=== PATIENT | female | born 1945 | race Caucasian/White ===

== ENCOUNTER 2019-01-02 12:06 | Inpatient (IN) | payer MEDICARE | END 2019-01-07 15:30 | disposition home or self-care (01) | LOC: ED 12:06 → MED SURG 14:55 ==

== ENCOUNTER 2020-07-06 17:03 | Emergency (ER) | payer MEDICARE ==
[2020-07-06] MEDS ORDERED: Sodium Chloride 0.9% 500 ML 500 ML IV ONE ×2 (17:56→17:59)
[2020-07-06 18:05] VITALS: O2SAT 99
[2020-07-06 18:20] LABS: INR 1.39 (0.8-3.0); PROTIME 15.8 SECONDS (9.95-12.35)
--- NOTE | 2020-07-06 18:23 | ERPHSYRPT ---
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 She sees a evaluation analyst, Dr. Navarro. His office called the patient and contacted us to let us know that the patient would be coming to the emergency department. Patient states that she has had shortness of breath for over a year. She is on Eliquis chronically. In the last 2 months her shortness of breath has increased. Patient denies chest pain. Patient was sent here because of her shortness of breath and a finding of an elevated D-dimer, 597, to obtain a CTA of chest. Timing/Duration: gradual onset Activities at Onset: none Severity of Dyspnea-Max: mild Severity of Dyspnea-Current: mild Possible Cause: chronic episodes Modifying Factors: Improves With: activity, exertion Associated Symptoms: No cough, No chest pain/discomfort, No fever Allergies/Adverse Reactions: pumpkin Adverse Reaction (Verified 07/06/20 17:09) Home Medications: Furosemide 40 mg [Lasix 40 MG] 40 mg PO DAILY 05/28/16 [History] Metformin HCl 500 mg PO HS 05/28/16 [History] Methocarbamol 750 mg PO Q6-8HPRN PRN 05/28/16 [History] Potassium Chloride 10 Meq Tab* [Klor Con 10 MEQ] 10 meq PO DAILY 05/28/16 [History] Pravastatin Sodium [Pravachol] 20 mg PO HS 05/28/16 [History] Turmeric Root Extract [Turmeric] 500 mg PO DAILY 05/28/16 [History] Hydrocodone Bit/Acetaminophen [[place] 5-325 Tablet] 1 tab PO Q6HPRN PRN 08/27/16 [History] Fluticasone Propionate 2 spray IN BID 02/17/17 [History] Magnesium Oxide [Magnesium] 2 tab PO DAILY 02/17/17 [History] Melatonin/Pyridoxine HCl (B6) [Melatonin Tr 10 mg Tablet] 10 mg PO HS 02/17/17 [History] Olmesartan/Hydrochlorothiazide [Benicar Hct 20-12.5 mg Tablet] 0.5 tab PO QAM 02/17/17 [History] Albuterol Sulfate [Proair Respiclick] 90 mcg IH Q4-6HPRN PRN 01/02/19 [History] Diclofenac Sodium [Diclo Gel] 1 each TOP DAILY 01/02/19 [History] Duloxetine HCl 30 mg [Cymbalta 30 MG Capsule] 60 mg PO HS 01/02/19 [History] Ergocalciferol (Vitamin D2) [Vitamin D2] 1 each PO WEEKLY 01/02/19 [History] Furosemide 40 mg [Lasix 40 MG] 40 mg PO DAILY 01/02/19 [History] Gabapentin 100 mg PO TID 01/02/19 [History] Levothyroxine Sodium 25 Mcg [Synthroid 25 Mcg] 25 mcg PO DAILY 01/02/19 [History] Hx Tetanus, Diphtheria Vaccination/Date Given: Yes Hx Influenza Vaccination/Date Given: No Hx Pneumococcal Vaccination/Date Given: No Immunizations Up to Date: Yes Travel Risk - International Travel Have you traveled outside of the country in past 3 weeks: No - Coronavirus Screening Are you exhibiting any of the following symptoms?: No Close contact with a COVID-19 positive Pt in past 14-21 Days: No - Review of Systems Constitutional: No Symptoms Eyes: No Symptoms Ears, Nose, & Throat: No Symptoms Respiratory: Dyspnea Cardiac: No Symptoms, No Chest Pain Abdominal/Gastrointestinal: No Symptoms Genitourinary Symptoms: No Symptoms Musculoskeletal: No Symptoms Skin: No Symptoms Neurological: No Symptoms Psychological: No Symptoms Endocrine: No Symptoms Hematologic/Lymphatic: No Symptoms Immunological/Allergic: No Symptoms All Other Systems: Reviewed and Negative - Past Medical History Pertinent Past Medical History: No Neurological History: No Pertinent History ENT History: Cataracts Cardiac History: High Cholesterol, Hypertension, Other Respiratory History: Bronchitis Endocrine Medical History: Diabetes Type II, Hypothyroidism Musculoskeletal History: Arthritis, Fibromyalgia GI Medical History: No Pertinent History, Diverticulitis, Diverticulosis History: No Pertinent History Psycho-Social History: Depression Female Reproductive Disorders: No Pertinent History Other Medical History: FIBROMYALGIA, pt has "flappy valves" - Past Surgical History Past Surgical History: Yes Neuro Surgical History: No Pertinent History Cardiac: No Pertinent History Respiratory: No Pertinent History Gastrointestinal: No Pertinent History Genitourinary: No Pertinent History Musculoskeletal: Other Female Surgical History: Tubal Ligation Other Surgical History: repair of broken finger, right shoulder surgery,removed bone spurs, aurora . IOL, repair torn retna right eye - Social History Smoking Status: Former smoker How long have you smoked: Years Exposure to second hand smoke: No Drug Use: none Patient Lives Alone: Yes - Female History Hx Last Menstrual Period: post Hx Now: No - Nursing Vital Signs Nursing Vital Signs: Initial Vital Signs Temperature 98.0 F 07/06/20 17:18 Pulse Rate 81 07/06/20 17:18 Respiratory Rate 18 07/06/20 17:18 Blood Pressure 152/53 07/06/20 17:18 O2 Sat by Pulse Oximetry 93 L 07/06/20 17:18 Pain Scale Pain Intensity 0 - Physical Exam General Appearance: no apparent distress, alert, obese Eye Exam: PERRL/EOMI, eyes nml inspection Ears, Nose, Throat Exam: hearing grossly normal, normal ENT inspection, normal pharynx Neck Exam: normal inspection, non-tender, supple, full range of motion Respiratory Exam: normal breath sounds, lungs clear, prolonged expirations, No chest tenderness, No respiratory distress Cardiovascular/Chest Exam: normal heart sounds, regular rate/rhythm, murmur, normal peripheral pulses Abdominal/Gastrointestinal Exam: soft, normal bowel sounds, No tenderness Rectal Exam: not done Extremity Exam: non-tender, normal range of motion, normal inspection, normal capillary refill, no calf tenderness, no pedal edema, pelvis stable Neurologic Exam: alert, oriented x 3, cooperative, steward/stewardess club car II-XII nml as tested, normal mood/affect, nml cerebellar function, nml station & gait, sensation nml Skin Exam: normal color, warm, dry Lymphatic Exam: No adenopathy SpO2 Interpretation: normal SpO2: 99 O2 Delivery: Room Air - Course Nursing assessment & vital signs reviewed: Yes EKG Interpreted by Me: RATE (77), Sinus Rhythm, NORMAL AXIS, LAFB, NORMAL INTERVALS, Right Bundle Branch Block, NORMAL ST-T, Other (Comparison EKG is 01/09/2020. There is persistent LA FB. There is resolution of ST depression ST elevation. There are no acute ischemic changes on today's EKG.) Ordered Tests: Active Orders 24 hr Category Date Time Status Matcher STAT Care 07/06/20 17:22 Active EKG-ER Only STAT Care 07/06/20 17:22 Active IV Insertion STAT Care 07/06/20 17:22 Active Oxygen-ED Only Nasal Cannula 2 lpm Care 07/06/20 17:22 Active Pulse Oximetry (ED) STAT Care 07/06/20 17:22 Active CHEST WITH CONTRAST [CT] Stat Exams 07/06/20 18:23 Taken PROTIME WITH INR Stat Lab 07/06/20 17:52 Completed TROPONIN Q3H Lab 07/06/20 17:18 Completed TROPONIN Q3H Lab 07/06/20 21:00 Ordered TROPONIN Q3H Lab 07/07/20 00:00 Ordered TROPONIN Q3H Lab 07/07/20 03:00 Ordered TROPONIN Q3H Lab 07/07/20 06:00 Ordered Medication Summary Discontinued Medications Generic Name Dose Route Start Last Admin Trade Name Freq PRN Reason Stop Dose Admin Sodium Chloride 500 mls @ 500 mls/hr 07/06/20 17:56 07/06/20 18:00 Sodium Chloride 0.9% 500 Ml IV 07/06/20 18:55 500 mls/hr .Q1H ONE Administration Sodium Chloride Confirm 07/06/20 17:59 Sodium Chloride 0.9% 500 Ml Administered 07/06/20 18:00 Dose 500 mls @ ud IV .STK-MED ONE Lab/Rad Data: Laboratory Results 07/06/20 07/06/20 Range/Units 17:52 17:18 PT 15.8 H (9.95-12.35) SECONDS INR 1.39 (0.8-3.0) Troponin I < 0.012 (0.000-0.034) ng/mL - Progress Progress: improved, re-examined Air Movement: good Progress Note: 07/06/20 19:08 CTA of chest reveals no acute cardiopulmonary process. There is no evidence of any pulmonary emboli. Medical decision making: This patient does not have pulmonary emboli. She has no chest pain and has chronic shortness of breath. Her BNP is normal as is her electrolytes. CAT scan does not show any acute cardiopulmonary process on the CTA of the chest. We will discharge the patient to home. 07/06/20 19:09 Blood Culture(s) Obtained: No Antibiotics given: No Counseled pt/family regarding: lab results, diagnosis, need for follow-up, rad results - Departure Departure Disposition: Home Clinical Impression: Chronic shortness of breath Condition: Stable Critical Care Time: No Referrals: DOREEN RAVI DO [Primary Care Provider] - Additional Instructions: Take your medications as prescribed. Follow-up with your primary care physician and evaluation analyst for further management.
[2020-07-06 19:02] VITALS: PULSE 76
[2020-07-06 19:09] VITALS: BP 149/82
--- NOTE | 2020-07-07 07:34 | XRAY ---
Indication: Short of breath. History DVT. Elevated d-dimer. Multiple contiguous axial images obtained through the chest using 80 cc Isovue 370 contrast and PE protocol. Comparison: CT chest without contrast May 14, 2020. There is good opacification of the pulmonary arteries to include the lobar and segmental branches. No pulmonary embolus. Heart is not enlarged. Aorta remains normal in course and caliber with mild scattered calcifications. No pathologic mediastinal/hilar lymphadenopathy. Lungs demonstrate minimal bilateral dependent atelectasis with stable large right upper lobe calcified granuloma. No new pulmonary mass, infiltrate, consolidation, or effusion. Bony thorax intact again with mild degenerative changes throughout the spine and right shoulder arthroplasty. Limited upper abdomen again demonstrates fatty liver. Impression: 1. Negative pulmonary embolus. No acute cardiopulmonary abnormalities. 2. Stable right upper lobe calcified granuloma, fatty liver, and chronic bony findings.
== END 2020-07-06 19:36 | disposition home or self-care (01) ==
LOC: ED 17:03
DX: R06.02 Shortness of breath (principal); R79.89 Other specified abnormal findings of blood chemistry; R06.00 Dyspnea, unspecified; E78.5 Hyperlipidemia, unspecified; I10 Essential (primary) hypertension; E11.9 Type 2 diabetes mellitus without complications; E03.9 Hypothyroidism, unspecified; Z79.01 Long term (current) use of anticoagulants
CPT/HCPCS: 36000; 36415; 71260; 80053; 83735; 83880; 84484; 85379; 85610; 93005; 93041; 94760; 96360; 99284

== ENCOUNTER 2022-03-17 09:56 | Day surgery (SDC) | payer MEDICARE ==
--- NOTE | 2022-03-17 08:43 | HP ---
DATE OF SURGERY: 03/17/2022 HISTORY OF PRESENT ILLNESS: The patient is a 76-year-old had some diarrhea, some right upper quadrant aches and pain at times. CT scan showed cholelithiasis, Off and on nausea worse with chicken. Denies any liver problems. PAST MEDICAL HISTORY: Arthritis, asthma, cataracts, chronic obstructive pulmonary disease, hypertension, heart disease, diabetes, detached retina in the past. PAST SURGICAL HISTORY: Cataracts. Knee arthroplasty in the past. MEDICATIONS: Fluticasone, gabapentin, furosemide, potassium chloride, fish oil, allopurinol, Eliquis, carvedilol, lisinopril, levothyroxine, escitalopram, vitamin D3, melatonin, magnesium. ALLERGIES: YEAST TABLETS. MULTI-VITAMINS. PUMPKIN. FAMILY HISTORY: Diabetes, hypertension, heart disease, migraines, Parkinson's, cancer. SOCIAL HISTORY: Former smoking. No alcohol abuse. REVIEW OF SYSTEMS: Fourteen systems reviewed. No chest pain or palpitations. Other systems negative or noncontributory as above and per preadmission questionnaire. PHYSICAL EXAMINATION: GENERAL: No acute distress. HEENT: Sclerae nonicteric. NECK: No JVD. CHEST: Equal excursion, nonlabored breathing. CVS: Regular rate and rhythm. ABDOMEN: Soft. No peritoneal signs. Mild right upper quadrant tenderness. EXTREMITIES: No significant edema. NEURO: Alert, oriented, moving extremities symmetrically. PSYCH: Appropriate mood and affect. IMPRESSION: Acute exacerbation of chronic cholecystitis, cholelithiasis. I feel the patient will benefit from cholecystectomy. Risks and benefits explained in detail including but not limited to bleeding or infection, risk of trocar injury or hernia, risk of bowel, bladder or blood vessel injury, risk of bile leak, bile duct injury, retained stone or sludge possibly requiring further procedure either open or ERCP, general risk of anesthesia, deep venous thrombosis, pulmonary embolism, pneumonia, perioperative risk of aches, pains, bloating, constipation and/or loose stools possibly even chronic in nature, possibility of no improvement of diarrhea. She understands and agrees to the planned procedure, will proceed with laparoscopic cholecystectomy with possible open.
[2022-03-17] MEDS ORDERED: Lactated Ringers 1,000 ML IV SCH (10:30)
[2022-03-17] MEDS ORDERED: Lactated Ringers 1,000 ML IV ONE (10:42)
[2022-03-17] MEDS ORDERED: MEFOXIN 2 GM PREMIX** 2 GM/50 ML ML IV ONE (10:43)
[2022-03-17] MEDS ORDERED: MEFOXIN 2 GM PREMIX** 2 GM/50 ML ML IV SCH (11:00)
[2022-03-17] MEDS ORDERED: Lasix 20 MG/2 ML ONE (11:00)
[2022-03-17 12:45] LABS: ANION GAP 7.8 MEQ/L (5-15); BLOOD UREA NITROGEN 14 mg/dL (7-17); CHLORIDE 104 mmol/L (98-107); Calcium 9.5 mg/dL (8.4-10.2); Carbon Dioxide 34 mmol/L (22-30); Creatinine 1 0.85 mg/dL (0.52-1.04); EST GLOMERULAR FILTRATION RATE > 60.0 ML/MIN; Glucose 125 mg/dL (74-106); Potassium 5.2 mmol/L (3.5-5.1); SODIUM 141 mmol/L (137-145)
[2022-03-17] MEDS ORDERED: Decadron 4 MG INJ ONE (12:47)
[2022-03-17] MEDS ORDERED: DIPRIVAN 200 MG/20 ML IV ONE (12:47)
[2022-03-17] MEDS ORDERED: Quelicin Fliptop 200 MG/10 ML ONE (12:47)
[2022-03-17] MEDS ORDERED: Zofran 4 MG/2 ML VIAL ONE (12:47)
[2022-03-17] MEDS ORDERED: Zemuron 100 MG/10 ML ONE (12:47)
[2022-03-17] MEDS ORDERED: Xylocaine-Mpf 2% 5 Ml Vial ONE (12:47)
[2022-03-17] MEDS ORDERED: Versed 2 MG/2 ML Injection ONE (12:47)
[2022-03-17] MEDS ORDERED: SUBLIMAZE 100 MCG/2 ML ONE ×2 (12:47→14:34)
[2022-03-17] MEDS ORDERED: Pre-Attached Lta Kit TP ONE (12:55)
[2022-03-17] MEDS ORDERED: OFIRMEV 100 ML IV ONE (12:55)
[2022-03-17] MEDS ORDERED: Sensorcaine 0.25% 10 ML ONE (12:58)
[2022-03-17] MEDS ORDERED: Ephedrine Sulfate 50 MG/ML ONE (13:23)
[2022-03-17] MEDS ORDERED: ATROPINE SULFATE 1MG ONE (13:25)
[2022-03-17] MEDS ORDERED: BRIDION 200MG/2ML IV ONE (13:52)
[2022-03-17] MEDS ORDERED: Proair Hfa MDI IH ONE (14:04)
--- NOTE | 2022-03-17 15:25 | OP ---
SURGERY DATE/TIME: 03/17/2022 PREOPERATIVE DIAGNOSIS: Acute exacerbation of chronic cholecystitis, symptomatic cholelithiasis. POSTOPERATIVE DIAGNOSIS: Acute exacerbation of chronic cholecystitis, symptomatic cholelithiasis. PROCEDURE: Laparoscopic cholecystectomy. SURGEON: Dr. Cosmo Valencia. ANESTHESIA: General. ESTIMATED BLOOD LOSS: Minimal. INDICATIONS: As noted above. Risks and benefits explained in detail but not limited to and consent obtained. DESCRIPTION OF PROCEDURE AND FINDINGS: The patient is taken to the operating room. General anesthesia induced. Abdomen prepped and draped in usual sterile fashion. After official time out and no disagreement with planned procedure, a transverse incision made in the supraumbilical area. Fascia grasped and pulled up. Veress needle inserted and tested with saline. Pneumoperitoneum accomplished insufflating opening pressure of 0-15. An 11 mm bladeless port and camera were inserted without difficulty followed by two - 5 mm right upper quadrant ports and 5 mm epigastric port. The liver was smooth. No nodules. It was fatty infiltrated. Gallbladder had some mild chronic inflammatory reaction. It was lifted up over the edge of the liver and laterally away from Calot's triangle. Dissection carried posterior, lateral to anterior fashion. Cystic duct and infundibular area slowly and carefully well skeletonized as well as cystic artery until the critical view was obtained both anteriorly and posteriorly. Once this is accomplished, the cystic duct and cystic artery were clipped x3 and divided in the usual fashion. The gallbladder is slowly and carefully dissected free from its dense attachment to liver bed staying directly on the gallbladder wall clipping additional oozing side branches off the cystic artery vein directly on the gallbladder wall as necessary. Just prior to releasing from final attachments to the anterior edge of the liver, the liver bed re-inspected. Clips noted in place in the cystic duct and cystic artery stumps. No signs of any active bleeding or bile leakage. It was felt there was no benefit from drain placement. The gallbladder was released from final attachments, placed in a bag, pulled up into the 10/11 site in the epigastrium area this was pulled upward. The fascia just spread slightly allowing the gallbladder and bag to be pulled free and passed off. Fascia defect closed with puncture closer device with #1 Vicryl. Copious amount of irrigation accomplished lateral to the liver and subhepatic space until clear. Liver bed re-inspected. Clips noted in place cystic duct and cystic artery stumps. No signs of any active bleeding or bile leakage. It was felt there was no benefit in drain placement. At this point pneumoperitoneum decompressed. Again, transfascial #1 Vicryl were used to close the 10/11 site fascia defect. Pneumoperitoneum decompressed. Skin incision closed with 4-0 Vicryl. It should be noted that we made the usual incisions, her tissue was quite thin and stretched requiring additional extra suturing at the site. Steri-Strips and sterile dressing applied. 0.25% Marcaine local injected along the skin incision fascial defect at the beginning of the procedure. There were no immediate complications. There was no family to discuss the findings with at this time. If someone returns and has questions, I can be paged.
[2022-03-17 16:08] VITALS: BP 147/78; PULSE 70; O2SAT 94
[2022-03-18] MEDS ORDERED: Lasix 20 MG/2 ML IV ONE (10:59)
== END 2022-03-17 16:15 | disposition home or self-care (01) ==
LOC: SDC 09:56
PROVIDERS: ATTEND Surgery
DX: K81.1 Chronic cholecystitis (principal); E11.9 Type 2 diabetes mellitus without complications
CPT/HCPCS: 36415; 80048; 82947; 82962; 99100; J0330; J0461; J0694; J1100; J1940; J2250; J2405; J2704; J3010; A9270-GY

== ENCOUNTER 2023-03-21 12:44 | Emergency (ER) | payer MEDICARE ==
[2023-03-21 13:05] VITALS: TEMP 98.9; O2SAT 94
--- NOTE | 2023-03-21 13:41 | ERPHSYRPT ---
- History of Present Illness Time Seen by Provider: 03/21/23 13:36 Source: patient Patient Subjective Stated Complaint: PT HERE FOR BLOOD IN URINE OFF AND ON FOR OVER A MONTH WORSE LAST COUPLE DAYS , PT WENT TO CLINIC AND WAS PRIYA.D HER WAIT WOULD BE 3-4 HOURS SO SHE CAME HERE Triage Nursing Assessment: PT ALERT, WALKED IN , RESP EASY, SKIN W/D/P.ABD SOFT, TENDER TO LOWER , Physician History: Patient is a 77-year-old white female who presents with a complaint of blood in the urine since yesterday. She also complains of frequency urgency and some chills. She has no CVA tenderness or pain. She is on Eliquis for DVT. Timing/Duration: yesterday Activites at Onset: none Quality: burning, pressure, sharpness Onset Location: suprapubic Pain Radiation: suprapubic Severity of Pain-Max: moderate Severity of Pain-Current: moderate Prior abdominal problems: none Sexual intercourse history: non-contributory Modifying Factors: Improves With: nothing Associated Symptoms: fever, dysuria, polyuria, urinary frequency, loss of bladder control, vaginal fluid leakage Allergies/Adverse Reactions: pumpkin Adverse Reaction (Verified 03/21/23 13:05) Home Medications: Albuterol Common Canister [Ventolin Common Canister] 2 puff IH Q6H PRN PRN 08/21/21 [History] Allopurinol 300 mg [Zyloprim 300 mg] 300 mg PO DAILY 08/21/21 [History] Apixaban [Eliquis 5 mg Tablet] 5 mg PO BID 08/21/21 [History] Carvedilol 3.125 mg [Coreg 3.125 MG] 3.125 mg PO BID 08/21/21 [History] Cholecalciferol (Vitamin D3) [Vitamin D3] 125 mcg PO DAILY 08/21/21 [History] Escitalopram Oxalate [Lexapro] 20 mg PO DAILY 08/21/21 [History] Ezetimibe 10 mg [Zetia 10 MG] 10 mg PO DAILY 08/21/21 [History] Fexofenadine HCl [Jenni Allergy] 60 mg PO DAILY PRN PRN 08/21/21 [History] Furosemide 40 mg [Lasix 40 MG] 40 mg PO DAILY 08/21/21 [History] Gabapentin [Neurontin ] 100 mg PO DAILY PRN PRN 08/21/21 [History] Lisinopril 5 mg [Zestril 5 MG] 2.5 mg PO DAILY 08/21/21 [History] Magnesium Oxide 400 mg [Mag-Ox 400] 400 mg PO DAILY 08/21/21 [History] Melatonin 10 mg PO HS 08/21/21 [History] Non-Formulary Drug [Non-Formulary Bulk Item] 1 drop DROPS QID PRN 08/21/21 [History] [place]-3/Dha/Epa/Fish Oil [[place]-3 Fish Oil 1,000 mg Sfgl] 1,000 mg PO BID 08/21/21 [History] Potassium Chloride 10 meq PO DAILY 08/21/21 [History] Fluticasone Propionate [24 Hour Allergy] 9.9 ml NS DAILY 02/18/22 [History] Multivitamin 1 each PO DAILY 02/18/22 [History] Hx Tetanus, Diphtheria Vaccination/Date Given: No Hx Influenza Vaccination/Date Given: Yes Hx Pneumococcal Vaccination/Date Given: No Travel Risk - International Travel Have you traveled outside of the country in past 3 weeks: No - Coronavirus Screening Are you exhibiting any of the following symptoms?: No Close contact with a COVID-19 positive Pt in past 14-21 Days: No - Vaccine Status Have you recieved a Covid-19 vaccination: Yes Supervisor Line Department: Unknown - Vaccination Dates Date of 2cond Vaccination (if applicable): 07/2020 Dates if Unknown: unknown - Review of Systems Constitutional: No Fever, No Chills Eyes: No Symptoms Ears, Nose, & Throat: No Symptoms Respiratory: No Cough, No Dyspnea Cardiac: No Chest Pain, No Edema, No Syncope Abdominal/Gastrointestinal: No Abdominal Pain, No Nausea, No Vomiting, No Diarrhea Genitourinary Symptoms: Dysuria, Frequency, Hematuria, Urgency Musculoskeletal: No Back Pain, No Neck Pain Skin: No Rash Neurological: No Dizziness, No Focal Weakness, No Sensory Changes Psychological: No Symptoms Endocrine: No Symptoms All Other Systems: Reviewed and Negative - Past Medical History Pertinent Past Medical History: Yes Neurological History: Migraines ENT History: Cataracts Cardiac History: Arrhythmia, High Cholesterol, Hypertension Respiratory History: COPD Endocrine Medical History: Other Musculoskeletal History: Degenerative Disk Disease, Osteoarthritis GI Medical History: Diverticulitis, Diverticulosis History: No Pertinent History Psycho-Social History: Depression Female Reproductive Disorders: No Pertinent History Other Medical History: RIGHT KNEE REPLACEMENT 07/2021. CHOLECYSTECTOMY 02/2022 - Past Surgical History Past Surgical History: Yes Neuro Surgical History: No Pertinent History Cardiac: No Pertinent History Respiratory: No Pertinent History Gastrointestinal: Cholecystectomy Genitourinary: No Pertinent History Musculoskeletal: Other Female Surgical History: Tubal Ligation Other Surgical History: repair of broken finger, right shoulder surgery,removed bone spurs, aurora . IOL, repair torn retna right eye, right total knee replacement - Social History Smoking Status: Former smoker How long have you smoked: Years Exposure to second hand smoke: No Drug Use: none Patient Lives Alone: Yes - Nursing Vital Signs Nursing Vital Signs: Initial Vital Signs Temperature 98.9 F 03/21/23 13:04 Pulse Rate 73 03/21/23 13:04 Respiratory Rate 18 03/21/23 13:04 Blood Pressure 174/81 03/21/23 13:04 O2 Sat by Pulse Oximetry 94 L 03/21/23 13:04 Pain Scale Pain Intensity 4 - Physical Exam General Appearance: mild distress, alert Eye Exam: PERRL/EOMI, eyes nml inspection Ears, Nose, Throat Exam: normal ENT inspection, TMs normal, pharynx normal, moist mucous membranes Neck Exam: normal inspection, non-tender, supple, full range of motion Respiratory Exam: normal breath sounds, lungs clear, No respiratory distress Cardiovascular Exam: regular rate/rhythm, normal heart sounds, normal peripheral pulses Gastrointestinal/Abdomen Exam: soft, No tenderness, No mass Pelvic Exam: normal external exam Back Exam: normal inspection, normal range of motion, No CVA tenderness, No vertebral tenderness Extremity Exam: normal inspection, normal range of motion, pelvis stable Neurologic Exam: alert, oriented x 3, cooperative, compensation vice president II-XII nml as tested, normal mood/affect, sensation nml, No motor deficits Skin Exam: normal color, warm, dry Lymphatic Exam: No adenopathy SpO2: 94 - Course Nursing assessment & vital signs reviewed: Yes Ordered Tests: Active Orders 24 hr Category Date Time Status CULTURE,URINE Stat Lab 03/21/23 13:10 Received UA W/RFX UR CULTURE Stat Lab 03/21/23 13:10 Completed Lab/Rad Data: Laboratory Results 03/21/23 Range/Units 13:10 Urine Color Yellow (Yellow) Urine Appearance Cloudy A (Clear) Urine pH 7.0 (4.6-8.0) Ur Specific [place] 1.010 (1.005-1.030) Urine Protein Negative (Negative) Urine Glucose (UA) Negative (Negative) mg/dL Urine Ketones Negative (Negative) Urine Blood Large A (Negative) Urine Nitrite Negative (Negative) Urine Bilirubin Negative (Negative) Urine Urobilinogen 0.2 (0.2) mg/dL Ur Leukocyte Esterase Large A (Negative) U Hyaline Cast (Auto) NONE SEEN (0-2) /LPF Urine Microscopic RBC >100 A (0-5) /HPF Urine Microscopic WBC 51-100 A (0-5) /HPF Ur Epithelial Cells Rare (None Seen) /HPF Urine Bacteria None Seen (None Seen) /HPF Urine Culture Reflexed YES (NO) - Progress Progress: unchanged Air Movement: good Blood Culture(s) Obtained: No Antibiotics given: Yes Medical Desision Making - Diagnostic Testing Diagnostic test were ordered, analyzed, and reviewed by me: Yes Radiological Interpretation: Reviewed by me - Risk of complications Minimal Risk: Minimal risk of morbidity - Departure Departure Disposition: Home Clinical Impression: Hemorrhagic cystitis Condition: Stable Critical Care Time: No Referrals: LUCAS BALLARD NP, RN [Primary Care Provider] - Follow up/PCP as directed Instructions: Urinary Tract Infection, Adult (DC) Prescriptions: Cephalexin Mh 500 mg [Keflex 500 mg] 500 mg PO QID #40 cap
[2023-03-21 13:53] LABS: Appearance Cloudy (Clear); Bacteria None Seen /HPF (None Seen); Bilirubin Negative (Negative); Blood Large (Negative); Epithelial Cells Rare /HPF (None Seen); Glucose, Urine Negative (Negative); Hyaline Casts NONE SEEN /LPF (0-2); Ketones Negative (Negative); Leukocyte Esterase Large (Negative); Nitrite Negative (Negative); Protein,Urine Dip Negative (Negative); RBC >100 /HPF (0-5); Urobilinogen 0.2 mg/dL (0.2); WBC 51-100 /HPF (0-5)
[2023-03-21 14:06] LABS: ADD URINE CULTURE? YES (NO)
[2023-03-21 14:28] VITALS: BP 131/55; PULSE 59; RESP 17
== END 2023-03-21 14:35 | disposition home or self-care (01) ==
LOC: ED 12:44
DX: N30.91 Cystitis, unspecified with hematuria (principal); R35.0 Frequency of micturition; E78.5 Hyperlipidemia, unspecified; I10 Essential (primary) hypertension; Z79.01 Long term (current) use of anticoagulants; Z79.899 Other long term (current) drug therapy
CPT/HCPCS: 81001; 87086; 99282

== ENCOUNTER 2024-06-18 11:21 | Observation (INO) | payer MEDICARE, OTHER ==
--- NOTE | 2024-06-18 11:33 | ERPHSYRPT ---
- History of Present Illness Time Seen by Provider: 06/18/24 11:32 Historian: patient, family, EMS, old records Exam Limitations: no limitations Patient Subjective Stated Complaint: pt c/o of cough, nausea, body aches, headache, weakness Triage Nursing Assessment: Pt brought to the ER by EMS, vitals wnl, rates generalized pain as 7/10, pulses normal, skin n/w/d, last intake yesterday, drank katharina ilene today, no difficulty breathing, nauseous but no vomiting, doesn't appear to be in any distress Physician History: This is an obese 79-year-old white female patient of Dr. Richards who presents to the emergency department transported by paramedics from home secondary to cough, nausea without vomiting, diarrhea, headache and bodyaches. She also has had decreased oral intake. She feels weak generally. The symptoms began yesterday. She denies chest pain. She denies shortness of breath. She has no abdominal pain. Patient has a history of migraine headaches, arrhythmia on Eliquis, hyperlipidemia, hypertension, COPD, and degenerative disc disease. She has no known exposures to individuals with similar symptoms or who have been diagnosed with flu's. Timing/Duration: yesterday Activities at Onset: none Severity of Pain-Max: mild Severity of Pain-Current: mild Modifying Factors: Improves With: other (Decreased oral intake, nausea and diarrhea) Associated Symptoms: diarrhea, loss of appetite, nausea, weakness, No chest pain, No fever/chills, No shortness of breath Previous symptoms: no prior history Allergies/Adverse Reactions: pumpkin Adverse Reaction (Verified 06/18/24 11:31) Home Medications: Albuterol Common Canister [Ventolin Common Canister] 3 puff IH Q4H PRN PRN 08/21/21 [History] Allopurinol 300 mg [Zyloprim 300 mg] 300 mg PO DAILY 08/21/21 [History] Apixaban [Eliquis 5 mg Tablet] 5 mg PO BID 08/21/21 [History] Carvedilol 3.125 mg [Coreg 3.125 MG] 6.25 mg PO BID 08/21/21 [History] Cholecalciferol (Vitamin D3) [Vitamin D3] 250 mcg PO DAILY 08/21/21 [History] Escitalopram Oxalate [Lexapro] 20 mg PO DAILY 08/21/21 [History] Ezetimibe 10 mg [Zetia 10 MG] 10 mg PO DAILY 08/21/21 [History] Fexofenadine HCl [Jenni Allergy] 60 mg PO DAILY PRN PRN 08/21/21 [History] Furosemide 40 mg [Lasix 40 MG] 40 mg PO DAILY 08/21/21 [History] Gabapentin [Neurontin ] 100 mg PO DAILY PRN PRN 08/21/21 [History] Lisinopril 5 mg [Zestril 5 MG] 2.5 mg PO DAILY 08/21/21 [History] Magnesium Oxide 400 mg [Mag-Ox 400] 250 mg PO UD 08/21/21 [History] Melatonin 10 mg PO HS 08/21/21 [History] [place]-3/Dha/Epa/Fish Oil [[place]-3 Fish Oil 1,000 mg Sfgl] 1,000 mg PO BID 08/21/21 [History] Potassium Chloride 10 meq PO DAILY 08/21/21 [History] Fluticasone Propionate [24 Hour Allergy] 9.9 ml NS DAILY 02/18/22 [History] Cyclobenzaprine HCl 5 mg PO UD PRN 06/18/24 [History] Hydrocodone/Acetaminophen [Hydrocodone-Acetamin 5-325 mg] 1 tab PO BID 06/18/24 [History] Polymyxin B Sulf/Trimethoprim [Polymyxin B-Tmp Eye Drops] 1 drop OP UD 06/18/24 [History] Tirzepatide [Mounjaro] 7.5 mg SQ WEEKLY 06/18/24 [History] Hx Tetanus, Diphtheria Vaccination/Date Given: No Hx Influenza Vaccination/Date Given: Yes Hx Pneumococcal Vaccination/Date Given: No Travel Risk - International Travel Have you traveled outside of the country in past 3 weeks: No - Emerging Infectious Disease Are you exhibiting symptoms associated with any current EIDs: Yes Symptoms: Cough: New Onset, Diarrhea, Headaches/Body Aches/ - Review of Systems Constitutional: Weakness Eyes: No Symptoms Ears, Nose, & Throat: No Symptoms Respiratory: No Symptoms Cardiac: No Symptoms Abdominal/Gastrointestinal: Abdominal Pain (Generalized but mild), Nausea, Diarrhea, Appetite Changes, No Vomiting Genitourinary Symptoms: No Symptoms Musculoskeletal: No Symptoms Skin: No Symptoms Neurological: No Symptoms Psychological: No Symptoms Endocrine: No Symptoms Hematologic/Lymphatic: No Symptoms Immunological/Allergic: No Symptoms All Other Systems: Reviewed and Negative - Past Medical History Pertinent Past Medical History: Yes Neurological History: Migraines ENT History: Cataracts Cardiac History: Arrhythmia, High Cholesterol, Hypertension Respiratory History: COPD Endocrine Medical History: Other Musculoskeletal History: Degenerative Disk Disease, Osteoarthritis GI Medical History: Diverticulitis, Diverticulosis History: No Pertinent History Psycho-Social History: Depression Female Reproductive Disorders: No Pertinent History Other Medical History: RIGHT KNEE REPLACEMENT 07/2021. CHOLECYSTECTOMY 02/2022 - Past Surgical History Past Surgical History: Yes Neuro Surgical History: No Pertinent History Cardiac: No Pertinent History Respiratory: No Pertinent History Gastrointestinal: Cholecystectomy Genitourinary: No Pertinent History Musculoskeletal: Other Female Surgical History: Tubal Ligation Other Surgical History: repair of broken finger, right shoulder surgery,removed bone spurs, aurora . IOL, repair torn retna right eye, right total knee replacement - Social History Smoking Status: Former smoker How long have you smoked: Years Exposure to second hand smoke: No Drug Use: none Patient Lives Alone: Yes - Social Determinants of Health Will the patient participate in the screening: Yes Do you worry about a steady place to live?: No Do you have any problems with any of the following?: No known problems In the past 12 months,have you had to go without utilities?: No Transportation Issues: No Has anyone in your support network made you feel unsafe?: No Have you or anyone in your house had to go without enough: No - Nursing Vital Signs Nursing Vital Signs: Initial Vital Signs Temperature 97.4 F 06/18/24 11:23 Pulse Rate 62 06/18/24 11:23 Blood Pressure 146/46 06/18/24 11:23 O2 Sat by Pulse Oximetry 95 06/18/24 11:23 Pain Scale Pain Intensity 7 - Physical Exam General Appearance: mild distress, alert, anxiety, obese Eye Exam: PERRL/EOMI, eyes nml inspection Ears, Nose, Throat Exam: normal ENT inspection, moist mucous membranes Neck Exam: normal inspection, non-tender, supple, full range of motion Respiratory Exam: normal breath sounds, lungs clear, airway intact, No chest ten derness, No respiratory distress Cardiovascular Exam: regular rate/rhythm, normal heart sounds, normal peripheral pulses Gastrointestinal/Abdomen Exam: soft, normal bowel sounds, No tenderness, No guarding Pelvic Exam: not done Rectal Exam: not done Back Exam: normal inspection, normal range of motion, No CVA tenderness, No vertebral tenderness Extremity Exam: normal inspection, normal range of motion, pelvis stable Neurologic Exam: alert, oriented x 3, cooperative, director of patient care II-XII nml as tested, sensation nml Skin Exam: normal color, warm, dry Lymphatic Exam: No adenopathy SpO2 Interpretation: normal SpO2: 95 O2 Delivery: Room Air - Course Nursing assessment & vital signs reviewed: Yes Ordered Tests: Active Orders 24 hr Category Date Time Status EKG-ER Only STAT Care 06/18/24 11:34 Active IV Insertion STAT Care 06/18/24 11:34 Active CHEST 1 VIEW (PORTABLE) Stat Exams 06/18/24 13:05 Taken AMYLASE Stat Lab 06/18/24 11:45 Completed CBC W DIFF Stat Lab 06/18/24 11:34 Completed CMP Stat Lab 06/18/24 11:45 Completed LIPASE Stat Lab 06/18/24 11:45 Completed MAGNESIUM Stat Lab 06/18/24 11:45 Completed MONO SCREEN Stat Lab 06/18/24 11:45 Completed NT PRO BNPII Stat Lab 06/18/24 11:45 Completed PROTIME WITH INR Stat Lab 06/18/24 11:45 Completed TROPONIN Q4H Lab 06/18/24 11:45 Completed TROPONIN Q4H Lab 06/18/24 15:45 Ordered TROPONIN Q4H Lab 06/18/24 19:45 Ordered UA W/RFX UR CULTURE Stat Lab 06/18/24 11:57 Completed Medication Summary Generic Name Dose Route Start Last Admin Trade Name Freq PRN Reason Stop Dose Admin Sodium Chloride 1,000 mls @ 100 mls/hr 06/18/24 11:45 06/18/24 11:50 Sodium Chloride 0.9% 1000 Ml IV 07/18/24 11:44 100 mls/hr .Q10H TOBY Administration Discontinued Medications Generic Name Dose Route Start Last Admin Trade Name Freq PRN Reason Stop Dose Admin Ondansetron HCl 4 mg 06/18/24 11:34 06/18/24 11:50 Ondansetron Hcl 4 Mg/2 Ml Vial IV 06/18/24 11:35 4 mg STAT ONE Administration Ondansetron HCl Confirm 06/18/24 11:50 Ondansetron Hcl 4 Mg/2 Ml Vial Administered 06/18/24 11:51 Dose 4 mg .ROUTE .STK-MED ONE Lab/Rad Data: Laboratory Result Diagrams 06/18/24 11:34 06/18/24 11:45 Laboratory Results 06/18/24 06/18/24 06/18/24 Range/Units 12:00 11:57 11:45 WBC (3.98-10.04) x10^3/uL RBC (3.93-5.22) x10^6/uL Hgb (11.2-15.7) g/dL Hct (34.1-44.9) % MCV (79.4-94.8) fL MCH (25.6-32.2) pg MCHC (32.2-35.5) g/dL RDW (11.7-14.4) % Plt Count (182-369) x10^3/uL MPV (9.4-12.3) fL Gran % (34.0-71.1) % Immature Gran % (Auto) (0.001-0.429) % Nucleat RBC Rel Count (0.00-0.2) % Eos # (Auto) (0.04-0.36) x10^3/uL Immature Gran # (Auto) (0.001-0.031) x10^3u/L Absolute Lymphs (auto) (1.18-3.74) x10^3/uL Absolute Monos (auto) (0.24-0.86) x10^3/uL Absolute Nucleated RBC (0.00-0.012) x10^3u/L Lymphocytes % (19.3-51.7) % Monocytes % (4.7-12.5) % Eosinophils % (0.7-5.8) % Basophils % (0.1-1.2) % Absolute Granulocytes (1.56-6.13) x10^3/uL Basophils # (0.01-0.08) x10^3/uL PT (9.4-12.5) SECONDS INR (0.8-3.0) Sodium (135-145) mmol/L Potassium (3.5-5.1) mmol/L Chloride (98-107) mmol/L Carbon Dioxide (22-30) mmol/L Anion Gap (5-15) MEQ/L BUN (7-17) mg/dL Creatinine (0.52-1.04) mg/dL Estimated GFR ML/MIN Glucose (74-106) mg/dL Calcium (8.4-10.2) mg/dL Magnesium (1.6-2.3) mg/dL Total Bilirubin (0.2-1.3) mg/dL AST (14-36) U/L ALT (0-35) U/L Alkaline Phosphatase (38-126) U/L Troponin I (0.000-0.033) ng/mL NT-Pro-B Natriuret Pep (<300) pg/mL Serum Total Protein (6.3-8.2) g/dL Albumin (3.5-5.0) g/dL Amylase (30-110) U/L Lipase (23-300) U/L Urine Color Yellow (Yellow) Urine Appearance Clear (Clear) Urine pH 7.0 (4.6-8.0) Ur Specific [place] 1.010 (1.005-1.030) Urine Protein Negative (Negative) Urine Glucose (UA) Negative (Negative) mg/dL Urine Ketones Negative (Negative) Urine Blood Negative (Negative) Urine Nitrite Negative (Negative) Urine Bilirubin Negative (Negative) Urine Urobilinogen 0.2 (0.2) mg/dL Ur Leukocyte Esterase Negative (Negative) U Hyaline Cast (Auto) NONE SEEN (0-2) /LPF Urine Microscopic RBC 0-2 (0-5) /HPF Urine Microscopic WBC 0-2 (0-5) /HPF Ur Epithelial Cells None Seen (None Seen) /HPF Urine Bacteria None Seen (None Seen) /HPF Urine Culture Reflexed NO (NO) Monoscreen NEGATIVE (NEGATIVE) Influenza Type A Ag NEGATIVE (NEGATIVE) Influenza Type B Ag NEGATIVE (NEGATIVE) RSV (PCR) NEGATIVE (NEGATIVE) SARS-CoV-2 (PCR) NEGATIVE (NEGATIVE) 06/18/24 06/18/24 06/18/24 Range/Units 11:45 11:45 11:45 WBC (3.98-10.04) x10^3/uL RBC (3.93-5.22) x10^6/uL Hgb (11.2-15.7) g/dL Hct (34.1-44.9) % MCV (79.4-94.8) fL MCH (25.6-32.2) pg MCHC (32.2-35.5) g/dL RDW (11.7-14.4) % Plt Count (182-369) x10^3/uL MPV (9.4-12.3) fL Gran % (34.0-71.1) % Immature Gran % (Auto) (0.001-0.429) % Nucleat RBC Rel Count (0.00-0.2) % Eos # (Auto) (0.04-0.36) x10^3/uL Immature Gran # (Auto) (0.001-0.031) x10^3u/L Absolute Lymphs (auto) (1.18-3.74) x10^3/uL Absolute Monos (auto) (0.24-0.86) x10^3/uL Absolute Nucleated RBC (0.00-0.012) x10^3u/L Lymphocytes % (19.3-51.7) % Monocytes % (4.7-12.5) % Eosinophils % (0.7-5.8) % Basophils % (0.1-1.2) % Absolute Granulocytes (1.56-6.13) x10^3/uL Basophils # (0.01-0.08) x10^3/uL PT 11.2 (9.4-12.5) SECONDS INR 1.03 (0.8-3.0) Sodium 137 (135-145) mmol/L Potassium 4.3 (3.5-5.1) mmol/L Chloride 104 (98-107) mmol/L Carbon Dioxide 23 (22-30) mmol/L Anion Gap 13.5 (5-15) MEQ/L BUN 13 (7-17) mg/dL Creatinine 0.81 (0.52-1.04) mg/dL Estimated GFR 74.3 ML/MIN Glucose 122 H (74-106) mg/dL Calcium 9.4 (8.4-10.2) mg/dL Magnesium 2.1 (1.6-2.3) mg/dL Total Bilirubin 0.70 (0.2-1.3) mg/dL AST 45 H (14-36) U/L ALT 39 H (0-35) U/L Alkaline Phosphatase 68 (38-126) U/L Troponin I < 0.012 (0.000-0.033) ng/mL NT-Pro-B Natriuret Pep 468 (<300) pg/mL Serum Total Protein 6.5 (6.3-8.2) g/dL Albumin 4.4 (3.5-5.0) g/dL Amylase 49 (30-110) U/L Lipase 141 (23-300) U/L Urine Color (Yellow) Urine Appearance (Clear) Urine pH (4.6-8.0) Ur Specific [place] (1.005-1.030) Urine Protein (Negative) Urine Glucose (UA) (Negative) mg/dL Urine Ketones (Negative) Urine Blood (Negative) Urine Nitrite (Negative) Urine Bilirubin (Negative) Urine Urobilinogen (0.2) mg/dL Ur Leukocyte Esterase (Negative) U Hyaline Cast (Auto) (0-2) /LPF Urine Microscopic RBC (0-5) /HPF Urine Microscopic WBC (0-5) /HPF Ur Epithelial Cells (None Seen) /HPF Urine Bacteria (None Seen) /HPF Urine Culture Reflexed (NO) Monoscreen (NEGATIVE) Influenza Type A Ag (NEGATIVE) Influenza Type B Ag (NEGATIVE) RSV (PCR) (NEGATIVE) SARS-CoV-2 (PCR) (NEGATIVE) 06/18/24 Range/Units 11:34 WBC 5.4 (3.98-10.04) x10^3/uL RBC 5.01 (3.93-5.22) x10^6/uL Hgb 13.4 (11.2-15.7) g/dL Hct 42.8 (34.1-44.9) % MCV 85.4 (79.4-94.8) fL MCH 26.7 (25.6-32.2) pg MCHC 31.3 L (32.2-35.5) g/dL RDW 13.2 (11.7-14.4) % Plt Count 216 (182-369) x10^3/uL MPV 10.4 (9.4-12.3) fL Gran % 65.0 (34.0-71.1) % Immature Gran % (Auto) 0.4 (0.001-0.429) % Nucleat RBC Rel Count 0.0 (0.00-0.2) % Eos # (Auto) 0.06 (0.04-0.36) x10^3/uL Immature Gran # (Auto) 0.02 (0.001-0.031) x10^3u/L Absolute Lymphs (auto) 1.12 L (1.18-3.74) x10^3/uL Absolute Monos (auto) 0.66 (0.24-0.86) x10^3/uL Absolute Nucleated RBC 0.00 (0.00-0.012) x10^3u/L Lymphocytes % 20.7 (19.3-51.7) % Monocytes % 12.2 (4.7-12.5) % Eosinophils % 1.1 (0.7-5.8) % Basophils % 0.6 (0.1-1.2) % Absolute Granulocytes 3.52 (1.56-6.13) x10^3/uL Basophils # 0.03 (0.01-0.08) x10^3/uL PT (9.4-12.5) SECONDS INR (0.8-3.0) Sodium (135-145) mmol/L Potassium (3.5-5.1) mmol/L Chloride (98-107) mmol/L Carbon Dioxide (22-30) mmol/L Anion Gap (5-15) MEQ/L BUN (7-17) mg/dL Creatinine (0.52-1.04) mg/dL Estimated GFR ML/MIN Glucose (74-106) mg/dL Calcium (8.4-10.2) mg/dL Magnesium (1.6-2.3) mg/dL Total Bilirubin (0.2-1.3) mg/dL AST (14-36) U/L ALT (0-35) U/L Alkaline Phosphatase (38-126) U/L Troponin I (0.000-0.033) ng/mL NT-Pro-B Natriuret Pep (<300) pg/mL Serum Total Protein (6.3-8.2) g/dL Albumin (3.5-5.0) g/dL Amylase (30-110) U/L Lipase (23-300) U/L Urine Color (Yellow) Urine Appearance (Clear) Urine pH (4.6-8.0) Ur Specific [place] (1.005-1.030) Urine Protein (Negative) Urine Glucose (UA) (Negative) mg/dL Urine Ketones (Negative) Urine Blood (Negative) Urine Nitrite (Negative) Urine Bilirubin (Negative) Urine Urobilinogen (0.2) mg/dL Ur Leukocyte Esterase (Negative) U Hyaline Cast (Auto) (0-2) /LPF Urine Microscopic RBC (0-5) /HPF Urine Microscopic WBC (0-5) /HPF Ur Epithelial Cells (None Seen) /HPF Urine Bacteria (None Seen) /HPF Urine Culture Reflexed (NO) Monoscreen (NEGATIVE) Influenza Type A Ag (NEGATIVE) Influenza Type B Ag (NEGATIVE) RSV (PCR) (NEGATIVE) SARS-CoV-2 (PCR) (NEGATIVE) - Progress Progress: improved Progress Note: 06/18/24 12:03 My medical decision making and the assignment of at least moderate complexity to this patient's medical issue today is based on review of the patient's past medical history, review the patient's medication list, reviewed patient drug allergy list, history present illness and physical findings on examination. The workup in this patient includes placement of intravenous line, infusion of low rate normal saline, infusion of Zofran, CBC, CMP, amylase, lipase, magnesium level, urinalysis, troponin level BNP, twelve-lead EKG, viral test, monotest. Differential diagnosis includes but is not limited to dehydration, urinary tract infection, viral illness, electrolyte abnormalities, arrhythmia, myocardial infarction 06/18/24 15:16 I interpreted the patient's laboratory data results. Based on the laboratory data results I do not see an acute, emergent medical issue. I interpreted the patient's preliminary chest x-ray report. Compared to portable chest x-ray dated 01/30/2021, there is a questionable finding of cardiomegaly. There is also question of right base infiltrate versus fluid. Clinically, the patient continues to be weak and is short of breath. Her room air oxygen saturation level was initially 88 to 89% on room air. She was placed on 2 L of oxygen and increased to 98%. We attempted to ambulate her to see what happens to her oxygen saturation level without oxygen and it drops down to 90% 06/18/24 15:[address] Coker, our telehospitalist on at this time I reviewed the patient history, presenting complaint, physical exam findings and results of the workup performed. We will admit this patient for further evaluation and workup. 06/18/24 15:33 Counseled pt/family regarding: lab results, diagnosis, rad results Medical Desision Making - Independent Historian Additional History obtained from: Training And Development Rep/EMT - Discussion of managment Care discussed with:: hospitalist Reviewed:: Test results, Need for additional workup Agreed on:: decision to admit Will see patient: in hospital - Diagnostic Testing Diagnostic test were ordered, analyzed, and reviewed by me: Yes Radiological Interpretation: Interpreted by me, Teleradiologist Report - Risk of complications The pt has a high risk of morbidity or mortality based on: Decision regarding hospitilization or escalation of hosp level of care - Departure Departure Disposition: In-patient Admission Clinical Impression: Hypoxia, Shortness of breath, Weakness, Vomiting Condition: Fair Critical Care Time: No Referrals: DELTA RICHARDS DO [Primary Care Provider] - Follow up/PCP as directed
[2024-06-18] MEDS: Zofran 4 MG/2 ML VIAL IV ONE (11:50)
[2024-06-18] MEDS: Sodium Chloride 0.9% 1000 ML 1,000 ML IV SCH ×2 (11:50→20:32)
[2024-06-18] MEDS ORDERED: Zofran 4 MG/2 ML VIAL ONE (11:50)
[2024-06-18] MEDS ORDERED: Sodium Chloride 0.9% 1000 ML 1,000 ML ONE (11:50)
[2024-06-18 12:09] LABS: Absolute Neutrophil Ct (ANC) 3.52 x10^3/uL (1.56-6.13); BASOPHIL % 0.6 % (0.1-1.2); Basophil (Absolute #) 0.03 x10^3/uL (0.01-0.08); Eosinophil % 1.1 % (0.7-5.8); Eosinophil (Absolute #) 0.06 x10^3/uL (0.04-0.36); Hematocrit 42.8 % (34.1-44.9); Hemoglobin 13.4 g/dL (11.2-15.7); IMMATURE GRAN # 0.02 x10^3u/L (0.001-0.031); IMMATURE GRAN % 0.4 % (0.001-0.429); Lymphocyte (Absolute #) 1.12 x10^3/uL (1.18-3.74); Lymphocytes % 20.7 % (19.3-51.7); Mean Cell Volume 85.4 fL (79.4-94.8); Mean Corpuscular Hemoglobin 26.7 pg (25.6-32.2); Mean Corpuscular Hgb Concent. 31.3 g/dL (32.2-35.5); Mean Platelet Volume 10.4 fL (9.4-12.3); Monocyte (Absolute #) 0.66 x10^3/uL (0.24-0.86); Monocytes % 12.2 % (4.7-12.5); Platelet Count 216 x10^3/uL (182-369); Red Blood Count 5.01 x10^6/uL (3.93-5.22); Red Cell Distribution Width 13.2 % (11.7-14.4); White Blood Count 5.4 x10^3/uL (3.98-10.04)
[2024-06-18 12:20] LABS: Appearance Clear (Clear); Bacteria None Seen /HPF (None Seen); Bilirubin Negative (Negative); Blood Negative (Negative); Epithelial Cells None Seen /HPF (None Seen); Glucose, Urine Negative (Negative); Hyaline Casts NONE SEEN /LPF (0-2); Ketones Negative (Negative); Leukocyte Esterase Negative (Negative); Nitrite Negative (Negative); Protein,Urine Dip Negative (Negative); RBC 0-2 /HPF (0-5); Urobilinogen 0.2 mg/dL (0.2); WBC 0-2 /HPF (0-5)
[2024-06-18 12:30] LABS: ALBUMIN 4.4 g/dL (3.5-5.0); ANION GAP 13.5 MEQ/L (5-15); BILIRUBIN,TOTAL 0.7 mg/dL (0.2-1.3); Calcium 9.4 mg/dL (8.4-10.2); Creatinine 1 0.81 mg/dL (0.52-1.04); EST GLOMERULAR FILTRATION RATE 74.3 ML/MIN; MAGNESIUM 2.1 mg/dL (1.6-2.3); Potassium 4.3 mmol/L (3.5-5.1); Total Protein 6.5 g/dL (6.3-8.2)
[2024-06-18 12:41] LABS: NT PRO BNPII 468 pg/mL (<300); TROPONIN < 0.012 ng/mL (0.000-0.033)
[2024-06-18 12:49] LABS: INFLUENZA A NEGATIVE (NEGATIVE); INFLUENZA B NEGATIVE (NEGATIVE); RESPIRATORY SYNCTIAL VIRUS NEGATIVE (NEGATIVE); SARS-CoV-2 Xpert Express NEGATIVE (NEGATIVE)
[2024-06-18 12:57] LABS: INR 1.03 (0.8-3.0); PROTIME 11.2 SECONDS (9.4-12.5)
--- NOTE | 2024-06-18 16:04 | PCM.HP ---
<YVROSE CRAIG - Last Filed: 06/18/24 17:33> History of Present Illness - Chief Complaint Chief Complaint: hypoxia Date: 06/18/24 History of Present Illness: is a 79 year old female with a pmhx of DM, fibromyalgia, OA, HLD, arrhythmia, HTN, COPD, diverticulosis, and depression presented to ED 06/18/24 with complaints of [employer] cough, shortness of breath, body aches, nausea, diarrhea, headache, nasal congestion and generalized weakness since yesterday. No fever. Unable to tolerate diet. Additionally reports that she fell three weeks ago and has low back pain lumbar/sacral region. She describes the pain as intermittent and sharp. Aggravated with movement. No relieving factors. She rates the pain 9/10 on numerical pain scale. Denies cp, abdominal pain, DIALLO, dizziness, or vomiting. She is on RA during interview and states diarrhea has now resolved. Upon arrival to ED vitals stable. Spo2 on RA 88 to 89% on room air. She was placed on 2 L of oxygen and increased to 98%. Desaturation to 90% with ambulation. CXR per ED read cardiomegaly and possible right base infiltrate vs fluid. Lab findings with mildly elevated LFTs otherwise unremarkable. Respiratory viral panel negative. Admit for acute resp failure with hypoxia and pneumonia. - Review of Systems Constitutional: Fatigue, Weakness Eyes: No Symptoms Ears, Nose, & Throat: Nose Congestion Respiratory: Cough, Short Of Breath Cardiac: Edema (BLE) Abdominal/Gastrointestinal: Nausea, Diarrhea, Appetite Changes Genitourinary Symptoms: No Symptoms Musculoskeletal: Back Pain Skin: No Symptoms Neurological: No Symptoms Psychological: No Symptoms Endocrine: No Symptoms Hematologic/Lymphatic: No Symptoms Immunological/Allergic: No Symptoms Medications & Allergies Home Medications: Home Medication List Albuterol Common Canister [Ventolin Common Canister] 3 puff IH Q4H PRN PRN 08/21/21 [History Confirmed 06/18/24] Allopurinol 300 mg [Zyloprim 300 mg] 300 mg PO DAILY 08/21/21 [History Confirmed 06/18/24] Apixaban [Eliquis 5 mg Tablet] 5 mg PO BID 08/21/21 [History Confirmed 06/18/24] Carvedilol 3.125 mg [Coreg 3.125 MG] 6.25 mg PO BID 08/21/21 [History Confirmed 06/18/24] Cholecalciferol (Vitamin D3) [Vitamin D3] 250 mcg PO DAILY 08/21/21 [History Confirmed 06/18/24] Escitalopram Oxalate [Lexapro] 20 mg PO DAILY 08/21/21 [History Confirmed 06/18/24] Ezetimibe 10 mg [Zetia 10 MG] 10 mg PO DAILY 08/21/21 [History Confirmed 06/18/24] Fexofenadine HCl [Jenni Allergy] 60 mg PO DAILY 08/21/21 [History Confirmed 06/18/24] Furosemide 40 mg [Lasix 40 MG] 40 mg PO DAILY 08/21/21 [History Confirmed 06/18/24] Gabapentin [Neurontin ] 100 mg PO DAILY PRN PRN 08/21/21 [History Confirmed 06/18/24] Lisinopril 5 mg [Zestril 5 MG] 2.5 mg PO DAILY 08/21/21 [History Confirmed 06/18/24] Magnesium Oxide 400 mg [Mag-Ox 400] 250 mg PO UD 08/21/21 [History Confirmed 06/18/24] Melatonin 5 - 10 mg PO HS 08/21/21 [History Confirmed 06/18/24] Abell-3/Dha/Epa/Fish Oil [Abell-3 Fish Oil 1,000 mg Sfgl] 1,000 mg PO DAILY 08/21/21 [History Confirmed 06/18/24] Potassium Chloride 10 meq PO DAILY 08/21/21 [History Confirmed 06/18/24] Fluticasone Propionate [24 Hour Allergy] 9.9 ml NS DAILY 02/18/22 [History Confirmed 06/18/24] Acetaminophen 500 mg [Tylenol Extra Strength 500 mg] 500 mg PO Q6H PRN 06/18/24 [History Confirmed 06/18/24] Cyanocobalamin 500 Mcg [Vitamin B-12 500 MCG] 1,000 mcg PO DAILY 06/18/24 [History Confirmed 06/18/24] Cyclobenzaprine HCl 5 mg PO UD PRN 06/18/24 [History Confirmed 06/18/24] Hydrocodone/Acetaminophen [Hydrocodone-Acetamin 5-325 mg] 1 tab PO BID PRN 06/18/24 [History Confirmed 06/18/24] Meclizine HCl 25 mg [Antivert 25 mg] 25 mg PO UD PRN 06/18/24 [History Confirmed 06/18/24] Polymyxin B Sulf/Trimethoprim [Polymyxin B-Tmp Eye Drops] 1 drop OP UD 06/18/24 [History Confirmed 06/18/24] Rutin/Hesp/Bioflav/C/Rztatz326 [Bioflex Tablet] 1 tab PO DAILY 06/18/24 [History Confirmed 06/18/24] Tirzepatide [Mounjaro] 7.5 mg SQ WEEKLY 06/18/24 [History Confirmed 06/18/24] Allergies/Adverse Reactions: Allergies Allergy/AdvReac Type Severity Reaction Status Date / Time pumpkin AdvReac Verified 06/18/24 11:31 - Past Medical History Past Medical History: Yes Neurological History: Migraines ENT History: Cataracts Cardiac History: Arrhythmia, High Cholesterol, Hypertension Respiratory History: COPD Endocrine Medical History: Other Musculoskelatal History: Degenerative Disk Disease, Osteoarthritis GI Medical History: Diverticulitis, Diverticulosis History: No Pertinent History Pyscho-Social History: Depression Reproductive Disorders: No Pertinent History Comment: RIGHT KNEE REPLACEMENT 07/2021. CHOLECYSTECTOMY 02/2022 - Past Surgical History Past Surgical History: Yes Neuro Surgical History: No Pertinent History Cardiac History: No Pertinent History Respiratory Surgery: No Pertinent History GI Surgical History: Cholecystectomy Genitourinary Surgical Hx: No Pertinent History Musculskeletal Surgical Hx: Other Female Surgical History: Tubal Ligation Other Surgical History: repair of broken finger, right shoulder surgery,removed bone spurs, aurora . IOL, repair torn retna right eye, right total knee replacement Significant Family History: heart disease, cancer, diabetes - Social History Smoking Status: Former smoker How long have you smoked: Years Exposure to second hand smoke: No Alcohol: None Drug Use: none - Social Determinants of Health Will the patient participate in the screening: Yes Do you worry about a steady place to live?: No Do you have any problems with any of the following?: No known problems In the past 12 months,have you had to go without utilities?: No Have you or anyone in your house had to go without enough: No Transportation Issues: No Has anyone in your support network made you feel unsafe?: No - Physical Exam Vital Signs: Vital Signs - 24 hr Temp Pulse Resp BP BP Pulse Ox 06/18/24 15:35 95 06/18/24 15:00 144/48 98 06/18/24 14:37 62 131/84 96 06/18/24 14:34 171/89 06/18/24 14:33 158/80 06/18/24 14:32 167/73 06/18/24 14:01 68 22 147/56 94 L 06/18/24 13:30 60 20 111/96 92 L 06/18/24 13:00 128/44 06/18/24 12:30 142/50 88 L 06/18/24 12:00 133/46 93 L 06/18/24 11:30 159/54 89 L 06/18/24 11:23 97.4 F 62 146/46 95 General Appearance: no apparent distress Neurologic Exam: alert, oriented x 3, cooperative Eye Exam: PERRL/EOMI Ears, Nose, Throat Exam: normal ENT inspection Neck Exam: normal inspection Respiratory Exam: crackles/rales Cardiovascular Exam: regular rate/rhythm, normal heart sounds Gastrointestinal/Abdomen Exam: soft, normal bowel sounds Pelvic Exam: not done Rectal Exam: deferred Back Exam: normal inspection Extremity Exam: inflammation, swelling (BLE +1 pitting L trace R) Skin Exam: normal color Results - Labs Lab/Micro Results: Lab Results-Last 24 Hours 06/18/24 06/18/24 06/18/24 Range/Units 11:34 11:45 11:45 WBC 5.4 (3.98-10.04) x10^3/uL RBC 5.01 (3.93-5.22) x10^6/uL Hgb 13.4 (11.2-15.7) g/dL Hct 42.8 (34.1-44.9) % MCV 85.4 (79.4-94.8) fL MCH 26.7 (25.6-32.2) pg MCHC 31.3 L (32.2-35.5) g/dL RDW 13.2 (11.7-14.4) % Plt Count 216 (182-369) x10^3/uL MPV 10.4 (9.4-12.3) fL Gran % 65.0 (34.0-71.1) % Immature Gran % (Auto) 0.4 (0.001-0.429) % Nucleat RBC Rel Count 0.0 (0.00-0.2) % Eos # (Auto) 0.06 (0.04-0.36) x10^3/uL Immature Gran # (Auto) 0.02 (0.001-0.031) x10^3u/L Absolute Lymphs (auto) 1.12 L (1.18-3.74) x10^3/uL Absolute Monos (auto) 0.66 (0.24-0.86) x10^3/uL Absolute Nucleated RBC 0.00 (0.00-0.012) x10^3u/L Lymphocytes % 20.7 (19.3-51.7) % Monocytes % 12.2 (4.7-12.5) % Eosinophils % 1.1 (0.7-5.8) % Basophils % 0.6 (0.1-1.2) % Absolute Granulocytes 3.52 (1.56-6.13) x10^3/uL Basophils # 0.03 (0.01-0.08) x10^3/uL PT 11.2 (9.4-12.5) SECONDS INR 1.03 (0.8-3.0) Sodium 137 (135-145) mmol/L Potassium 4.3 (3.5-5.1) mmol/L Chloride 104 (98-107) mmol/L Carbon Dioxide 23 (22-30) mmol/L Anion Gap 13.5 (5-15) MEQ/L BUN 13 (7-17) mg/dL Creatinine 0.81 (0.52-1.04) mg/dL Estimated GFR 74.3 ML/MIN Glucose 122 H (74-106) mg/dL Calcium 9.4 (8.4-10.2) mg/dL Magnesium 2.1 (1.6-2.3) mg/dL Total Bilirubin 0.70 (0.2-1.3) mg/dL AST 45 H (14-36) U/L ALT 39 H (0-35) U/L Alkaline Phosphatase 68 (38-126) U/L Troponin I (0.000-0.033) ng/mL NT-Pro-B Natriuret Pep (<300) pg/mL Serum Total Protein 6.5 (6.3-8.2) g/dL Albumin 4.4 (3.5-5.0) g/dL Amylase 49 (30-110) U/L Lipase 141 (23-300) U/L Urine Color (Yellow) Urine Appearance (Clear) Urine pH (4.6-8.0) Ur Specific Mize (1.005-1.030) Urine Protein (Negative) Urine Glucose (UA) (Negative) mg/dL Urine Ketones (Negative) Urine Blood (Negative) Urine Nitrite (Negative) Urine Bilirubin (Negative) Urine Urobilinogen (0.2) mg/dL Ur Leukocyte Esterase (Negative) U Hyaline Cast (Auto) (0-2) /LPF Urine Microscopic RBC (0-5) /HPF Urine Microscopic WBC (0-5) /HPF Ur Epithelial Cells (None Seen) /HPF Urine Bacteria (None Seen) /HPF Urine Culture Reflexed (NO) Monoscreen (NEGATIVE) Influenza Type A Ag (NEGATIVE) Influenza Type B Ag (NEGATIVE) RSV (PCR) (NEGATIVE) SARS-CoV-2 (PCR) (NEGATIVE) 06/18/24 06/18/24 06/18/24 Range/Units 11:45 11:45 11:57 WBC (3.98-10.04) x10^3/uL RBC (3.93-5.22) x10^6/uL Hgb (11.2-15.7) g/dL Hct (34.1-44.9) % MCV (79.4-94.8) fL MCH (25.6-32.2) pg MCHC (32.2-35.5) g/dL RDW (11.7-14.4) % Plt Count (182-369) x10^3/uL MPV (9.4-12.3) fL Gran % (34.0-71.1) % Immature Gran % (Auto) (0.001-0.429) % Nucleat RBC Rel Count (0.00-0.2) % Eos # (Auto) (0.04-0.36) x10^3/uL Immature Gran # (Auto) (0.001-0.031) x10^3u/L Absolute Lymphs (auto) (1.18-3.74) x10^3/uL Absolute Monos (auto) (0.24-0.86) x10^3/uL Absolute Nucleated RBC (0.00-0.012) x10^3u/L Lymphocytes % (19.3-51.7) % Monocytes % (4.7-12.5) % Eosinophils % (0.7-5.8) % Basophils % (0.1-1.2) % Absolute Granulocytes (1.56-6.13) x10^3/uL Basophils # (0.01-0.08) x10^3/uL PT (9.4-12.5) SECONDS INR (0.8-3.0) Sodium (135-145) mmol/L Potassium (3.5-5.1) mmol/L Chloride (98-107) mmol/L Carbon Dioxide (22-30) mmol/L Anion Gap (5-15) MEQ/L BUN (7-17) mg/dL Creatinine (0.52-1.04) mg/dL Estimated GFR ML/MIN Glucose (74-106) mg/dL Calcium (8.4-10.2) mg/dL Magnesium (1.6-2.3) mg/dL Total Bilirubin (0.2-1.3) mg/dL AST (14-36) U/L ALT (0-35) U/L Alkaline Phosphatase (38-126) U/L Troponin I < 0.012 (0.000-0.033) ng/mL NT-Pro-B Natriuret Pep 468 (<300) pg/mL Serum Total Protein (6.3-8.2) g/dL Albumin (3.5-5.0) g/dL Amylase (30-110) U/L Lipase (23-300) U/L Urine Color Yellow (Yellow) Urine Appearance Clear (Clear) Urine pH 7.0 (4.6-8.0) Ur Specific Mize 1.010 (1.005-1.030) Urine Protein Negative (Negative) Urine Glucose (UA) Negative (Negative) mg/dL Urine Ketones Negative (Negative) Urine Blood Negative (Negative) Urine Nitrite Negative (Negative) Urine Bilirubin Negative (Negative) Urine Urobilinogen 0.2 (0.2) mg/dL Ur Leukocyte Esterase Negative (Negative) U Hyaline Cast (Auto) NONE SEEN (0-2) /LPF Urine Microscopic RBC 0-2 (0-5) /HPF Urine Microscopic WBC 0-2 (0-5) /HPF Ur Epithelial Cells None Seen (None Seen) /HPF Urine Bacteria None Seen (None Seen) /HPF Urine Culture Reflexed NO (NO) Monoscreen NEGATIVE (NEGATIVE) Influenza Type A Ag (NEGATIVE) Influenza Type B Ag (NEGATIVE) RSV (PCR) (NEGATIVE) SARS-CoV-2 (PCR) (NEGATIVE) 06/18/24 Range/Units 12:00 WBC (3.98-10.04) x10^3/uL RBC (3.93-5.22) x10^6/uL Hgb (11.2-15.7) g/dL Hct (34.1-44.9) % MCV (79.4-94.8) fL MCH (25.6-32.2) pg MCHC (32.2-35.5) g/dL RDW (11.7-14.4) % Plt Count (182-369) x10^3/uL MPV (9.4-12.3) fL Gran % (34.0-71.1) % Immature Gran % (Auto) (0.001-0.429) % Nucleat RBC Rel Count (0.00-0.2) % Eos # (Auto) (0.04-0.36) x10^3/uL Immature Gran # (Auto) (0.001-0.031) x10^3u/L Absolute Lymphs (auto) (1.18-3.74) x10^3/uL Absolute Monos (auto) (0.24-0.86) x10^3/uL Absolute Nucleated RBC (0.00-0.012) x10^3u/L Lymphocytes % (19.3-51.7) % Monocytes % (4.7-12.5) % Eosinophils % (0.7-5.8) % Basophils % (0.1-1.2) % Absolute Granulocytes (1.56-6.13) x10^3/uL Basophils # (0.01-0.08) x10^3/uL PT (9.4-12.5) SECONDS INR (0.8-3.0) Sodium (135-145) mmol/L Potassium (3.5-5.1) mmol/L Chloride (98-107) mmol/L Carbon Dioxide (22-30) mmol/L Anion Gap (5-15) MEQ/L BUN (7-17) mg/dL Creatinine (0.52-1.04) mg/dL Estimated GFR ML/MIN Glucose (74-106) mg/dL Calcium (8.4-10.2) mg/dL Magnesium (1.6-2.3) mg/dL Total Bilirubin (0.2-1.3) mg/dL AST (14-36) U/L ALT (0-35) U/L Alkaline Phosphatase (38-126) U/L Troponin I (0.000-0.033) ng/mL NT-Pro-B Natriuret Pep (<300) pg/mL Serum Total Protein (6.3-8.2) g/dL Albumin (3.5-5.0) g/dL Amylase (30-110) U/L Lipase (23-300) U/L Urine Color (Yellow) Urine Appearance (Clear) Urine pH (4.6-8.0) Ur Specific Mize (1.005-1.030) Urine Protein (Negative) Urine Glucose (UA) (Negative) mg/dL Urine Ketones (Negative) Urine Blood (Negative) Urine Nitrite (Negative) Urine Bilirubin (Negative) Urine Urobilinogen (0.2) mg/dL Ur Leukocyte Esterase (Negative) U Hyaline Cast (Auto) (0-2) /LPF Urine Microscopic RBC (0-5) /HPF Urine Microscopic WBC (0-5) /HPF Ur Epithelial Cells (None Seen) /HPF Urine Bacteria (None Seen) /HPF Urine Culture Reflexed (NO) Monoscreen (NEGATIVE) Influenza Type A Ag NEGATIVE (NEGATIVE) Influenza Type B Ag NEGATIVE (NEGATIVE) RSV (PCR) NEGATIVE (NEGATIVE) SARS-CoV-2 (PCR) NEGATIVE (NEGATIVE) - Radiology Impressions Radiology Exams & Impressions: Radiology Procedures Category Date Time Status CHEST 1 VIEW (PORTABLE) Stat Exams 06/18/24 13:05 Taken Assessment/Plan (1) Acute respiratory failure with hypoxia Current Visit: Yes Status: Acute Assessment & Plan: -Most likely secondary to pneumonia -?effusion -Supplemental oxygen with goal spo2 > 92% - RA at baseline -Currently on RA -CXR pending radiology read - per ED read infiltrates vs fluid -procal -respiratory panel negative -Flutter/IS -Cough syrup -Ceftriaxone/azithromycin -Lasix 40mg IV Code(s): J96.01 - ACUTE RESPIRATORY FAILURE WITH HYPOXIA (2) COPD exacerbation Current Visit: Yes Status: Acute Assessment & Plan: -See ARF Code(s): J44.1 - CHRONIC OBSTRUCTIVE PULMONARY DISEASE W (ACUTE) EXACERBATION (3) Infiltrate noted on imaging study Current Visit: Yes Status: Acute Assessment & Plan: -See ARF Code(s): R93.89 - ABNORMAL FINDINGS ON DX IMAGING OF OTH BODY STRUCTURES (4) HTN (hypertension) Current Visit: Yes Status: Acute Assessment & Plan: -continue home meds Code(s): I10 - ESSENTIAL (PRIMARY) HYPERTENSION (5) HLD (hyperlipidemia) Current Visit: Yes Status: Acute Assessment & Plan: -continue statin Code(s): E78.5 - HYPERLIPIDEMIA, UNSPECIFIED (6) Generalized weakness Current Visit: Yes Status: Acute Assessment & Plan: -most likely secondary to pneumonia -PT/OT when available Code(s): R53.1 - WEAKNESS (7) Nausea Current Visit: Yes Status: Acute Assessment & Plan: -anti-emetics -no vomiting Code(s): R11.0 - NAUSEA (8) Back pain Current Visit: Yes Status: Acute Assessment & Plan: -Reported fall three weeks ago with no follow up -Xray of lumbar/sacral spine -[place] for pain relief -home dosing VTE: Eliquis Dispo: 1-2 days Code status: Full code Code(s): M54.9 - DORSALGIA, UNSPECIFIED Telemedicine Encounter - Telemedicine Encounter Telemedicine Encounter: "The entirety of this encounter was performed via Telemedicine" This visit was performed using real-time audio and video connection between my location and thepatients locationwith the assistance of a surrogateat the patients location. Written or verbal consent was obtained from the patient/guardian to perform this [facility]. Any patient questions regarding the telemedicine interaction were answered. <CAROL LE - Last Filed: 01/26/25 09:14> History of Present Illness - Chief Complaint History of Present Illness: is a 79 year old female. - Physical Exam Vital Signs: Vital Signs - 24 hr Temp Pulse Resp BP BP Pulse Ox 06/19/24 08:00 97.5 F 66 13 130/59 90 L 06/19/24 05:05 61 16 93 L 06/19/24 04:00 97.3 F 69 16 147/66 91 L 06/19/24 00:00 97.9 F 68 18 116/56 91 L 06/18/24 19:50 97.7 F 64 20 137/61 93 L 06/18/24 18:39 68 16 93 L 06/18/24 17:10 96 06/18/24 16:49 96.3 F 66 18 171/72 96 06/18/24 16:31 160/57 06/18/24 16:00 68 18 109/76 98 06/18/24 15:35 95 06/18/24 15:30 157/55 97 06/18/24 15:00 144/48 98 06/18/24 14:37 62 131/84 96 06/18/24 14:34 171/89 06/18/24 14:33 158/80 06/18/24 14:32 167/73 06/18/24 14:01 68 22 147/56 94 L 06/18/24 13:30 60 20 111/96 92 L 06/18/24 13:00 128/44 06/18/24 12:30 142/50 88 L 06/18/24 12:00 133/46 93 L 06/18/24 11:30 159/54 89 L 06/18/24 11:23 97.4 F 62 146/46 95 Results - Labs Lab/Micro Results: Lab Results-Last 24 Hours 06/18/24 06/18/24 06/18/24 Range/Units 11:34 11:45 11:45 WBC 5.4 (3.98-10.04) x10^3/uL RBC 5.01 (3.93-5.22) x10^6/uL Hgb 13.4 (11.2-15.7) g/dL Hct 42.8 (34.1-44.9) % MCV 85.4 (79.4-94.8) fL MCH 26.7 (25.6-32.2) pg MCHC 31.3 L (32.2-35.5) g/dL RDW 13.2 (11.7-14.4) % Plt Count 216 (182-369) x10^3/uL MPV 10.4 (9.4-12.3) fL Gran % 65.0 (34.0-71.1) % Immature Gran % (Auto) 0.4 (0.001-0.429) % Nucleat RBC Rel Count 0.0 (0.00-0.2) % Eos # (Auto) 0.06 (0.04-0.36) x10^3/uL Immature Gran # (Auto) 0.02 (0.001-0.031) x10^3u/L Absolute Lymphs (auto) 1.12 L (1.18-3.74) x10^3/uL Absolute Monos (auto) 0.66 (0.24-0.86) x10^3/uL Absolute Nucleated RBC 0.00 (0.00-0.012) x10^3u/L Lymphocytes % 20.7 (19.3-51.7) % Monocytes % 12.2 (4.7-12.5) % Eosinophils % 1.1 (0.7-5.8) % Basophils % 0.6 (0.1-1.2) % Absolute Granulocytes 3.52 (1.56-6.13) x10^3/uL Basophils # 0.03 (0.01-0.08) x10^3/uL PT 11.2 (9.4-12.5) SECONDS INR 1.03 (0.8-3.0) Sodium 137 (135-145) mmol/L Potassium 4.3 (3.5-5.1) mmol/L Chloride 104 (98-107) mmol/L Carbon Dioxide 23 (22-30) mmol/L Anion Gap 13.5 (5-15) MEQ/L BUN 13 (7-17) mg/dL Creatinine 0.81 (0.52-1.04) mg/dL Estimated GFR 74.3 ML/MIN Glucose 122 H (74-106) mg/dL POC Glucometer (74 to 106) mg/dL Hemoglobin A1c (4.5-6.0) % Calcium 9.4 (8.4-10.2) mg/dL Magnesium 2.1 (1.6-2.3) mg/dL Total Bilirubin 0.70 (0.2-1.3) mg/dL AST 45 H (14-36) U/L ALT 39 H (0-35) U/L Alkaline Phosphatase 68 (38-126) U/L Troponin I (0.000-0.033) ng/mL NT-Pro-B Natriuret Pep (<300) pg/mL Serum Total Protein 6.5 (6.3-8.2) g/dL Albumin 4.4 (3.5-5.0) g/dL Amylase 49 (30-110) U/L Lipase 141 (23-300) U/L Urine Color (Yellow) Urine Appearance (Clear) Urine pH (4.6-8.0) Ur Specific Mize (1.005-1.030) Urine Protein (Negative) Urine Glucose (UA) (Negative) mg/dL Urine Ketones (Negative) Urine Blood (Negative) Urine Nitrite (Negative) Urine Bilirubin (Negative) Urine Urobilinogen (0.2) mg/dL Ur Leukocyte Esterase (Negative) U Hyaline Cast (Auto) (0-2) /LPF Urine Microscopic RBC (0-5) /HPF Urine Microscopic WBC (0-5) /HPF Ur Epithelial Cells (None Seen) /HPF Urine Bacteria (None Seen) /HPF Urine Culture Reflexed (NO) Monoscreen (NEGATIVE) Influenza Type A Ag (NEGATIVE) Influenza Type B Ag (NEGATIVE) RSV (PCR) (NEGATIVE) SARS-CoV-2 (PCR) (NEGATIVE) 06/18/24 06/18/24 06/18/24 Range/Units 11:45 11:45 11:45 WBC (3.98-10.04) x10^3/uL RBC (3.93-5.22) x10^6/uL Hgb (11.2-15.7) g/dL Hct (34.1-44.9) % MCV (79.4-94.8) fL MCH (25.6-32.2) pg MCHC (32.2-35.5) g/dL RDW (11.7-14.4) % Plt Count (182-369) x10^3/uL MPV (9.4-12.3) fL Gran % (34.0-71.1) % Immature Gran % (Auto) (0.001-0.429) % Nucleat RBC Rel Count (0.00-0.2) % Eos # (Auto) (0.04-0.36) x10^3/uL Immature Gran # (Auto) (0.001-0.031) x10^3u/L Absolute Lymphs (auto) (1.18-3.74) x10^3/uL Absolute Monos (auto) (0.24-0.86) x10^3/uL Absolute Nucleated RBC (0.00-0.012) x10^3u/L Lymphocytes % (19.3-51.7) % Monocytes % (4.7-12.5) % Eosinophils % (0.7-5.8) % Basophils % (0.1-1.2) % Absolute Granulocytes (1.56-6.13) x10^3/uL Basophils # (0.01-0.08) x10^3/uL PT (9.4-12.5) SECONDS INR (0.8-3.0) Sodium (135-145) mmol/L Potassium (3.5-5.1) mmol/L Chloride (98-107) mmol/L Carbon Dioxide (22-30) mmol/L Anion Gap (5-15) MEQ/L BUN (7-17) mg/dL Creatinine (0.52-1.04) mg/dL Estimated GFR ML/MIN Glucose (74-106) mg/dL POC Glucometer (74 to 106) mg/dL Hemoglobin A1c 5.33 (4.5-6.0) % Calcium (8.4-10.2) mg/dL Magnesium (1.6-2.3) mg/dL Total Bilirubin (0.2-1.3) mg/dL AST (14-36) U/L ALT (0-35) U/L Alkaline Phosphatase (38-126) U/L Troponin I < 0.012 (0.000-0.033) ng/mL NT-Pro-B Natriuret Pep 468 (<300) pg/mL Serum Total Protein (6.3-8.2) g/dL Albumin (3.5-5.0) g/dL Amylase (30-110) U/L Lipase (23-300) U/L Urine Color (Yellow) Urine Appearance (Clear) Urine pH (4.6-8.0) Ur Specific Mize (1.005-1.030) Urine Protein (Negative) Urine Glucose (UA) (Negative) mg/dL Urine Ketones (Negative) Urine Blood (Negative) Urine Nitrite (Negative) Urine Bilirubin (Negative) Urine Urobilinogen (0.2) mg/dL Ur Leukocyte Esterase (Negative) U Hyaline Cast (Auto) (0-2) /LPF Urine Microscopic RBC (0-5) /HPF Urine Microscopic WBC (0-5) /HPF Ur Epithelial Cells (None Seen) /HPF Urine Bacteria (None Seen) /HPF Urine Culture Reflexed (NO) Monoscreen NEGATIVE (NEGATIVE) Influenza Type A Ag (NEGATIVE) Influenza Type B Ag (NEGATIVE) RSV (PCR) (NEGATIVE) SARS-CoV-2 (PCR) (NEGATIVE) 06/18/24 06/18/24 06/18/24 Range/Units 11:57 12:00 16:00 WBC (3.98-10.04) x10^3/uL RBC (3.93-5.22) x10^6/uL Hgb (11.2-15.7) g/dL Hct (34.1-44.9) % MCV (79.4-94.8) fL MCH (25.6-32.2) pg MCHC (32.2-35.5) g/dL RDW (11.7-14.4) % Plt Count (182-369) x10^3/uL MPV (9.4-12.3) fL Gran % (34.0-71.1) % Immature Gran % (Auto) (0.001-0.429) % Nucleat RBC Rel Count (0.00-0.2) % Eos # (Auto) (0.04-0.36) x10^3/uL Immature Gran # (Auto) (0.001-0.031) x10^3u/L Absolute Lymphs (auto) (1.18-3.74) x10^3/uL Absolute Monos (auto) (0.24-0.86) x10^3/uL Absolute Nucleated RBC (0.00-0.012) x10^3u/L Lymphocytes % (19.3-51.7) % Monocytes % (4.7-12.5) % Eosinophils % (0.7-5.8) % Basophils % (0.1-1.2) % Absolute Granulocytes (1.56-6.13) x10^3/uL Basophils # (0.01-0.08) x10^3/uL PT (9.4-12.5) SECONDS INR (0.8-3.0) Sodium (135-145) mmol/L Potassium (3.5-5.1) mmol/L Chloride (98-107) mmol/L Carbon Dioxide (22-30) mmol/L Anion Gap (5-15) MEQ/L BUN (7-17) mg/dL Creatinine (0.52-1.04) mg/dL Estimated GFR ML/MIN Glucose (74-106) mg/dL POC Glucometer (74 to 106) mg/dL Hemoglobin A1c (4.5-6.0) % Calcium (8.4-10.2) mg/dL Magnesium (1.6-2.3) mg/dL Total Bilirubin (0.2-1.3) mg/dL AST (14-36) U/L ALT (0-35) U/L Alkaline Phosphatase (38-126) U/L Troponin I < 0.012 (0.000-0.033) ng/mL NT-Pro-B Natriuret Pep (<300) pg/mL Serum Total Protein (6.3-8.2) g/dL Albumin (3.5-5.0) g/dL Amylase (30-110) U/L Lipase (23-300) U/L Urine Color Yellow (Yellow) Urine Appearance Clear (Clear) Urine pH 7.0 (4.6-8.0) Ur Specific Mize 1.010 (1.005-1.030) Urine Protein Negative (Negative) Urine Glucose (UA) Negative (Negative) mg/dL Urine Ketones Negative (Negative) Urine Blood Negative (Negative) Urine Nitrite Negative (Negative) Urine Bilirubin Negative (Negative) Urine Urobilinogen 0.2 (0.2) mg/dL Ur Leukocyte Esterase Negative (Negative) U Hyaline Cast (Auto) NONE SEEN (0-2) /LPF Urine Microscopic RBC 0-2 (0-5) /HPF Urine Microscopic WBC 0-2 (0-5) /HPF Ur Epithelial Cells None Seen (None Seen) /HPF Urine Bacteria None Seen (None Seen) /HPF Urine Culture Reflexed NO (NO) Monoscreen (NEGATIVE) Influenza Type A Ag NEGATIVE (NEGATIVE) Influenza Type B Ag NEGATIVE (NEGATIVE) RSV (PCR) NEGATIVE (NEGATIVE) SARS-CoV-2 (PCR) NEGATIVE (NEGATIVE) 06/18/24 06/18/24 06/19/24 Range/Units 19:00 22:20 07:50 WBC 4.5 (3.98-10.04) x10^3/uL RBC 4.61 (3.93-5.22) x10^6/uL Hgb 12.3 (11.2-15.7) g/dL Hct 40.6 (34.1-44.9) % MCV 88.1 (79.4-94.8) fL MCH 26.7 (25.6-32.2) pg MCHC 30.3 L (32.2-35.5) g/dL RDW 13.5 (11.7-14.4) % Plt Count 185 (182-369) x10^3/uL MPV 10.5 (9.4-12.3) fL Gran % 63.1 (34.0-71.1) % Immature Gran % (Auto) 0.0 L (0.001-0.429) % Nucleat RBC Rel Count 0.0 (0.00-0.2) % Eos # (Auto) 0.07 (0.04-0.36) x10^3/uL Immature Gran # (Auto) 0.00 L (0.001-0.031) x10^3u/L Absolute Lymphs (auto) 1.02 L (1.18-3.74) x10^3/uL Absolute Monos (auto) 0.54 (0.24-0.86) x10^3/uL Absolute Nucleated RBC 0.00 (0.00-0.012) x10^3u/L Lymphocytes % 22.8 (19.3-51.7) % Monocytes % 12.1 (4.7-12.5) % Eosinophils % 1.6 (0.7-5.8) % Basophils % 0.4 (0.1-1.2) % Absolute Granulocytes 2.82 (1.56-6.13) x10^3/uL Basophils # 0.02 (0.01-0.08) x10^3/uL PT (9.4-12.5) SECONDS INR (0.8-3.0) Sodium (135-145) mmol/L Potassium (3.5-5.1) mmol/L Chloride (98-107) mmol/L Carbon Dioxide (22-30) mmol/L Anion Gap (5-15) MEQ/L BUN (7-17) mg/dL Creatinine (0.52-1.04) mg/dL Estimated GFR ML/MIN Glucose (74-106) mg/dL POC Glucometer 97 (74 to 106) mg/dL Hemoglobin A1c (4.5-6.0) % Calcium (8.4-10.2) mg/dL Magnesium (1.6-2.3) mg/dL Total Bilirubin (0.2-1.3) mg/dL AST (14-36) U/L ALT (0-35) U/L Alkaline Phosphatase (38-126) U/L Troponin I < 0.012 (0.000-0.033) ng/mL NT-Pro-B Natriuret Pep (<300) pg/mL Serum Total Protein (6.3-8.2) g/dL Albumin (3.5-5.0) g/dL Amylase (30-110) U/L Lipase (23-300) U/L Urine Color (Yellow) Urine Appearance (Clear) Urine pH (4.6-8.0) Ur Specific Mize (1.005-1.030) Urine Protein (Negative) Urine Glucose (UA) (Negative) mg/dL Urine Ketones (Negative) Urine Blood (Negative) Urine Nitrite (Negative) Urine Bilirubin (Negative) Urine Urobilinogen (0.2) mg/dL Ur Leukocyte Esterase (Negative) U Hyaline Cast (Auto) (0-2) /LPF Urine Microscopic RBC (0-5) /HPF Urine Microscopic WBC (0-5) /HPF Ur Epithelial Cells (None Seen) /HPF Urine Bacteria (None Seen) /HPF Urine Culture Reflexed (NO) Monoscreen (NEGATIVE) Influenza Type A Ag (NEGATIVE) Influenza Type B Ag (NEGATIVE) RSV (PCR) (NEGATIVE) SARS-CoV-2 (PCR) (NEGATIVE) 06/19/24 06/19/24 Range/Units 07:50 08:12 WBC (3.98-10.04) x10^3/uL RBC (3.93-5.22) x10^6/uL Hgb (11.2-15.7) g/dL Hct (34.1-44.9) % MCV (79.4-94.8) fL MCH (25.6-32.2) pg MCHC (32.2-35.5) g/dL RDW (11.7-14.4) % Plt Count (182-369) x10^3/uL MPV (9.4-12.3) fL Gran % (34.0-71.1) % Immature Gran % (Auto) (0.001-0.429) % Nucleat RBC Rel Count (0.00-0.2) % Eos # (Auto) (0.04-0.36) x10^3/uL Immature Gran # (Auto) (0.001-0.031) x10^3u/L Absolute Lymphs (auto) (1.18-3.74) x10^3/uL Absolute Monos (auto) (0.24-0.86) x10^3/uL Absolute Nucleated RBC (0.00-0.012) x10^3u/L Lymphocytes % (19.3-51.7) % Monocytes % (4.7-12.5) % Eosinophils % (0.7-5.8) % Basophils % (0.1-1.2) % Absolute Granulocytes (1.56-6.13) x10^3/uL Basophils # (0.01-0.08) x10^3/uL PT (9.4-12.5) SECONDS INR (0.8-3.0) Sodium 137 (135-145) mmol/L Potassium 3.6 (3.5-5.1) mmol/L Chloride 103 (98-107) mmol/L Carbon Dioxide 30 (22-30) mmol/L Anion Gap 8.5 (5-15) MEQ/L BUN 12 (7-17) mg/dL Creatinine 0.93 (0.52-1.04) mg/dL Estimated GFR 62.9 ML/MIN Glucose 98 (74-106) mg/dL POC Glucometer 90 (74 to 106) mg/dL Hemoglobin A1c (4.5-6.0) % Calcium 8.6 (8.4-10.2) mg/dL Magnesium (1.6-2.3) mg/dL Total Bilirubin 0.60 (0.2-1.3) mg/dL AST 46 H (14-36) U/L ALT 40 H (0-35) U/L Alkaline Phosphatase 69 (38-126) U/L Troponin I (0.000-0.033) ng/mL NT-Pro-B Natriuret Pep 581 (<300) pg/mL Serum Total Protein 6.3 (6.3-8.2) g/dL Albumin 4.0 (3.5-5.0) g/dL Amylase (30-110) U/L Lipase (23-300) U/L Urine Color (Yellow) Urine Appearance (Clear) Urine pH (4.6-8.0) Ur Specific Mize (1.005-1.030) Urine Protein (Negative) Urine Glucose (UA) (Negative) mg/dL Urine Ketones (Negative) Urine Blood (Negative) Urine Nitrite (Negative) Urine Bilirubin (Negative) Urine Urobilinogen (0.2) mg/dL Ur Leukocyte Esterase (Negative) U Hyaline Cast (Auto) (0-2) /LPF Urine Microscopic RBC (0-5) /HPF Urine Microscopic WBC (0-5) /HPF Ur Epithelial Cells (None Seen) /HPF Urine Bacteria (None Seen) /HPF Urine Culture Reflexed (NO) Monoscreen (NEGATIVE) Influenza Type A Ag (NEGATIVE) Influenza Type B Ag (NEGATIVE) RSV (PCR) (NEGATIVE) SARS-CoV-2 (PCR) (NEGATIVE) Accuchecks Date 06/19/24 Date 06/18/24 Time 08:50 - Radiology Impressions Radiology Exams & Impressions: Radiology Procedures Category Date Time Status CHEST 1 VIEW (PORTABLE) Stat Exams 06/18/24 13:05 Completed LUMBAR LIMITED (2 OR 3 VIEWS) Stat Exams 06/18/24 17:25 Completed SACROILIAC JOINTS (MIN 3 VIEW Stat Exams 06/18/24 17:25 Completed - Other Procedures and Tests Respiratory Therapy 06/18/24 16:47 EKG REPEAT IN AM Oxygen Nasal Cannula 2 lpm 06/18/24 17:25 Flutter Therapy UD Incentive Spirometry UD 06/18/24 18:39 Respiratory Therapy Assessment DAILY Telemedicine Encounter - Telemedicine Encounter Telemedicine Encounter: "The entirety of this encounter was performed via Telemedicine" This visit was performed using real-time audio and video connection between my location and thepatients locationwith the assistance of a surrogateat the patients location. Written or verbal consent was obtained from the patient/guardian to perform this visit using[employer]ruptor Beamtelemedicine technology. Any patient questions regarding the telemedicine interaction were answered. JOSE Encounter - JOSE Encounter Attestation JOSE Encounter Attestation: "RobFernandezYANNICK SHEARER on 06/18/2024 andhavediscussed pertinent aspects of their care with Bessie agree with the history, physical exam (any modifications based on my personal exam will be noted below), assessment, and plan as outlined in original note. Please see immediately below for my summary of findings and additional assessment and plan along with any meaningful corrections/explanations to the Subjective/Objective portions of the JOSE note will be noted." My portion of the encounter took place via telemedicine. Patient presenting with cough, hypoxia, RLL infiltrate. Possible pneumonia and will treat it as such. She does have lower extremity edema as well and is on lasix at home. Give lasix 40 mg IV x 1
[2024-06-18] MEDS ORDERED: HUMALOG SQ PRN (17:25)
[2024-06-18] MEDS ORDERED: VENTOLIN COMMON CANISTER IH PRN (17:56)
[2024-06-18] MEDS ORDERED: Neurontin PO PRN (17:56)
[2024-06-18] MEDS ORDERED: ANTIVERT 25 MG PO PRN (17:56)
[2024-06-18] MEDS ORDERED: NON-FORMULARY ITEM (Cyclobenzaprine Hcl [Cyclobenzaprine Hcl] 5 MG Tablet) PO PRN (17:56)
[2024-06-18] MEDS ORDERED: [UNRECOGNIZED DRUG - OTHER] OP SCH (18:00)
[2024-06-18] MEDS ORDERED: TRIMETHOPRIM OP SCH (18:00)
[2024-06-18] MEDS ORDERED: POLYMYXIN B SULF OP SCH (18:00)
[2024-06-18] MEDS ORDERED: MAG-OX 400 PO SCH (18:00)
--- NOTE | 2024-06-18 20:24 | XRAY ---
Indication: Short of breath. Comparison: January 30, 2021 Portable apical lordotic chest demonstrates new CT proven right upper lobe calcified granuloma. Also new mild right infrahilar infiltrate/atelectasis. Remaining heart and lungs unremarkable. Bony thorax intact again with osteopenia and right shoulder arthroplasty.
[2024-06-18] MEDS: Robitussin AC Syrup Unit Dose Cup PO PRN (20:25)
--- NOTE | 2024-06-18 20:58 | XRAY ---
CLINICAL HISTORY: back pain COMPARISON: No prior studies are available for comparison. TECHNIQUE: X-ray images of the sacroiliac joints were obtained in anteroposterior (AP), both obliques and axial projections. FINDINGS: Alignment: Lumbar spine alignment is normal. No abnormal curvature, such as scoliosis or lordosis. Facet joints and sacroiliac joints appear normal. Vertebral Bodies: Vertebral bodies are of normal height and morphology. No evidence of fractures, compression deformities, or significant osseous lesions. Sacroiliac joints: Bilateral mild arthritic changes. IMPRESSION: Bilateral mild arthritic changes of the sacroiliac joints. Disclaimer: A subtle bone abnormality or fracture may not be readily apparent on X-rays, thus clinical correlation and further imaging including follow-up CT, MRI, or follow-up X-rays are advised as needed. Electronically Signed by: Mamadou Duarte MD. (06/18/2024 20:54:42 EST)
--- NOTE | 2024-06-18 21:10 | XRAY ---
CLINICAL HISTORY: back pain COMPARISON: No prior studies are available for comparison. TECHNIQUE: X-ray images of the lumbosacral spine were obtained in anteroposterior (AP), lateral and spot L5-S1, projection. FINDINGS: Bone Structure: Pelvic bones, including the iliac wings, ischium, pubis, and sacrum, are normal and intact. No evidence of fractures, dislocations, or significant osseous lesions. Hip Joints: Hip joints are normal with preserved joint spaces. No evidence of hip dislocation, subluxation, or significant degenerative changes. Acetabulum: Acetabular structures appear normal and intact. Symphysis Pubis: The symphysis pubis is normal and intact. No evidence of separation or widening. Sacroiliac Joints: Bilateral arthritic changes of sacroiliac joints more on the left side. Soft Tissues: Visualized soft tissues are normal and unremarkable. No soft tissue swelling, calcifications, or masses. Additional Findings: Mural calcifications of the abdominal aorta. IMPRESSION: 1. Narrowing of L4-5 and L5-S1 disc spaces. 2. Lumbar spondylosis. Bilateral sacroiliitis is more on the left side. Disclaimer: A subtle bone abnormality or fracture may not be readily apparent on X-rays, thus clinical correlation and further imaging including follow-up CT, MRI, or follow-up X-rays are advised as needed. Electronically Signed by: Mamadou Duarte MD. (06/18/2024 21:05:56 EST)
[2024-06-18] MEDS: Coreg 3.125 MG PO SCH (21:32)
[2024-06-18] MEDS: ELIQUIS 2.5 MG TABLET PO SCH (21:32)
[2024-06-18] MEDS ORDERED: NON-FORMULARY ITEM (Apixaban*** [Eliquis 5 Mg Tablet***] 5 MG Tablet) PO SCH (22:00)
[2024-06-18] MEDS: TYLENOL 325 MG PO PRN (22:23)
[2024-06-19] MEDS: NORCO 5/325 MG PO PRN ×2 (02:40→10:01)
--- NOTE | 2024-06-19 05:27 | PCM.NOTE ---
Date and Time: 06/19/24524 Subjective Assessment: is a 79 year old female with a pmhx of DM, fibromyalgia, OA, HLD, arrhythmia, HTN, COPD, diverticulosis, and depression presented to ED 06/18/24 with complaints of [employer] cough, shortness of breath, body aches, nausea, diarrhea, headache, nasal congestion and generalized weakness since yesterday. No fever. Unable to tolerate diet. Additionally reports that she fell three weeks ago and has low back pain lumbar/sacral region. She describes the pain as intermittent and sharp. Aggravated with movement. No relieving factors. She rates the pain 9/10 on numerical pain scale. Denies cp, abdominal pain, DIALLO, dizziness, or vomiting. She is on RA during interview and states diarrhea has now resolved. Upon arrival to ED vitals stable. Spo2 on RA 88 to 89% on room air. She was placed on 2 L of oxygen and increased to 98%. Desaturation to 90% with ambulation. CXR per ED read cardiomegaly and possible right base infiltrate vs fluid. Lab findings with mildly elevated LFTs otherwise unremarkable. Respiratory viral panel negative. Admit for acute resp failure with hypoxia and pneumonia. Objective Data Vital Signs: Vital Signs - 24 hr Temp Pulse Resp BP BP Pulse Ox 06/19/24 00:00 97.9 F 68 18 116/56 91 L 06/18/24 19:50 97.7 F 64 20 137/61 93 L 06/18/24 18:39 68 16 93 L 06/18/24 17:10 96 06/18/24 16:49 96.3 F 66 18 171/72 96 06/18/24 16:31 160/57 06/18/24 16:00 68 18 109/76 98 06/18/24 15:35 95 06/18/24 15:30 157/55 97 06/18/24 15:00 144/48 98 06/18/24 14:37 62 131/84 96 06/18/24 14:34 171/89 06/18/24 14:33 158/80 06/18/24 14:32 167/73 06/18/24 14:01 68 22 147/56 94 L 06/18/24 13:30 60 20 111/96 92 L 06/18/24 13:00 128/44 06/18/24 12:30 142/50 88 L 06/18/24 12:00 133/46 93 L 06/18/24 11:30 159/54 89 L 06/18/24 11:23 97.4 F 62 146/46 95 Pain Assessment - Last Documented Pain Intensity 7 Pain Scale Used [facility] Intake and Output: Intake & Output 06/16/24 06/17/24 06/18/24 06/19/24 11:59 11:59 11:59 11:59 Intake Total 750 Balance 750 Weight 117.934 kg 117.7 kg Lab Results: Lab Results-Last 24 Hours 06/18/24 06/18/24 06/18/24 Range/Units 11:34 11:45 11:45 WBC 5.4 (3.98-10.04) x10^3/uL RBC 5.01 (3.93-5.22) x10^6/uL Hgb 13.4 (11.2-15.7) g/dL Hct 42.8 (34.1-44.9) % MCV 85.4 (79.4-94.8) fL MCH 26.7 (25.6-32.2) pg MCHC 31.3 L (32.2-35.5) g/dL RDW 13.2 (11.7-14.4) % Plt Count 216 (182-369) x10^3/uL MPV 10.4 (9.4-12.3) fL Gran % 65.0 (34.0-71.1) % Immature Gran % (Auto) 0.4 (0.001-0.429) % Nucleat RBC Rel Count 0.0 (0.00-0.2) % Eos # (Auto) 0.06 (0.04-0.36) x10^3/uL Immature Gran # (Auto) 0.02 (0.001-0.031) x10^3u/L Absolute Lymphs (auto) 1.12 L (1.18-3.74) x10^3/uL Absolute Monos (auto) 0.66 (0.24-0.86) x10^3/uL Absolute Nucleated RBC 0.00 (0.00-0.012) x10^3u/L Lymphocytes % 20.7 (19.3-51.7) % Monocytes % 12.2 (4.7-12.5) % Eosinophils % 1.1 (0.7-5.8) % Basophils % 0.6 (0.1-1.2) % Absolute Granulocytes 3.52 (1.56-6.13) x10^3/uL Basophils # 0.03 (0.01-0.08) x10^3/uL PT 11.2 (9.4-12.5) SECONDS INR 1.03 (0.8-3.0) Sodium 137 (135-145) mmol/L Potassium 4.3 (3.5-5.1) mmol/L Chloride 104 (98-107) mmol/L Carbon Dioxide 23 (22-30) mmol/L Anion Gap 13.5 (5-15) MEQ/L BUN 13 (7-17) mg/dL Creatinine 0.81 (0.52-1.04) mg/dL Estimated GFR 74.3 ML/MIN Glucose 122 H (74-106) mg/dL POC Glucometer (74 to 106) mg/dL Hemoglobin A1c (4.5-6.0) % Calcium 9.4 (8.4-10.2) mg/dL Magnesium 2.1 (1.6-2.3) mg/dL Total Bilirubin 0.70 (0.2-1.3) mg/dL AST 45 H (14-36) U/L ALT 39 H (0-35) U/L Alkaline Phosphatase 68 (38-126) U/L Troponin I (0.000-0.033) ng/mL NT-Pro-B Natriuret Pep (<300) pg/mL Serum Total Protein 6.5 (6.3-8.2) g/dL Albumin 4.4 (3.5-5.0) g/dL Amylase 49 (30-110) U/L Lipase 141 (23-300) U/L Urine Color (Yellow) Urine Appearance (Clear) Urine pH (4.6-8.0) Ur Specific Hulen (1.005-1.030) Urine Protein (Negative) Urine Glucose (UA) (Negative) mg/dL Urine Ketones (Negative) Urine Blood (Negative) Urine Nitrite (Negative) Urine Bilirubin (Negative) Urine Urobilinogen (0.2) mg/dL Ur Leukocyte Esterase (Negative) U Hyaline Cast (Auto) (0-2) /LPF Urine Microscopic RBC (0-5) /HPF Urine Microscopic WBC (0-5) /HPF Ur Epithelial Cells (None Seen) /HPF Urine Bacteria (None Seen) /HPF Urine Culture Reflexed (NO) Monoscreen (NEGATIVE) Influenza Type A Ag (NEGATIVE) Influenza Type B Ag (NEGATIVE) RSV (PCR) (NEGATIVE) SARS-CoV-2 (PCR) (NEGATIVE) 06/18/24 06/18/24 06/18/24 Range/Units 11:45 11:45 11:45 WBC (3.98-10.04) x10^3/uL RBC (3.93-5.22) x10^6/uL Hgb (11.2-15.7) g/dL Hct (34.1-44.9) % MCV (79.4-94.8) fL MCH (25.6-32.2) pg MCHC (32.2-35.5) g/dL RDW (11.7-14.4) % Plt Count (182-369) x10^3/uL MPV (9.4-12.3) fL Gran % (34.0-71.1) % Immature Gran % (Auto) (0.001-0.429) % Nucleat RBC Rel Count (0.00-0.2) % Eos # (Auto) (0.04-0.36) x10^3/uL Immature Gran # (Auto) (0.001-0.031) x10^3u/L Absolute Lymphs (auto) (1.18-3.74) x10^3/uL Absolute Monos (auto) (0.24-0.86) x10^3/uL Absolute Nucleated RBC (0.00-0.012) x10^3u/L Lymphocytes % (19.3-51.7) % Monocytes % (4.7-12.5) % Eosinophils % (0.7-5.8) % Basophils % (0.1-1.2) % Absolute Granulocytes (1.56-6.13) x10^3/uL Basophils # (0.01-0.08) x10^3/uL PT (9.4-12.5) SECONDS INR (0.8-3.0) Sodium (135-145) mmol/L Potassium (3.5-5.1) mmol/L Chloride (98-107) mmol/L Carbon Dioxide (22-30) mmol/L Anion Gap (5-15) MEQ/L BUN (7-17) mg/dL Creatinine (0.52-1.04) mg/dL Estimated GFR ML/MIN Glucose (74-106) mg/dL POC Glucometer (74 to 106) mg/dL Hemoglobin A1c 5.33 (4.5-6.0) % Calcium (8.4-10.2) mg/dL Magnesium (1.6-2.3) mg/dL Total Bilirubin (0.2-1.3) mg/dL AST (14-36) U/L ALT (0-35) U/L Alkaline Phosphatase (38-126) U/L Troponin I < 0.012 (0.000-0.033) ng/mL NT-Pro-B Natriuret Pep 468 (<300) pg/mL Serum Total Protein (6.3-8.2) g/dL Albumin (3.5-5.0) g/dL Amylase (30-110) U/L Lipase (23-300) U/L Urine Color (Yellow) Urine Appearance (Clear) Urine pH (4.6-8.0) Ur Specific H[place]en (1.005-1.030) Urine Protein (Negative) Urine Glucose (UA) (Negative) mg/dL Urine Ketones (Negative) Urine Blood (Negative) Urine Nitrite (Negative) Urine Bilirubin (Negative) Urine Urobilinogen (0.2) mg/dL Ur Leukocyte Esterase (Negative) U Hyaline Cast (Auto) (0-2) /LPF Urine Microscopic RBC (0-5) /HPF Urine Microscopic WBC (0-5) /HPF Ur Epithelial Cells (None Seen) /HPF Urine Bacteria (None Seen) /HPF Urine Culture Reflexed (NO) Monoscreen NEGATIVE (NEGATIVE) Influenza Type A Ag (NEGATIVE) Influenza Type B Ag (NEGATIVE) RSV (PCR) (NEGATIVE) SARS-CoV-2 (PCR) (NEGATIVE) 06/18/24 06/18/24 06/18/24 Range/Units 11:57 12:00 16:00 WBC (3.98-10.04) x10^3/uL RBC (3.93-5.22) x10^6/uL Hgb (11.2-15.7) g/dL Hct (34.1-44.9) % MCV (79.4-94.8) fL MCH (25.6-32.2) pg MCHC (32.2-35.5) g/dL RDW (11.7-14.4) % Plt Count (182-369) x10^3/uL MPV (9.4-12.3) fL Gran % (34.0-71.1) % Immature Gran % (Auto) (0.001-0.429) % Nucleat RBC Rel Count (0.00-0.2) % Eos # (Auto) (0.04-0.36) x10^3/uL Immature Gran # (Auto) (0.001-0.031) x10^3u/L Absolute Lymphs (auto) (1.18-3.74) x10^3/uL Absolute Monos (auto) (0.24-0.86) x10^3/uL Absolute Nucleated RBC (0.00-0.012) x10^3u/L Lymphocytes % (19.3-51.7) % Monocytes % (4.7-12.5) % Eosinophils % (0.7-5.8) % Basophils % (0.1-1.2) % Absolute Granulocytes (1.56-6.13) x10^3/uL Basophils # (0.01-0.08) x10^3/uL PT (9.4-12.5) SECONDS INR (0.8-3.0) Sodium (135-145) mmol/L Potassium (3.5-5.1) mmol/L Chloride (98-107) mmol/L Carbon Dioxide (22-30) mmol/L Anion Gap (5-15) MEQ/L BUN (7-17) mg/dL Creatinine (0.52-1.04) mg/dL Estimated GFR ML/MIN Glucose (74-106) mg/dL POC Glucometer (74 to 106) mg/dL Hemoglobin A1c (4.5-6.0) % Calcium (8.4-10.2) mg/dL Magnesium (1.6-2.3) mg/dL Total Bilirubin (0.2-1.3) mg/dL AST (14-36) U/L ALT (0-35) U/L Alkaline Phosphatase (38-126) U/L Troponin I < 0.012 (0.000-0.033) ng/mL NT-Pro-B Natriuret Pep (<300) pg/mL Serum Total Protein (6.3-8.2) g/dL Albumin (3.5-5.0) g/dL Amylase (30-110) U/L Lipase (23-300) U/L Urine Color Yellow (Yellow) Urine Appearance Clear (Clear) Urine pH 7.0 (4.6-8.0) Ur Specific Hulen 1.010 (1.005-1.030) Urine Protein Negative (Negative) Urine Glucose (UA) Negative (Negative) mg/dL Urine Ketones Negative (Negative) Urine Blood Negative (Negative) Urine Nitrite Negative (Negative) Urine Bilirubin Negative (Negative) Urine Urobilinogen 0.2 (0.2) mg/dL Ur Leukocyte Esterase Negative (Negative) U Hyaline Cast (Auto) NONE SEEN (0-2) /LPF Urine Microscopic RBC 0-2 (0-5) /HPF Urine Microscopic WBC 0-2 (0-5) /HPF Ur Epithelial Cells None Seen (None Seen) /HPF Urine Bacteria None Seen (None Seen) /HPF Urine Culture Reflexed NO (NO) Monoscreen (NEGATIVE) Influenza Type A Ag NEGATIVE (NEGATIVE) Influenza Type B Ag NEGATIVE (NEGATIVE) RSV (PCR) NEGATIVE (NEGATIVE) SARS-CoV-2 (PCR) NEGATIVE (NEGATIVE) 06/18/24 06/18/24 Range/Units 19:00 22:20 WBC (3.98-10.04) x10^3/uL RBC (3.93-5.22) x10^6/uL Hgb (11.2-15.7) g/dL Hct (34.1-44.9) % MCV (79.4-94.8) fL MCH (25.6-32.2) pg MCHC (32.2-35.5) g/dL RDW (11.7-14.4) % Plt Count (182-369) x10^3/uL MPV (9.4-12.3) fL Gran % (34.0-71.1) % Immature Gran % (Auto) (0.001-0.429) % Nucleat RBC Rel Count (0.00-0.2) % Eos # (Auto) (0.04-0.36) x10^3/uL Immature Gran # (Auto) (0.001-0.031) x10^3u/L Absolute Lymphs (auto) (1.18-3.74) x10^3/uL Absolute Monos (auto) (0.24-0.86) x10^3/uL Absolute Nucleated RBC (0.00-0.012) x10^3u/L Lymphocytes % (19.3-51.7) % Monocytes % (4.7-12.5) % Eosinophils % (0.7-5.8) % Basophils % (0.1-1.2) % Absolute Granulocytes (1.56-6.13) x10^3/uL Basophils # (0.01-0.08) x10^3/uL PT (9.4-12.5) SECONDS INR (0.8-3.0) Sodium (135-145) mmol/L Potassium (3.5-5.1) mmol/L Chloride (98-107) mmol/L Carbon Dioxide (22-30) mmol/L Anion Gap (5-15) MEQ/L BUN (7-17) mg/dL Creatinine (0.52-1.04) mg/dL Estimated GFR ML/MIN Glucose (74-106) mg/dL POC Glucometer 97 (74 to 106) mg/dL Hemoglobin A1c (4.5-6.0) % Calcium (8.4-10.2) mg/dL Magnesium (1.6-2.3) mg/dL Total Bilirubin (0.2-1.3) mg/dL AST (14-36) U/L ALT (0-35) U/L Alkaline Phosphatase (38-126) U/L Troponin I < 0.012 (0.000-0.033) ng/mL NT-Pro-B Natriuret Pep (<300) pg/mL Serum Total Protein (6.3-8.2) g/dL Albumin (3.5-5.0) g/dL Amylase (30-110) U/L Lipase (23-300) U/L Urine Color (Yellow) Urine Appearance (Clear) Urine pH (4.6-8.0) Ur Specific Hulen (1.005-1.030) Urine Protein (Negative) Urine Glucose (UA) (Negative) mg/dL Urine Ketones (Negative) Urine Blood (Negative) Urine Nitrite (Negative) Urine Bilirubin (Negative) Urine Urobilinogen (0.2) mg/dL Ur Leukocyte Esterase (Negative) U Hyaline Cast (Auto) (0-2) /LPF Urine Microscopic RBC (0-5) /HPF Urine Microscopic WBC (0-5) /HPF Ur Epithelial Cells (None Seen) /HPF Urine Bacteria (None Seen) /HPF Urine Culture Reflexed (NO) Monoscreen (NEGATIVE) Influenza Type A Ag (NEGATIVE) Influenza Type B Ag (NEGATIVE) RSV (PCR) (NEGATIVE) SARS-CoV-2 (PCR) (NEGATIVE) Radiology Exams: Radiology Procedures Category Date Time Status CHEST 1 VIEW (PORTABLE) Stat Exams 06/18/24 13:05 Completed LUMBAR LIMITED (2 OR 3 VIEWS) Stat Exams 06/18/24 17:25 Completed SACROILIAC JOINTS (MIN 3 VIEW Stat Exams 06/18/24 17:25 Completed Assessment/Plan (1) Acute respiratory failure with hypoxia Current Visit: Yes Status: Acute Assessment & Plan: -Most likely secondary to pneumonia -?effusion -Supplemental oxygen with goal spo2 > 92% - RA at baseline -Currently on RA -CXR pending radiology read - per ED read infiltrates vs fluid -procal -respiratory panel negative -Flutter/IS -Cough syrup -Ceftriaxone/azithromycin -Lasix 40mg IV Code(s): J96.01 - ACUTE RESPIRATORY FAILURE WITH HYPOXIA (2) COPD exacerbation Current Visit: Yes Status: Acute Assessment & Plan: -See ARF Code(s): J44.1 - CHRONIC OBSTRUCTIVE PULMONARY DISEASE W (ACUTE) EXACERBATION (3) Infiltrate noted on imaging study Current Visit: Yes Status: Acute Assessment & Plan: -See ARF Code(s): R93.89 - ABNORMAL FINDINGS ON DX IMAGING OF OTH BODY STRUCTURES (4) HTN (hypertension) Current Visit: Yes Status: Acute Assessment & Plan: -continue home meds Code(s): I10 - ESSENTIAL (PRIMARY) HYPERTENSION (5) HLD (hyperlipidemia) Current Visit: Yes Status: Acute Assessment & Plan: -continue statin Code(s): E78.5 - HYPERLIPIDEMIA, UNSPECIFIED (6) Generalized weakness Current Visit: Yes Status: Acute Assessment & Plan: -most likely secondary to pneumonia -PT/OT when available Code(s): R53.1 - WEAKNESS (7) Nausea Current Visit: Yes Status: Acute Assessment & Plan: -anti-emetics -no vomiting Code(s): R11.0 - NAUSEA (8) Back pain Current Visit: Yes Status: Acute Assessment & Plan: -Reported fall three weeks ago with no follow up -Xray of lumbar/sacral spine -[place] for pain relief -home dosing VTE: Eliquis Dispo: 1-2 days Code status: Full code Code(s): M54.9 - DORSALGIA, UNSPECIFIED Code(s): J96.01 - ACUTE RESPIRATORY FAILURE WITH HYPOXIA (2) COPD exacerbation Current Visit: Yes Status: Acute Code(s): J44.1 - CHRONIC OBSTRUCTIVE PULMONARY DISEASE W (ACUTE) EXACERBATION (3) Infiltrate noted on imaging study Current Visit: Yes Status: Acute Code(s): R93.89 - ABNORMAL FINDINGS ON DX IMAGING OF OTH BODY STRUCTURES (4) HTN (hypertension) Current Visit: Yes Status: Acute Code(s): I10 - ESSENTIAL (PRIMARY) HYPERTENSION (5) HLD (hyperlipidemia) Current Visit: Yes Status: Acute Code(s): E78.5 - HYPERLIPIDEMIA, UNSPECIFIED (6) Generalized weakness Current Visit: Yes Status: Acute Code(s): R53.1 - WEAKNESS (7) Nausea Current Visit: Yes Status: Acute Code(s): R11.0 - NAUSEA (8) Back pain Current Visit: Yes Status: Acute Code(s): M54.9 - DORSALGIA, UNSPECIFIED
[2024-06-19 08:00] LABS: Absolute Neutrophil Ct (ANC) 2.82 x10^3/uL (1.56-6.13); BASOPHIL % 0.4 % (0.1-1.2); Basophil (Absolute #) 0.02 x10^3/uL (0.01-0.08); Eosinophil % 1.6 % (0.7-5.8); Eosinophil (Absolute #) 0.07 x10^3/uL (0.04-0.36); Hematocrit 40.6 % (34.1-44.9); Hemoglobin 12.3 g/dL (11.2-15.7); Lymphocyte (Absolute #) 1.02 x10^3/uL (1.18-3.74); Lymphocytes % 22.8 % (19.3-51.7); Mean Cell Volume 88.1 fL (79.4-94.8); Mean Corpuscular Hemoglobin 26.7 pg (25.6-32.2); Mean Corpuscular Hgb Concent. 30.3 g/dL (32.2-35.5); Mean Platelet Volume 10.5 fL (9.4-12.3); Monocyte (Absolute #) 0.54 x10^3/uL (0.24-0.86); Monocytes % 12.1 % (4.7-12.5); Neutrophil % 63.1 % (34.0-71.1); Platelet Count 185 x10^3/uL (182-369); Red Blood Count 4.61 x10^6/uL (3.93-5.22); Red Cell Distribution Width 13.5 % (11.7-14.4); White Blood Count 4.5 x10^3/uL (3.98-10.04)
[2024-06-19] MEDS ORDERED: MEDICATION INTERVENTION MC SCH ×2 (08:00)
[2024-06-19 08:08] VITALS: O2SAT 90
[2024-06-19 08:46] LABS: ANION GAP 8.5 MEQ/L (5-15); BILIRUBIN,TOTAL 0.6 mg/dL (0.2-1.3); Calcium 8.6 mg/dL (8.4-10.2); Creatinine 1 0.93 mg/dL (0.52-1.04); EST GLOMERULAR FILTRATION RATE 62.9 ML/MIN; Potassium 3.6 mmol/L (3.5-5.1); Total Protein 6.3 g/dL (6.3-8.2)
[2024-06-19] MEDS: ROCEPHIN 1 GM / 100 ML NaCl 1 GM/100 ML IVPB IV SCH (09:23)
[2024-06-19] MEDS: Zithromax 500 MG/ 250 ML NaCl Premix 500 MG/250 ML IVPB IV SCH (09:24)
[2024-06-19] MEDS: Vitamin B-12 500 MCG PO SCH (09:24)
[2024-06-19] MEDS: Klor Con PO SCH (09:24)
[2024-06-19] MEDS: CLARITIN 10 MG PO SCH (09:25)
[2024-06-19] MEDS: Zestril 5 MG PO SCH (09:25)
[2024-06-19] MEDS: ZYLOPRIM 300 MG PO SCH (09:26)
[2024-06-19] MEDS: Lexapro PO SCH (09:26)
[2024-06-19] MEDS: Coreg PO SCH (09:26)
[2024-06-19] MEDS: Zetia 10 MG PO SCH (09:27)
[2024-06-19] MEDS: Flonase NASAL NS SCH (09:28)
[2024-06-19] MEDS: Lasix 40 MG/4 ML IV SCH (09:28)
[2024-06-19] MEDS ORDERED: NON-FORMULARY ITEM (Cholecalciferol (Vitamin D3) [Vitamin D3] 125 MCG Capsule) PO SCH (10:00)
[2024-06-19] MEDS: Zofran 4 MG/2 ML VIAL IV PRN (10:26)
--- NOTE | 2024-06-19 12:28 | PCM.DS ---
Discharge Summary Date of Admission: 06/18/24 16:44 Date of Discharge: 06/19/24 Admitting Physician: CAROL LE MD Primary Care Provider: DELTA RICHARDS DO Allergies Allergies pumpkin Adverse Reaction (Verified 06/18/24 11:31) Hospital Summary - Hospital Course Hospital Course: is a 79 year old female with a pmhx of DM, fibromyalgia, OA, HLD, arrhythmia, HTN, COPD, diverticulosis, and depression presented to ED 06/18/24 with complaints of [employer] cough, shortness of breath, body aches, nausea, diarrhea, headache, nasal congestion and generalized weakness since yesterday. No fever. Unable to tolerate diet. Additionally reports that she fell three weeks ago and has low back pain lumbar/sacral region. She describes the pain as intermittent and sharp. Aggravated with movement. No relieving factors. She rates the pain 9/10 on numerical pain scale. Denies cp, abdominal pain, DIALLO, dizziness, or vomiting. She is on RA during interview and states diarrhea has now resolved. Upon arrival to ED vitals stable. Spo2 on RA 88 to 89% on room air. She was placed on 2 L of oxygen and increased to 98%. Desaturation to 90% with ambulat ion. CXR per ED read cardiomegaly and possible right base infiltrate vs fluid. Lab findings with mildly elevated LFTs otherwise unremarkable. Respiratory viral panel negative. Admit for acute resp failure with hypoxia and pneumonia. Dyspnea has improved. Will have RT walk patient. Patient on RA. Will see if she needs home oxygen and set up. Will discharge home on cefuroxime and prednisone. Discharge Note New Diagnosis: pneumonia New Medications:cefuroxime/prednisone Follow Up: pcp Latest Assessment & Plan (1) Acute respiratory failure with hypoxia Current Visit: Yes Status: Acute Assessment & Plan: -Most likely secondary to pneumonia -?effusion -Supplemental oxygen with goal spo2 > 92% - RA at baseline -Currently on RA -CXR pending radiology read - per ED read infiltrates vs fluid -procal -respiratory panel negative -Flutter/IS -Cough syrup -Ceftriaxone/azithromycin -Lasix 40mg IV 06/19: -on RA -continue cefuroxime and prednisone on discharge -RT to evaluate for home oxygen Code(s): J96.01 - ACUTE RESPIRATORY FAILURE WITH HYPOXIA (2) COPD exacerbation Current Visit: Yes Status: Acute Assessment & Plan: -See ARF Code(s): J44.1 - CHRONIC OBSTRUCTIVE PULMONARY DISEASE W (ACUTE) EXACERBATION (3) Infiltrate noted on imaging study Current Visit: Yes Status: Acute Assessment & Plan: -See ARF Code(s): R93.89 - ABNORMAL FINDINGS ON DX IMAGING OF OTH BODY STRUCTURES (4) HTN (hypertension) Current Visit: Yes Status: Acute Assessment & Plan: -continue home meds Code(s): I10 - ESSENTIAL (PRIMARY) HYPERTENSION (5) HLD (hyperlipidemia) Current Visit: Yes Status: Acute Assessment & Plan: -continue statin Code(s): E78.5 - HYPERLIPIDEMIA, UNSPECIFIED (6) Generalized weakness Current Visit: Yes Status: Acute Assessment & Plan: -most likely secondary to pneumonia -PT/OT when available Code(s): R53.1 - WEAKNESS (7) Nausea Current Visit: Yes Status: Acute Assessment & Plan: -anti-emetics -no vomiting 06/19: -Resolved Code(s): R11.0 - NAUSEA (8) Back pain Current Visit: Yes Status: Acute Assessment & Plan: -Reported fall three weeks ago with no follow up -Xray of lumbar/sacral spine -Dailey for pain relief -home dosing 06/19: -Xray L/S negative for acute findings I spent 35 minutes [id number] with the patient on the day of discharge performing discharge exam, discussing hospital stay and discharge instructions with patient and caregivers, preparation of discharge records, prescriptions & referral forms and addressing any questions/concerns the patient had as documented above. - Vitals & Intake/Output Vital Signs: Vital Signs Temperature 97.5 F 06/19/24 08:00 Pulse Rate 66 06/19/24 08:00 Respiratory Rate 13 06/19/24 08:00 Blood Pressure 130/59 06/19/24 08:00 O2 Sat by Pulse Oximetry 90 L 06/19/24 08:00 Intake & Output: Intake & Output 06/17/24 06/18/24 06/19/24 06/20/24 11:59 11:59 11:59 11:59 Intake Total 1386 Balance 1386 Weight 117.934 kg 118.7 kg - Lab Result Diagrams: 06/19/24 07:50 06/19/24 07:50 Lab Results-Last 24 Hrs: Lab Results-Last 24 Hours 06/18/24 06/18/24 06/18/24 Range/Units 11:45 11:45 11:45 WBC (3.98-10.04) x10^3/uL RBC (3.93-5.22) x10^6/uL Hgb (11.2-15.7) g/dL Hct (34.1-44.9) % MCV (79.4-94.8) fL MCH (25.6-32.2) pg MCHC (32.2-35.5) g/dL RDW (11.7-14.4) % Plt Count (182-369) x10^3/uL MPV (9.4-12.3) fL Gran % (34.0-71.1) % Immature Gran % (Auto) (0.001-0.429) % Nucleat RBC Rel Count (0.00-0.2) % Eos # (Auto) (0.04-0.36) x10^3/uL Immature Gran # (Auto) (0.001-0.031) x10^3u/L Absolute Lymphs (auto) (1.18-3.74) x10^3/uL Absolute Monos (auto) (0.24-0.86) x10^3/uL Absolute Nucleated RBC (0.00-0.012) x10^3u/L Lymphocytes % (19.3-51.7) % Monocytes % (4.7-12.5) % Eosinophils % (0.7-5.8) % Basophils % (0.1-1.2) % Absolute Granulocytes (1.56-6.13) x10^3/uL Basophils # (0.01-0.08) x10^3/uL PT 11.2 (9.4-12.5) SECONDS INR 1.03 (0.8-3.0) Sodium 137 (135-145) mmol/L Potassium 4.3 (3.5-5.1) mmol/L Chloride 104 (98-107) mmol/L Carbon Dioxide 23 (22-30) mmol/L Anion Gap 13.5 (5-15) MEQ/L BUN 13 (7-17) mg/dL Creatinine 0.81 (0.52-1.04) mg/dL Estimated GFR 74.3 ML/MIN Glucose 122 H (74-106) mg/dL POC Glucometer (74 to 106) mg/dL Hemoglobin A1c (4.5-6.0) % Calcium 9.4 (8.4-10.2) mg/dL Magnesium 2.1 (1.6-2.3) mg/dL Total Bilirubin 0.70 (0.2-1.3) mg/dL AST 45 H (14-36) U/L ALT 39 H (0-35) U/L Alkaline Phosphatase 68 (38-126) U/L Troponin I < 0.012 (0.000-0.033) ng/mL NT-Pro-B Natriuret Pep 468 (<300) pg/mL Serum Total Protein 6.5 (6.3-8.2) g/dL Albumin 4.4 (3.5-5.0) g/dL Amylase 49 (30-110) U/L Lipase 141 (23-300) U/L Monoscreen (NEGATIVE) Influenza Type A Ag (NEGATIVE) Influenza Type B Ag (NEGATIVE) RSV (PCR) (NEGATIVE) SARS-CoV-2 (PCR) (NEGATIVE) 06/18/24 06/18/24 06/18/24 Range/Units 11:45 11:45 12:00 WBC (3.98-10.04) x10^3/uL RBC (3.93-5.22) x10^6/uL Hgb (11.2-15.7) g/dL Hct (34.1-44.9) % MCV (79.4-94.8) fL MCH (25.6-32.2) pg MCHC (32.2-35.5) g/dL RDW (11.7-14.4) % Plt Count (182-369) x10^3/uL MPV (9.4-12.3) fL Gran % (34.0-71.1) % Immature Gran % (Auto) (0.001-0.429) % Nucleat RBC Rel Count (0.00-0.2) % Eos # (Auto) (0.04-0.36) x10^3/uL Immature Gran # (Auto) (0.001-0.031) x10^3u/L Absolute Lymphs (auto) (1.18-3.74) x10^3/uL Absolute Monos (auto) (0.24-0.86) x10^3/uL Absolute Nucleated RBC (0.00-0.012) x10^3u/L Lymphocytes % (19.3-51.7) % Monocytes % (4.7-12.5) % Eosinophils % (0.7-5.8) % Basophils % (0.1-1.2) % Absolute Granulocytes (1.56-6.13) x10^3/uL Basophils # (0.01-0.08) x10^3/uL PT (9.4-12.5) SECONDS INR (0.8-3.0) Sodium (135-145) mmol/L Potassium (3.5-5.1) mmol/L Chloride (98-107) mmol/L Carbon Dioxide (22-30) mmol/L Anion Gap (5-15) MEQ/L BUN (7-17) mg/dL Creatinine (0.52-1.04) mg/dL Estimated GFR ML/MIN Glucose (74-106) mg/dL POC Glucometer (74 to 106) mg/dL Hemoglobin A1c 5.33 (4.5-6.0) % Calcium (8.4-10.2) mg/dL Magnesium (1.6-2.3) mg/dL Total Bilirubin (0.2-1.3) mg/dL AST (14-36) U/L ALT (0-35) U/L Alkaline Phosphatase (38-126) U/L Troponin I (0.000-0.033) ng/mL NT-Pro-B Natriuret Pep (<300) pg/mL Serum Total Protein (6.3-8.2) g/dL Albumin (3.5-5.0) g/dL Amylase (30-110) U/L Lipase (23-300) U/L Monoscreen NEGATIVE (NEGATIVE) Influenza Type A Ag NEGATIVE (NEGATIVE) Influenza Type B Ag NEGATIVE (NEGATIVE) RSV (PCR) NEGATIVE (NEGATIVE) SARS-CoV-2 (PCR) NEGATIVE (NEGATIVE) 06/18/24 06/18/24 06/18/24 Range/Units 16:00 19:00 22:20 WBC (3.98-10.04) x10^3/uL RBC (3.93-5.22) x10^6/uL Hgb (11.2-15.7) g/dL Hct (34.1-44.9) % MCV (79.4-94.8) fL MCH (25.6-32.2) pg MCHC (32.2-35.5) g/dL RDW (11.7-14.4) % Plt Count (182-369) x10^3/uL MPV (9.4-12.3) fL Gran % (34.0-71.1) % Immature Gran % (Auto) (0.001-0.429) % Nucleat RBC Rel Count (0.00-0.2) % Eos # (Auto) (0.04-0.36) x10^3/uL Immature Gran # (Auto) (0.001-0.031) x10^3u/L Absolute Lymphs (auto) (1.18-3.74) x10^3/uL Absolute Monos (auto) (0.24-0.86) x10^3/uL Absolute Nucleated RBC (0.00-0.012) x10^3u/L Lymphocytes % (19.3-51.7) % Monocytes % (4.7-12.5) % Eosinophils % (0.7-5.8) % Basophils % (0.1-1.2) % Absolute Granulocytes (1.56-6.13) x10^3/uL Basophils # (0.01-0.08) x10^3/uL PT (9.4-12.5) SECONDS INR (0.8-3.0) Sodium (135-145) mmol/L Potassium (3.5-5.1) mmol/L Chloride (98-107) mmol/L Carbon Dioxide (22-30) mmol/L Anion Gap (5-15) MEQ/L BUN (7-17) mg/dL Creatinine (0.52-1.04) mg/dL Estimated GFR ML/MIN Glucose (74-106) mg/dL POC Glucometer 97 (74 to 106) mg/dL Hemoglobin A1c (4.5-6.0) % Calcium (8.4-10.2) mg/dL Magnesium (1.6-2.3) mg/dL Total Bilirubin (0.2-1.3) mg/dL AST (14-36) U/L ALT (0-35) U/L Alkaline Phosphatase (38-126) U/L Troponin I < 0.012 < 0.012 (0.000-0.033) ng/mL NT-Pro-B Natriuret Pep (<300) pg/mL Serum Total Protein (6.3-8.2) g/dL Albumin (3.5-5.0) g/dL Amylase (30-110) U/L Lipase (23-300) U/L Monoscreen (NEGATIVE) Influenza Type A Ag (NEGATIVE) Influenza Type B Ag (NEGATIVE) RSV (PCR) (NEGATIVE) SARS-CoV-2 (PCR) (NEGATIVE) 06/19/24 06/19/24 06/19/24 Range/Units 07:50 07:50 08:12 WBC 4.5 (3.98-10.04) x10^3/uL RBC 4.61 (3.93-5.22) x10^6/uL Hgb 12.3 (11.2-15.7) g/dL Hct 40.6 (34.1-44.9) % MCV 88.1 (79.4-94.8) fL MCH 26.7 (25.6-32.2) pg MCHC 30.3 L (32.2-35.5) g/dL RDW 13.5 (11.7-14.4) % Plt Count 185 (182-369) x10^3/uL MPV 10.5 (9.4-12.3) fL Gran % 63.1 (34.0-71.1) % Immature Gran % (Auto) 0.0 L (0.001-0.429) % Nucleat RBC Rel Count 0.0 (0.00-0.2) % Eos # (Auto) 0.07 (0.04-0.36) x10^3/uL Immature Gran # (Auto) 0.00 L (0.001-0.031) x10^3u/L Absolute Lymphs (auto) 1.02 L (1.18-3.74) x10^3/uL Absolute Monos (auto) 0.54 (0.24-0.86) x10^3/uL Absolute Nucleated RBC 0.00 (0.00-0.012) x10^3u/L Lymphocytes % 22.8 (19.3-51.7) % Monocytes % 12.1 (4.7-12.5) % Eosinophils % 1.6 (0.7-5.8) % Basophils % 0.4 (0.1-1.2) % Absolute Granulocytes 2.82 (1.56-6.13) x10^3/uL Basophils # 0.02 (0.01-0.08) x10^3/uL PT (9.4-12.5) SECONDS INR (0.8-3.0) Sodium 137 (135-145) mmol/L Potassium 3.6 (3.5-5.1) mmol/L Chloride 103 (98-107) mmol/L Carbon Dioxide 30 (22-30) mmol/L Anion Gap 8.5 (5-15) MEQ/L BUN 12 (7-17) mg/dL Creatinine 0.93 (0.52-1.04) mg/dL Estimated GFR 62.9 ML/MIN Glucose 98 (74-106) mg/dL POC Glucometer 90 (74 to 106) mg/dL Hemoglobin A1c (4.5-6.0) % Calcium 8.6 (8.4-10.2) mg/dL Magnesium (1.6-2.3) mg/dL Total Bilirubin 0.60 (0.2-1.3) mg/dL AST 46 H (14-36) U/L ALT 40 H (0-35) U/L Alkaline Phosphatase 69 (38-126) U/L Troponin I (0.000-0.033) ng/mL NT-Pro-B Natriuret Pep 581 (<300) pg/mL Serum Total Protein 6.3 (6.3-8.2) g/dL Albumin 4.0 (3.5-5.0) g/dL Amylase (30-110) U/L Lipase (23-300) U/L Monoscreen (NEGATIVE) Influenza Type A Ag (NEGATIVE) Influenza Type B Ag (NEGATIVE) RSV (PCR) (NEGATIVE) SARS-CoV-2 (PCR) (NEGATIVE) 06/19/24 Range/Units 11:39 WBC (3.98-10.04) x10^3/uL RBC (3.93-5.22) x10^6/uL Hgb (11.2-15.7) g/dL Hct (34.1-44.9) % MCV (79.4-94.8) fL MCH (25.6-32.2) pg MCHC (32.2-35.5) g/dL RDW (11.7-14.4) % Plt Count (182-369) x10^3/uL MPV (9.4-12.3) fL Gran % (34.0-71.1) % Immature Gran % (Auto) (0.001-0.429) % Nucleat RBC Rel Count (0.00-0.2) % Eos # (Auto) (0.04-0.36) x10^3/uL Immature Gran # (Auto) (0.001-0.031) x10^3u/L Absolute Lymphs (auto) (1.18-3.74) x10^3/uL Absolute Monos (auto) (0.24-0.86) x10^3/uL Absolute Nucleated RBC (0.00-0.012) x10^3u/L Lymphocytes % (19.3-51.7) % Monocytes % (4.7-12.5) % Eosinophils % (0.7-5.8) % Basophils % (0.1-1.2) % Absolute Granulocytes (1.56-6.13) x10^3/uL Basophils # (0.01-0.08) x10^3/uL PT (9.4-12.5) SECONDS INR (0.8-3.0) Sodium (135-145) mmol/L Potassium (3.5-5.1) mmol/L Chloride (98-107) mmol/L Carbon Dioxide (22-30) mmol/L Anion Gap (5-15) MEQ/L BUN (7-17) mg/dL Creatinine (0.52-1.04) mg/dL Estimated GFR ML/MIN Glucose (74-106) mg/dL POC Glucometer 107 H (74 to 106) mg/dL Hemoglobin A1c (4.5-6.0) % Calcium (8.4-10.2) mg/dL Magnesium (1.6-2.3) mg/dL Total Bilirubin (0.2-1.3) mg/dL AST (14-36) U/L ALT (0-35) U/L Alkaline Phosphatase (38-126) U/L Troponin I (0.000-0.033) ng/mL NT-Pro-B Natriuret Pep (<300) pg/mL Serum Total Protein (6.3-8.2) g/dL Albumin (3.5-5.0) g/dL Amylase (30-110) U/L Lipase (23-300) U/L Monoscreen (NEGATIVE) Influenza Type A Ag (NEGATIVE) Influenza Type B Ag (NEGATIVE) RSV (PCR) (NEGATIVE) SARS-CoV-2 (PCR) (NEGATIVE) Micro Results-Entire Visit: Accuchecks Date 06/19/24 Date 06/18/24 Time 08:50 - Radiology Exams Ordered Rad Exams-Entire Visit: Radiology Procedures Category Date Time Status CHEST 1 VIEW (PORTABLE) Stat Exams 06/18/24 13:05 Completed LUMBAR LIMITED (2 OR 3 VIEWS) Stat Exams 06/18/24 17:25 Completed SACROILIAC JOINTS (MIN 3 VIEW Stat Exams 06/18/24 17:25 Completed - Procedures and Test Procedures and Tests throughout Hospitalization: Therapy Orders & Screens 06/18/24 16:47 EKG REPEAT IN AM Comment: Oxygen Nasal Cannula 2 lpm Comment: Respiratory Therapy Consult ONCE Comment: Reason For Exam: 06/18/24 17:25 Flutter Therapy UD Comment: Diagnosis: Hypoxia Incentive Spirometry UD Comment: Diagnosis: Hypoxia 06/18/24 18:39 Respiratory Therapy Assessment DAILY Comment: Diagnosis: hypoxia Discharge Exam General Appearance: no apparent distress Neurologic Exam: alert, oriented x 3, cooperative Eye Exam: PERRL Ears, Nose, Throat Exam: normal ENT inspection Neck Exam: normal inspection Respiratory Exam: normal breath sounds, lungs clear Cardiovascular Exam: regular rate/rhythm, normal heart sounds Gastrointestinal/Abdomen Exam: soft, normal bowel sounds Pelvic Exam: deferred Rectal Exam: deferred Back Exam: normal inspection Extremity Exam: normal inspection Final Diagnosis/Problem List - Final Discharge Diagnosis/Problem (1) Acute respiratory failure with hypoxia Current Visit: Yes Status: Resolved Code(s): J96.01 - ACUTE RESPIRATORY FAILURE WITH HYPOXIA (2) COPD exacerbation Current Visit: Yes Status: Acute Code(s): J44.1 - CHRONIC OBSTRUCTIVE PULMONARY DISEASE W (ACUTE) EXACERBATION (3) Infiltrate noted on imaging study Current Visit: Yes Status: Acute Code(s): R93.89 - ABNORMAL FINDINGS ON DX IMAGING OF OTH BODY STRUCTURES (4) HTN (hypertension) Current Visit: Yes Status: Acute Code(s): I10 - ESSENTIAL (PRIMARY) HYPERTENSION (5) HLD (hyperlipidemia) Current Visit: Yes Status: Acute Code(s): E78.5 - HYPERLIPIDEMIA, UNSPECIFIED (6) Generalized weakness Current Visit: Yes Status: Acute Code(s): R53.1 - WEAKNESS (7) Nausea Current Visit: Yes Status: Acute Code(s): R11.0 - NAUSEA (8) Back pain Current Visit: Yes Status: Acute Code(s): M54.9 - DORSALGIA, UNSPECIFIED - Discharge Discharge Date: 06/19/24 Disposition: Home, Self-Care Condition: Stable Prescriptions: New cefuroxime axetiL [Cefuroxime] 500 mg PO BID 7 Days #14 tablet Prednisone 20 mg [Deltasone 20 mg] 20 mg PO BID 5 Days #10 tablet Continue Gabapentin [Neurontin ] 100 mg PO DAILY PRN PRN PRN Reason: Pain Furosemide 40 mg [Lasix 40 MG] 40 mg PO DAILY Fexofenadine HCl [Jenni Allergy] 60 mg PO DAILY Ezetimibe 10 mg [Zetia 10 MG] 10 mg PO DAILY Escitalopram Oxalate [Lexapro] 20 mg PO DAILY Cholecalciferol (Vitamin D3) [Vitamin D3] 250 mcg PO DAILY Carvedilol 3.125 mg [Coreg 3.125 MG] 6.25 mg PO BID Apixaban [Eliquis 5 mg Tablet] 5 mg PO BID Allopurinol 300 mg [Zyloprim 300 mg] 300 mg PO DAILY Potassium Chloride 10 meq PO DAILY [place]-3/Dha/Epa/Fish Oil [[place]-3 Fish Oil 1,000 mg Sfgl] 1,000 mg PO DAILY Melatonin 5 - 10 mg PO HS Magnesium Oxide 400 mg [Mag-Ox 400] 250 mg PO UD Lisinopril 5 mg [Zestril 5 MG] 2.5 mg PO DAILY Albuterol Common Canister [Ventolin Common Canister] 3 puff IH Q4H PRN PRN PRN Reason: wheezing Fluticasone Propionate [24 Hour Allergy] 9.9 ml NS DAILY Hydrocodone/Acetaminophen [Hydrocodone-Acetamin 5-325 mg] 1 tab PO BID PRN PRN Reason: Pain Tirzepatide [Mounjaro] 7.5 mg SQ WEEKLY Cyclobenzaprine HCl 5 mg PO UD PRN PRN Reason: Pain Polymyxin B Sulf/Trimethoprim [Polymyxin B-Tmp Eye Drops] 1 drop OP UD Acetaminophen 500 mg [Tylenol Extra Strength 500 mg] 500 mg PO Q6H PRN PRN Reason: Pain Rutin/Hesp/Bioflav/C/Oxsteb524 [Bioflex Tablet] 1 tab PO DAILY Meclizine HCl 25 mg [Antivert 25 mg] 25 mg PO UD PRN PRN Reason: Nausea Cyanocobalamin 500 Mcg [Vitamin B-12 500 MCG] 1,000 mcg PO DAILY Follow up with: DELTA RICHARDS DO [Primary Care Provider] -
[2024-06-19 12:36] VITALS: BP 127/58; PULSE 63; RESP 14; TEMP 97.3
== END 2024-06-19 14:58 | disposition home or self-care (01) ==
LOC: ED 11:21 → MED SURG 16:44
PROVIDERS: ADMIT Internal Medicine; ATTEND Internal Medicine
DX: J96.01 Acute respiratory failure with hypoxia (principal); J44.1 Chronic obstructive pulmonary disease with (acute) exacerbation; R93.89 Abnormal findings on diagnostic imaging of other specified body structures; I10 Essential (primary) hypertension; E78.5 Hyperlipidemia, unspecified; R53.1 Weakness; R11.0 Nausea; M54.9 Dorsalgia, unspecified; I49.9 Cardiac arrhythmia, unspecified; E11.9 Type 2 diabetes mellitus without complications; F32.A Depression, unspecified; R19.7 Diarrhea, unspecified; R51.9 Headache, unspecified; R60.0 Localized edema; Z79.899 Other long term (current) drug therapy; Z79.01 Long term (current) use of anticoagulants
CPT/HCPCS: 0241U; 36415; 71045; 72100; 72202; 80053; 81001; 82150; 82947; 83036; 83690; 83735; 83880; 84484; 85025; 85610; 86308; 93005; 93268; 94667; 94668; 94760; 96360; 96361; 96374; 99285; G0378; Q3014; J0456; J0696; J1940; J2405; A9270-GY

== ENCOUNTER 2024-07-31 09:16 | Observation (INO) | payer MEDICARE, OTHER ==
[2024-07-31 10:15] LABS: Absolute Neutrophil Ct (ANC) 4.17 x10^3/uL (1.56-6.13); BASOPHIL % 0.3 % (0.1-1.2); Basophil (Absolute #) 0.02 x10^3/uL (0.01-0.08); Eosinophil % 1.7 % (0.7-5.8); Eosinophil (Absolute #) 0.11 x10^3/uL (0.04-0.36); Hematocrit 44.1 % (34.1-44.9); Hemoglobin 14.2 g/dL (11.2-15.7); IMMATURE GRAN # 0.02 x10^3u/L (0.001-0.031); IMMATURE GRAN % 0.3 % (0.001-0.429); Lymphocyte (Absolute #) 1.65 x10^3/uL (1.18-3.74); Lymphocytes % 25.2 % (19.3-51.7); Mean Cell Volume 84.3 fL (79.4-94.8); Mean Corpuscular Hemoglobin 27.2 pg (25.6-32.2); Mean Corpuscular Hgb Concent. 32.2 g/dL (32.2-35.5); Mean Platelet Volume 10.9 fL (9.4-12.3); Monocyte (Absolute #) 0.57 x10^3/uL (0.24-0.86); Monocytes % 8.7 % (4.7-12.5); Neutrophil % 63.8 % (34.0-71.1); Platelet Count 281 x10^3/uL (182-369); Red Blood Count 5.23 x10^6/uL (3.93-5.22); Red Cell Distribution Width 13.8 % (11.7-14.4); White Blood Count 6.5 x10^3/uL (3.98-10.04)
--- NOTE | 2024-07-31 10:20 | ERPHSYRPT ---
- History of Present Illness Historian: patient Exam Limitations: no limitations Patient Subjective Stated Complaint: C/O chest pain that began this am just prior to calling an ambulance while at rest at home. Indicates that she hasn't felt well for a few days. but chest pain only began this am. Triage Nursing Assessment: Patient arrived by EMS. She is alert and oriented. NO SOB or cough upon arrival to ER. 02 per N/C discontinued; patient sating WNL on room air. LEVIN WNL. Pale. Pitting edema present to BLE. Physician History: Patient has chest pain. She describes it as heaviness in her substernal area. She has not had any shortness of breath. She says she may have had some fever and chills. She has had a cough for a few weeks. The chest pain started about 3 or 4 hours prior to arrival. It did not get any better so she called EMS. EMS brought her in. She is still having some mild chest pain. She rates it it is about a 4 out of 10. Nothing seems to make it better or worse. She has multiple risk factors including diabetes hypertension hypercholesterolemia as well as family history. Activities at Onset: none Nitro Today/Relief: no nitro taken today Aspirin Treatment Today: no aspirin today Allergies/Adverse Reactions: pumpkin Adverse Reaction (Verified 07/31/24 09:34) Home Medications: Albuterol Common Canister [Ventolin Common Canister] 3 puff IH Q4H PRN PRN 08/21/21 [History] Apixaban [Eliquis 5 mg Tablet] 5 mg PO BID 08/21/21 [History] Carvedilol 3.125 mg [Coreg 3.125 MG] 6.25 mg PO BID 08/21/21 [History] Cholecalciferol (Vitamin D3) [Vitamin D3] 125 mg PO DAILY 08/21/21 [History] Escitalopram Oxalate [Lexapro] 20 mg PO DAILY 08/21/21 [History] Ezetimibe 10 mg [Zetia 10 MG] 10 mg PO DAILY 08/21/21 [History] Fexofenadine HCl [Jenni Allergy] 60 mg PO DAILY 08/21/21 [History] Furosemide 40 mg [Lasix 40 MG] 40 mg PO DAILY 08/21/21 [History] Lisinopril 5 mg [Zestril 5 MG] 2.5 mg PO DAILY 08/21/21 [History] Magnesium Oxide 400 mg [Mag-Ox 400] 400 mg PO BID 08/21/21 [History] Melatonin 5 - 10 mg PO HS 08/21/21 [History] Potassium Chloride 10 meq PO DAILY 08/21/21 [History] Cyanocobalamin 500 Mcg [Vitamin B-12 500 MCG] 1,000 mcg PO DAILY 06/18/24 [History] Hydrocodone/Acetaminophen [Hydrocodone-Acetamin 5-325 mg] 1 tab PO BID PRN 06/18/24 [History] Meclizine HCl 25 mg [Antivert 25 mg] 25 mg PO UD PRN 06/18/24 [History] Polymyxin B Sulf/Trimethoprim [Polymyxin B-Tmp Eye Drops] 1 drop OP UD 06/18/24 [History] Rutin/Hesp/Bioflav/C/[id number] [Bioflex Tablet] 1 tab PO DAILY 06/18/24 [History] Pregabalin 50 mg [Lyrica 50MG] 50 mg PO BID 07/31/24 [History] Hx Tetanus, Diphtheria Vaccination/Date Given: Yes Hx Influenza Vaccination/Date Given: Yes Hx Pneumococcal Vaccination/Date Given: Yes Immunizations Up to Date: Yes Travel Risk - International Travel Have you traveled outside of the country in past 3 weeks: No - Emerging Infectious Disease Are you exhibiting symptoms associated with any current EIDs: Yes Symptoms: Cough: New Onset, Shortness of Breath, Other (Please Comment) Comment: chest pain - Review of Systems Constitutional: No Symptoms Eyes: No Symptoms Respiratory: No Symptoms Cardiac: Chest Pain Abdominal/Gastrointestinal: No Symptoms All Other Systems: Reviewed and Negative - Past Medical History Pertinent Past Medical History: Yes Neurological History: Migraines, Peripheral Neuropathy ENT History: Cataracts Cardiac History: Arrhythmia, High Cholesterol, Hypertension Respiratory History: COPD Endocrine Medical History: Other Musculoskeletal History: Degenerative Disk Disease, Osteoarthritis GI Medical History: Diverticulitis, Diverticulosis History: No Pertinent History Psycho-Social History: Depression Female Reproductive Disorders: No Pertinent History Other Medical History: Bilingual Customer Service Specialist: Dr. Navarro, Philosophy Professor: Dr. Cardozo, "blood clots", Insomnia - Past Surgical History Past Surgical History: Yes Neuro Surgical History: No Pertinent History Cardiac: No Pertinent History Respiratory: No Pertinent History Gastrointestinal: Cholecystectomy Genitourinary: No Pertinent History Musculoskeletal: Joint Replacement, Other Female Surgical History: Tubal Ligation Other Surgical History: repair of broken finger, right shoulder surgery,removed bone spurs, aurora . IOL, repair torn retna right eye, right total knee replacement Significant Family History: heart disease, cancer, diabetes - Social History Smoking Status: Former smoker Drug Use: none - Social Determinants of Health Will the patient participate in the screening: Yes Do you worry about a steady place to live?: No Do you have any problems with any of the following?: No known problems In the past 12 months,have you had to go without utilities?: No Transportation Issues: No Has anyone in your support network made you feel unsafe?: No Have you or anyone in your house had to go w/o enough food: No - Nursing Vital Signs Nursing Vital Signs: Initial Vital Signs Temperature 97.9 F 07/31/24 09:24 Pulse Rate 52 L 07/31/24 09:24 Respiratory Rate 12 07/31/24 09:24 O2 Sat by Pulse Oximetry 93 L 07/31/24 09:24 Pain Scale Pain Intensity 0 - Physical Exam General Appearance: no apparent distress Eye Exam: PERRL/EOMI Ears, Nose, Throat Exam: normal ENT inspection Respiratory Exam: other (Clear lungs there is some expiratory wheezing. The breath sounds are slightly diminished in the bases. Overall good air movement) Cardiovascular Exam: regular rate/rhythm Gastrointestinal/Abdomen Exam: soft, normal bowel sounds Neurologic Exam: alert, oriented x 3 Skin Exam: normal color, warm SpO2: 96 - Course EKG Interpreted by Me: RATE, NORMAL AXIS, NORMAL INTERVALS, Right Bundle Branch Block Ordered Tests: Active Orders 24 hr Category Date Time Status EKG-ER Only STAT Care 07/31/24 09:54 Active CHEST 1 VIEW (PORTABLE) Stat Exams 07/31/24 09:54 Taken BNPII [NT PRO BNPII] Stat Lab 07/31/24 10:32 Completed CBC W DIFF Stat Lab 07/31/24 09:00 Completed CMP Stat Lab 07/31/24 10:32 Completed D-DIMER QUANTITATIVE Stat Lab 07/31/24 10:32 Completed TROPONIN Q4H Lab 07/31/24 10:32 Completed TROPONIN Q4H Lab 07/31/24 14:00 Ordered TROPONIN Q4H Lab 07/31/24 18:00 Ordered Medication Summary Discontinued Medications Generic Name Dose Route Start Last Admin Trade Name Gretchen PRN Reason Stop Dose Admin Aspirin 324 mg 07/31/24 12:27 Aspirin 81 Mg Tab.Chew PO 07/31/24 12:28 STAT ONE Lab/Rad Data: Laboratory Result Diagrams 07/31/24 09:00 07/31/24 10:32 Laboratory Results 07/31/24 07/31/24 07/31/24 Range/Units 10:32 10:32 10:32 WBC (3.98-10.04) x10^3/uL RBC (3.93-5.22) x10^6/uL Hgb (11.2-15.7) g/dL Hct (34.1-44.9) % MCV (79.4-94.8) fL MCH (25.6-32.2) pg MCHC (32.2-35.5) g/dL RDW (11.7-14.4) % Plt Count (182-369) x10^3/uL MPV (9.4-12.3) fL Gran % (34.0-71.1) % Immature Gran % (Auto) (0.001-0.429) % Nucleat RBC Rel Count (0.00-0.2) % Eos # (Auto) (0.04-0.36) x10^3/uL Immature Gran # (Auto) (0.001-0.031) x10^3u/L Absolute Lymphs (auto) (1.18-3.74) x10^3/uL Absolute Monos (auto) (0.24-0.86) x10^3/uL Absolute Nucleated RBC (0.00-0.012) x10^3u/L Lymphocytes % (19.3-51.7) % Monocytes % (4.7-12.5) % Eosinophils % (0.7-5.8) % Basophils % (0.1-1.2) % Absolute Granulocytes (1.56-6.13) x10^3/uL Basophils # (0.01-0.08) x10^3/uL D-Dimer 0.33 (0.0-0.50) mg/L Sodium (135-145) mmol/L Potassium (3.5-5.1) mmol/L Chloride (98-107) mmol/L Carbon Dioxide (22-30) mmol/L Anion Gap (5-15) MEQ/L BUN (7-17) mg/dL Creatinine (0.52-1.04) mg/dL Estimated GFR ML/MIN Glucose (74-106) mg/dL Calcium (8.4-10.2) mg/dL Total Bilirubin (0.2-1.3) mg/dL AST (14-36) U/L ALT (0-35) U/L Alkaline Phosphatase (38-126) U/L Troponin I < 0.012 (0.000-0.033) ng/mL NT-Pro-B Natriuret Pep 888 (<300) pg/mL Serum Total Protein (6.3-8.2) g/dL Albumin (3.5-5.0) g/dL Influenza Type A Ag (NEGATIVE) Influenza Type B Ag (NEGATIVE) RSV (PCR) (NEGATIVE) SARS-CoV-2 (PCR) (NEGATIVE) 07/31/24 07/31/24 07/31/24 Range/Units 10:32 09:55 09:00 WBC 6.5 (3.98-10.04) x10^3/uL RBC 5.23 H (3.93-5.22) x10^6/uL Hgb 14.2 (11.2-15.7) g/dL Hct 44.1 (34.1-44.9) % MCV 84.3 (79.4-94.8) fL MCH 27.2 (25.6-32.2) pg MCHC 32.2 (32.2-35.5) g/dL RDW 13.8 (11.7-14.4) % Plt Count 281 (182-369) x10^3/uL MPV 10.9 (9.4-12.3) fL Gran % 63.8 (34.0-71.1) % Immature Gran % (Auto) 0.3 (0.001-0.429) % Nucleat RBC Rel Count 0.0 (0.00-0.2) % Eos # (Auto) 0.11 (0.04-0.36) x10^3/uL Immature Gran # (Auto) 0.02 (0.001-0.031) x10^3u/L Absolute Lymphs (auto) 1.65 (1.18-3.74) x10^3/uL Absolute Monos (auto) 0.57 (0.24-0.86) x10^3/uL Absolute Nucleated RBC 0.00 (0.00-0.012) x10^3u/L Lymphocytes % 25.2 (19.3-51.7) % Monocytes % 8.7 (4.7-12.5) % Eosinophils % 1.7 (0.7-5.8) % Basophils % 0.3 (0.1-1.2) % Absolute Granulocytes 4.17 (1.56-6.13) x10^3/uL Basophils # 0.02 (0.01-0.08) x10^3/uL D-Dimer (0.0-0.50) mg/L Sodium 142 (135-145) mmol/L Potassium 3.5 (3.5-5.1) mmol/L Chloride 107 (98-107) mmol/L Carbon Dioxide 24 (22-30) mmol/L Anion Gap 15.3 H (5-15) MEQ/L BUN 14 (7-17) mg/dL Creatinine 0.68 (0.52-1.04) mg/dL Estimated GFR 89.1 ML/MIN Glucose 127 H (74-106) mg/dL Calcium 9.2 (8.4-10.2) mg/dL Total Bilirubin 0.60 (0.2-1.3) mg/dL AST 30 (14-36) U/L ALT 33 (0-35) U/L Alkaline Phosphatase 71 (38-126) U/L Troponin I (0.000-0.033) ng/mL NT-Pro-B Natriuret Pep (<300) pg/mL Serum Total Protein 6.4 (6.3-8.2) g/dL Albumin 4.1 (3.5-5.0) g/dL Influenza Type A Ag NEGATIVE (NEGATIVE) Influenza Type B Ag NEGATIVE (NEGATIVE) RSV (PCR) NEGATIVE (NEGATIVE) SARS-CoV-2 (PCR) NEGATIVE (NEGATIVE) - Progress Progress: improved Air Movement: good Progress Note: On the differential was COVID flu RSV pneumonia and coronary vascular disease as well as pulmonary embolism.Her EKG was done as interpreted by me. There is no acute findings. She did have normal sinus rhythm with a right bundle branch block there is no ST or T changes.The patient was getting unusual blood pressure Readings. She has very very short arms and they are very big around. It is hard to get a cuff on her. I did a manual blood pressure on her and got 150/90. I think that that is more accurate than the readings were getting on the automated blood pressure cuff.In any event on the differential was congestive heart failure coronary vascular event, COVID flu and RSV, pneumonia, pleurisy, pulmonary embolism. On her chest x-ray there was some findings consistent with congestive heart failure. She also had an elevated BNP. Her troponins were not elevated. And I did not see anything on her EKG. I do not think that she is having a coronary vascular event. She may have some congestive heart failure. I do not think it is an infectious process. I spoke with the hospitalist. We are going to put the patient in and do serial cardiac enzymes and address her congestive heart failure. 07/31/24 10:20 07/31/24 12:34 Medical Desision Making - Independent Historian Additional History obtained from: Spouse - Discussion of managment Care discussed with:: hospitalist Reviewed:: Test results, Need for additional workup Agreed on:: Treatment plan Will see patient: in hospital - Diagnostic Testing Diagnostic test were ordered, analyzed, and reviewed by me: Yes Radiological Interpretation: Interpreted by me - Departure Departure Disposition: Observation Clinical Impression: Chest pain, Congestive heart failure Condition: Stable Critical Care Time: No Referrals: DELTA RICHARDS DO [Primary Care Provider] - Follow up/PCP as directed Instructions: Heart Failure
[2024-07-31 10:50] LABS: ALBUMIN 4.1 g/dL (3.5-5.0); ANION GAP 15.3 MEQ/L (5-15); BILIRUBIN,TOTAL 0.6 mg/dL (0.2-1.3); Calcium 9.2 mg/dL (8.4-10.2); Creatinine 1 0.68 mg/dL (0.52-1.04); EST GLOMERULAR FILTRATION RATE 89.1 ML/MIN; Potassium 3.5 mmol/L (3.5-5.1); Total Protein 6.4 g/dL (6.3-8.2)
[2024-07-31 10:58] LABS: INFLUENZA A NEGATIVE (NEGATIVE); INFLUENZA B NEGATIVE (NEGATIVE); RESPIRATORY SYNCTIAL VIRUS NEGATIVE (NEGATIVE); SARS-CoV-2 Xpert Express NEGATIVE (NEGATIVE)
[2024-07-31] MEDS ORDERED: BABY ASPIRIN 81 MG CHEW ONE (12:37)
[2024-07-31] MEDS: BABY ASPIRIN 81 MG CHEW PO ONE (12:38)
--- NOTE | 2024-07-31 13:54 | PCM.HP ---
<YVROSE CRAIG - Last Filed: 07/31/24 13:43> History of Present Illness - Chief Complaint Chief Complaint: Chest pain Date: 07/31/24 History of Present Illness: is a 79 year old female with mulitple cardiac risk factors including DM, HLD, and HTN presented to ED 07/31/24 with complaints of chest pain which started approximately four hours prior to arrival. She describes the pain as substernal and pressure-like with no radiation. Associated nausea and shortness of breath. No aggravating or relieving factors. Chest pain has improved since admission and now rating at 2/10 on numerical pain scale. She reports that since her last admission in May for pneumonia she has had intermittent chest pain along with a non-productive cough, shortness of breath, nausea, diarrhea , and generalized weakness. Patient also has pmhx of fibromyalgia, COPD, diverticulosis, and depression. Vitals signs stable. CXR pending final read. Lab findings showing elevated BNP otherwise unremarkable. Respiratory panel negative. Troponin x 1 WNL. Patient given ASA in the ED. Admit for Chest pain. - Review of Systems Constitutional: Chills, Weakness Eyes: No Symptoms Ears, Nose, & Throat: No Symptoms Respiratory: Cough, Short Of Breath Cardiac: Chest Pain Abdominal/Gastrointestinal: Nausea, Vomiting, Diarrhea Genitourinary Symptoms: No Symptoms Musculoskeletal: No Symptoms Skin: No Symptoms Neurological: No Symptoms Psychological: No Symptoms Endocrine: No Symptoms Hematologic/Lymphatic: No Symptoms Immunological/Allergic: No Symptoms Medications & Allergies Home Medications: Home Medication List Albuterol Common Canister [Ventolin Common Canister] 3 puff IH Q4H PRN PRN 08/21/21 [History Confirmed 07/31/24] Apixaban [Eliquis 5 mg Tablet] 5 mg PO BID 08/21/21 [History Confirmed 07/31/24] Carvedilol 3.125 mg [Coreg 3.125 MG] 6.25 mg PO BID 08/21/21 [History Confirmed 07/31/24] Cholecalciferol (Vitamin D3) [Vitamin D3] 125 mg PO DAILY 08/21/21 [History Confirmed 07/31/24] Escitalopram Oxalate [Lexapro] 20 mg PO DAILY 08/21/21 [History Confirmed 07/31/24] Ezetimibe 10 mg [Zetia 10 MG] 10 mg PO DAILY 08/21/21 [History Confirmed 07/31/24] Fexofenadine HCl [Jenni Allergy] 60 mg PO DAILY 08/21/21 [History Confirmed 07/31/24] Furosemide 40 mg [Lasix 40 MG] 40 mg PO DAILY 08/21/21 [History Confirmed 07/31/24] Magnesium Oxide 400 mg [Mag-Ox 400] 400 mg PO BID 08/21/21 [History Confirmed 07/31/24] Potassium Chloride 10 meq PO DAILY 08/21/21 [History Confirmed 07/31/24] Cyanocobalamin 500 Mcg [Vitamin B-12 500 MCG] 1,000 mcg PO DAILY 06/18/24 [History Confirmed 07/31/24] Meclizine HCl 25 mg [Antivert 25 mg] 25 mg PO DAILY PRN 06/18/24 [History Confirmed 07/31/24] Rutin/Hesp/Bioflav/C/[id number] [Bioflex Tablet] 1 tab PO DAILY 06/18/24 [History Confirmed 07/31/24] Budesonide/Glycopyr/Formoterol [Breztri Aerosphere Inhaler] 2 puffs IH BID 07/31/24 [History Confirmed 07/31/24] Carboxymethylcellulose Sodium [Artificial Tears] 1 drop OP DAILY 07/31/24 [History Confirmed 07/31/24] Cranberry Conc/C/Bacill Coag [Azo Cranberry Tablet] 1 each PO DAILY 07/31/24 [History Confirmed 07/31/24] Non-Formulary Drug [Non-Formulary Bulk Item] 1 - 2 each PO QHS 07/31/24 [History Confirmed 07/31/24] lisinopriL [Zestril] 2.5 mg PO DAILY 07/31/24 [History Confirmed 07/31/24] Allergies/Adverse Reactions: Allergies Allergy/AdvReac Type Severity Reaction Status Date / Time pumpkin AdvReac Verified 07/31/24 09:34 - Past Medical History Past Medical History: Yes Neurological History: Migraines, Peripheral Neuropathy ENT History: Cataracts Cardiac History: Arrhythmia, High Cholesterol, Hypertension Respiratory History: COPD Endocrine Medical History: Other Musculoskelatal History: Degenerative Disk Disease, Osteoarthritis GI Medical History: Diverticulitis, Diverticulosis History: No Pertinent History Pyscho-Social History: Depression Reproductive Disorders: No Pertinent History Comment: Chief Internal Auditor: Dr. Navarro, Mathematics Lecturer: Dr. Cardozo, "blood clots", Insomnia - Past Surgical History Past Surgical History: Yes Neuro Surgical History: No Pertinent History Cardiac History: No Pertinent History Respiratory Surgery: No Pertinent History GI Surgical History: Cholecystectomy Genitourinary Surgical Hx: No Pertinent History Musculskeletal Surgical Hx: Joint Replacement, Other Female Surgical History: Tubal Ligation Other Surgical History: repair of broken finger, right shoulder surgery,removed bone spurs, aurora . IOL, repair torn retna right eye, right total knee replacement Significant Family History: heart disease, cancer, diabetes - Social History Smoking Status: Former smoker How long have you smoked: Years Exposure to second hand smoke: No Alcohol: None Drug Use: none - Social Determinants of Health Will the patient participate in the screening: Yes Do you worry about a steady place to live?: No Do you have any problems with any of the following?: No known problems In the past 12 months,have you had to go without utilities?: No Have you or anyone in your house had to go without enough: No Transportation Issues: No Has anyone in your support network made you feel unsafe?: No Does the patient want assistance with any of the above?: No - Physical Exam Vital Signs: Vital Signs - 24 hr Temp Pulse Resp BP BP Pulse Ox 07/31/24 13:42 152/63 07/31/24 13:16 96.4 F 52 L 20 97 07/31/24 13:00 55 L 21 157/70 96 07/31/24 12:44 96 07/31/24 12:31 53 L 15 179/45 98 07/31/24 12:17 54 L 12 210/71 97 07/31/24 12:00 53 L 15 207/91 97 07/31/24 11:30 52 L 12 222/66 97 07/31/24 11:01 46 L 15 196/73 98 07/31/24 10:01 52 L 14 118/95 96 07/31/24 09:30 53 L 14 215/66 93 L 07/31/24 09:25 52 L 15 203/65 91 L 07/31/24 09:24 97.9 F 52 L 12 93 L General Appearance: no apparent distress Neurologic Exam: alert, oriented x 3, cooperative Eye Exam: PERRL/EOMI Ears, Nose, Throat Exam: normal ENT inspection Neck Exam: normal inspection Respiratory Exam: normal breath sounds, lungs clear Cardiovascular Exam: regular rate/rhythm, normal heart sounds Gastrointestinal/Abdomen Exam: soft, normal bowel sounds Pelvic Exam: not done Rectal Exam: deferred Back Exam: normal inspection Extremity Exam: normal inspection Skin Exam: normal color Results - Labs Lab/Micro Results: Lab Results-Last 24 Hours 07/31/24 07/31/24 07/31/24 Range/Units 09:00 09:55 10:32 WBC 6.5 (3.98-10.04) x10^3/uL RBC 5.23 H (3.93-5.22) x10^6/uL Hgb 14.2 (11.2-15.7) g/dL Hct 44.1 (34.1-44.9) % MCV 84.3 (79.4-94.8) fL MCH 27.2 (25.6-32.2) pg MCHC 32.2 (32.2-35.5) g/dL RDW 13.8 (11.7-14.4) % Plt Count 281 (182-369) x10^3/uL MPV 10.9 (9.4-12.3) fL Gran % 63.8 (34.0-71.1) % Immature Gran % (Auto) 0.3 (0.001-0.429) % Nucleat RBC Rel Count 0.0 (0.00-0.2) % Eos # (Auto) 0.11 (0.04-0.36) x10^3/uL Immature Gran # (Auto) 0.02 (0.001-0.031) x10^3u/L Absolute Lymphs (auto) 1.65 (1.18-3.74) x10^3/uL Absolute Monos (auto) 0.57 (0.24-0.86) x10^3/uL Absolute Nucleated RBC 0.00 (0.00-0.012) x10^3u/L Lymphocytes % 25.2 (19.3-51.7) % Monocytes % 8.7 (4.7-12.5) % Eosinophils % 1.7 (0.7-5.8) % Basophils % 0.3 (0.1-1.2) % Absolute Granulocytes 4.17 (1.56-6.13) x10^3/uL Basophils # 0.02 (0.01-0.08) x10^3/uL D-Dimer (0.0-0.50) mg/L Sodium 142 (135-145) mmol/L Potassium 3.5 (3.5-5.1) mmol/L Chloride 107 (98-107) mmol/L Carbon Dioxide 24 (22-30) mmol/L Anion Gap 15.3 H (5-15) MEQ/L BUN 14 (7-17) mg/dL Creatinine 0.68 (0.52-1.04) mg/dL Estimated GFR 89.1 ML/MIN Glucose 127 H (74-106) mg/dL Calcium 9.2 (8.4-10.2) mg/dL Total Bilirubin 0.60 (0.2-1.3) mg/dL AST 30 (14-36) U/L ALT 33 (0-35) U/L Alkaline Phosphatase 71 (38-126) U/L Troponin I (0.000-0.033) ng/mL NT-Pro-B Natriuret Pep (<300) pg/mL Serum Total Protein 6.4 (6.3-8.2) g/dL Albumin 4.1 (3.5-5.0) g/dL Influenza Type A Ag NEGATIVE (NEGATIVE) Influenza Type B Ag NEGATIVE (NEGATIVE) RSV (PCR) NEGATIVE (NEGATIVE) SARS-CoV-2 (PCR) NEGATIVE (NEGATIVE) 07/31/24 07/31/24 07/31/24 Range/Units 10:32 10:32 10:32 WBC (3.98-10.04) x10^3/uL RBC (3.93-5.22) x10^6/uL Hgb (11.2-15.7) g/dL Hct (34.1-44.9) % MCV (79.4-94.8) fL MCH (25.6-32.2) pg MCHC (32.2-35.5) g/dL RDW (11.7-14.4) % Plt Count (182-369) x10^3/uL MPV (9.4-12.3) fL Gran % (34.0-71.1) % Immature Gran % (Auto) (0.001-0.429) % Nucleat RBC Rel Count (0.00-0.2) % Eos # (Auto) (0.04-0.36) x10^3/uL Immature Gran # (Auto) (0.001-0.031) x10^3u/L Absolute Lymphs (auto) (1.18-3.74) x10^3/uL Absolute Monos (auto) (0.24-0.86) x10^3/uL Absolute Nucleated RBC (0.00-0.012) x10^3u/L Lymphocytes % (19.3-51.7) % Monocytes % (4.7-12.5) % Eosinophils % (0.7-5.8) % Basophils % (0.1-1.2) % Absolute Granulocytes (1.56-6.13) x10^3/uL Basophils # (0.01-0.08) x10^3/uL D-Dimer 0.33 (0.0-0.50) mg/L Sodium (135-145) mmol/L Potassium (3.5-5.1) mmol/L Chloride (98-107) mmol/L Carbon Dioxide (22-30) mmol/L Anion Gap (5-15) MEQ/L BUN (7-17) mg/dL Creatinine (0.52-1.04) mg/dL Estimated GFR ML/MIN Glucose (74-106) mg/dL Calcium (8.4-10.2) mg/dL Total Bilirubin (0.2-1.3) mg/dL AST (14-36) U/L ALT (0-35) U/L Alkaline Phosphatase (38-126) U/L Troponin I < 0.012 (0.000-0.033) ng/mL NT-Pro-B Natriuret Pep 888 (<300) pg/mL Serum Total Protein (6.3-8.2) g/dL Albumin (3.5-5.0) g/dL Influenza Type A Ag (NEGATIVE) Influenza Type B Ag (NEGATIVE) RSV (PCR) (NEGATIVE) SARS-CoV-2 (PCR) (NEGATIVE) - Radiology Impressions Radiology Exams & Impressions: Radiology Procedures Category Date Time Status CHEST 1 VIEW (PORTABLE) Stat Exams 07/31/24 09:54 Taken Assessment/Plan (1) Chest pain Current Visit: Yes Status: Acute Assessment & Plan: -Trops x 1 negative -continue series -EKG with RBBB NS - No ST elevation/deviations -CXR pending final read- question of CHF -Lasix 40mg x 1 dose - no edema on exam -Consider echo pending final cxr -BNP elevated at 888 -elevate HOB/Daily weights Code(s): R07.9 - CHEST PAIN, UNSPECIFIED (2) COPD (chronic obstructive pulmonary disease) Current Visit: Yes Status: Acute Assessment & Plan: -Supplemental oxygen with goal spo2 > 92% - RA at baseline - currently on RA -RT eval -Nebs/INH -CXR pending radiology read - per ED read ?CHF -CBC reviewed and unremarkable -respiratory panel negative -Flutter/IS -Cough syrup (3) Nausea Current Visit: Yes Status: Acute Assessment & Plan: -anti-emectics prn Code(s): R11.0 - NAUSEA (4) Diarrhea Current Visit: Yes Status: Acute Assessment & Plan: -collect stool studies - cdiff/ cultures Code(s): R19.7 - DIARRHEA, UNSPECIFIED (5) Generalized weakness Current Visit: No Status: Acute Assessment & Plan: -PT/OT eval -may be secondary to pneumonia back in May Code(s): R53.1 - WEAKNESS (6) HLD (hyperlipidemia) Current Visit: No Status: Acute Assessment & Plan: -Continue statin Code(s): E78.5 - HYPERLIPIDEMIA, UNSPECIFIED (7) HTN (hypertension) Current Visit: No Status: Acute Assessment & Plan: -BP stable - use manual or large cuff for BP readings -continue home meds Code(s): I10 - ESSENTIAL (PRIMARY) HYPERTENSION (8) DM2 (diabetes mellitus, type 2) Current Visit: No Status: Chronic Assessment & Plan: -SSI -A1c reviewed from 06/18/24- good control at 5.33 -ADA diet VTE: Eliquis Dispo: 24-48 hours Code status: SCO Telemedicine Encounter - Telemedicine Encounter Telemedicine Encounter: "The entirety of this encounter was performed via Telemedicine" This visit was performed using real-time audio and video connection between my location and thepatients locationwith the assistance of a surrogateat the patients location. Written or verbal consent was obtained from the patient/guardian to perform this visit using[facility] technology. Any patient questions regarding the telemedicine interaction were answered. <HAROON LEA - Last Filed: 07/31/24 23:32> History of Present Illness - Chief Complaint History of Present Illness: is a 79 year old female. - Physical Exam Vital Signs: Vital Signs - 24 hr Temp Pulse Resp BP BP BP Pulse Ox 07/31/24 20:03 95 07/31/24 20:00 98.5 F 69 20 176/77 95 07/31/24 15:24 54 L 16 99 07/31/24 13:42 152/63 07/31/24 13:25 96.4 F 52 L 20 152/63 97 07/31/24 13:16 96.4 F 52 L 20 97 07/31/24 13:00 55 L 21 157/70 96 07/31/24 12:44 96 07/31/24 12:31 53 L 15 179/45 98 07/31/24 12:17 54 L 12 210/71 97 07/31/24 12:00 53 L 15 207/91 97 07/31/24 11:30 52 L 12 222/66 97 07/31/24 11:01 46 L 15 196/73 98 07/31/24 10:01 52 L 14 118/95 96 07/31/24 09:30 53 L 14 215/66 93 L 07/31/24 09:25 52 L 15 203/65 91 L 07/31/24 09:24 97.9 F 52 L 12 93 L Results - Labs Lab/Micro Results: Lab Results-Last 24 Hours 07/31/24 07/31/24 07/31/24 Range/Units 09:00 09:55 10:32 WBC 6.5 (3.98-10.04) x10^3/uL RBC 5.23 H (3.93-5.22) x10^6/uL Hgb 14.2 (11.2-15.7) g/dL Hct 44.1 (34.1-44.9) % MCV 84.3 (79.4-94.8) fL MCH 27.2 (25.6-32.2) pg MCHC 32.2 (32.2-35.5) g/dL RDW 13.8 (11.7-14.4) % Plt Count 281 (182-369) x10^3/uL MPV 10.9 (9.4-12.3) fL Gran % 63.8 (34.0-71.1) % Immature Gran % (Auto) 0.3 (0.001-0.429) % Nucleat RBC Rel Count 0.0 (0.00-0.2) % Eos # (Auto) 0.11 (0.04-0.36) x10^3/uL Immature Gran # (Auto) 0.02 (0.001-0.031) x10^3u/L Absolute Lymphs (auto) 1.65 (1.18-3.74) x10^3/uL Absolute Monos (auto) 0.57 (0.24-0.86) x10^3/uL Absolute Nucleated RBC 0.00 (0.00-0.012) x10^3u/L Lymphocytes % 25.2 (19.3-51.7) % Monocytes % 8.7 (4.7-12.5) % Eosinophils % 1.7 (0.7-5.8) % Basophils % 0.3 (0.1-1.2) % Absolute Granulocytes 4.17 (1.56-6.13) x10^3/uL Basophils # 0.02 (0.01-0.08) x10^3/uL D-Dimer (0.0-0.50) mg/L Sodium 142 (135-145) mmol/L Potassium 3.5 (3.5-5.1) mmol/L Chloride 107 (98-107) mmol/L Carbon Dioxide 24 (22-30) mmol/L Anion Gap 15.3 H (5-15) MEQ/L BUN 14 (7-17) mg/dL Creatinine 0.68 (0.52-1.04) mg/dL Estimated GFR 89.1 ML/MIN Glucose 127 H (74-106) mg/dL POC Glucometer (74 to 106) mg/dL Calcium 9.2 (8.4-10.2) mg/dL Total Bilirubin 0.60 (0.2-1.3) mg/dL AST 30 (14-36) U/L ALT 33 (0-35) U/L Alkaline Phosphatase 71 (38-126) U/L Troponin I (0.000-0.033) ng/mL NT-Pro-B Natriuret Pep (<300) pg/mL Serum Total Protein 6.4 (6.3-8.2) g/dL Albumin 4.1 (3.5-5.0) g/dL Influenza Type A Ag NEGATIVE (NEGATIVE) Influenza Type B Ag NEGATIVE (NEGATIVE) RSV (PCR) NEGATIVE (NEGATIVE) SARS-CoV-2 (PCR) NEGATIVE (NEGATIVE) 07/31/24 07/31/24 07/31/24 Range/Units 10:32 10:32 10:32 WBC (3.98-10.04) x10^3/uL RBC (3.93-5.22) x10^6/uL Hgb (11.2-15.7) g/dL Hct (34.1-44.9) % MCV (79.4-94.8) fL MCH (25.6-32.2) pg MCHC (32.2-35.5) g/dL RDW (11.7-14.4) % Plt Count (182-369) x10^3/uL MPV (9.4-12.3) fL Gran % (34.0-71.1) % Immature Gran % (Auto) (0.001-0.429) % Nucleat RBC Rel Count (0.00-0.2) % Eos # (Auto) (0.04-0.36) x10^3/uL Immature Gran # (Auto) (0.001-0.031) x10^3u/L Absolute Lymphs (auto) (1.18-3.74) x10^3/uL Absolute Monos (auto) (0.24-0.86) x10^3/uL Absolute Nucleated RBC (0.00-0.012) x10^3u/L Lymphocytes % (19.3-51.7) % Monocytes % (4.7-12.5) % Eosinophils % (0.7-5.8) % Basophils % (0.1-1.2) % Absolute Granulocytes (1.56-6.13) x10^3/uL Basophils # (0.01-0.08) x10^3/uL D-Dimer 0.33 (0.0-0.50) mg/L Sodium (135-145) mmol/L Potassium (3.5-5.1) mmol/L Chloride (98-107) mmol/L Carbon Dioxide (22-30) mmol/L Anion Gap (5-15) MEQ/L BUN (7-17) mg/dL Creatinine (0.52-1.04) mg/dL Estimated GFR ML/MIN Glucose (74-106) mg/dL POC Glucometer (74 to 106) mg/dL Calcium (8.4-10.2) mg/dL Total Bilirubin (0.2-1.3) mg/dL AST (14-36) U/L ALT (0-35) U/L Alkaline Phosphatase (38-126) U/L Troponin I < 0.012 (0.000-0.033) ng/mL NT-Pro-B Natriuret Pep 888 (<300) pg/mL Serum Total Protein (6.3-8.2) g/dL Albumin (3.5-5.0) g/dL Influenza Type A Ag (NEGATIVE) Influenza Type B Ag (NEGATIVE) RSV (PCR) (NEGATIVE) SARS-CoV-2 (PCR) (NEGATIVE) 07/31/24 07/31/24 07/31/24 Range/Units 14:00 16:05 18:30 WBC (3.98-10.04) x10^3/uL RBC (3.93-5.22) x10^6/uL Hgb (11.2-15.7) g/dL Hct (34.1-44.9) % MCV (79.4-94.8) fL MCH (25.6-32.2) pg MCHC (32.2-35.5) g/dL RDW (11.7-14.4) % Plt Count (182-369) x10^3/uL MPV (9.4-12.3) fL Gran % (34.0-71.1) % Immature Gran % (Auto) (0.001-0.429) % Nucleat RBC Rel Count (0.00-0.2) % Eos # (Auto) (0.04-0.36) x10^3/uL Immature Gran # (Auto) (0.001-0.031) x10^3u/L Absolute Lymphs (auto) (1.18-3.74) x10^3/uL Absolute Monos (auto) (0.24-0.86) x10^3/uL Absolute Nucleated RBC (0.00-0.012) x10^3u/L Lymphocytes % (19.3-51.7) % Monocytes % (4.7-12.5) % Eosinophils % (0.7-5.8) % Basophils % (0.1-1.2) % Absolute Granulocytes (1.56-6.13) x10^3/uL Basophils # (0.01-0.08) x10^3/uL D-Dimer (0.0-0.50) mg/L Sodium (135-145) mmol/L Potassium (3.5-5.1) mmol/L Chloride (98-107) mmol/L Carbon Dioxide (22-30) mmol/L Anion Gap (5-15) MEQ/L BUN (7-17) mg/dL Creatinine (0.52-1.04) mg/dL Estimated GFR ML/MIN Glucose (74-106) mg/dL POC Glucometer 138 H (74 to 106) mg/dL Calcium (8.4-10.2) mg/dL Total Bilirubin (0.2-1.3) mg/dL AST (14-36) U/L ALT (0-35) U/L Alkaline Phosphatase (38-126) U/L Troponin I < 0.012 < 0.012 (0.000-0.033) ng/mL NT-Pro-B Natriuret Pep (<300) pg/mL Serum Total Protein (6.3-8.2) g/dL Albumin (3.5-5.0) g/dL Influenza Type A Ag (NEGATIVE) Influenza Type B Ag (NEGATIVE) RSV (PCR) (NEGATIVE) SARS-CoV-2 (PCR) (NEGATIVE) 07/31/24 Range/Units 22:16 WBC (3.98-10.04) x10^3/uL RBC (3.93-5.22) x10^6/uL Hgb (11.2-15.7) g/dL Hct (34.1-44.9) % MCV (79.4-94.8) fL MCH (25.6-32.2) pg MCHC (32.2-35.5) g/dL RDW (11.7-14.4) % Plt Count (182-369) x10^3/uL MPV (9.4-12.3) fL Gran % (34.0-71.1) % Immature Gran % (Auto) (0.001-0.429) % Nucleat RBC Rel Count (0.00-0.2) % Eos # (Auto) (0.04-0.36) x10^3/uL Immature Gran # (Auto) (0.001-0.031) x10^3u/L Absolute Lymphs (auto) (1.18-3.74) x10^3/uL Absolute Monos (auto) (0.24-0.86) x10^3/uL Absolute Nucleated RBC (0.00-0.012) x10^3u/L Lymphocytes % (19.3-51.7) % Monocytes % (4.7-12.5) % Eosinophils % (0.7-5.8) % Basophils % (0.1-1.2) % Absolute Granulocytes (1.56-6.13) x10^3/uL Basophils # (0.01-0.08) x10^3/uL D-Dimer (0.0-0.50) mg/L Sodium (135-145) mmol/L Potassium (3.5-5.1) mmol/L Chloride (98-107) mmol/L Carbon Dioxide (22-30) mmol/L Anion Gap (5-15) MEQ/L BUN (7-17) mg/dL Creatinine (0.52-1.04) mg/dL Estimated GFR ML/MIN Glucose (74-106) mg/dL POC Glucometer 115 H (74 to 106) mg/dL Calcium (8.4-10.2) mg/dL Total Bilirubin (0.2-1.3) mg/dL AST (14-36) U/L ALT (0-35) U/L Alkaline Phosphatase (38-126) U/L Troponin I (0.000-0.033) ng/mL NT-Pro-B Natriuret Pep (<300) pg/mL Serum Total Protein (6.3-8.2) g/dL Albumin (3.5-5.0) g/dL Influenza Type A Ag (NEGATIVE) Influenza Type B Ag (NEGATIVE) RSV (PCR) (NEGATIVE) SARS-CoV-2 (PCR) (NEGATIVE) Microbiology 07/31/24 Unknown Stool Culture Result 1 - Final Stool Not Reportable Stool Culture Result 2 - Final Not Reportable Stool Culture Result 3 - Final Not Reportable Stool Culture Result 4 - Final Not Reportable Stool Culture Organism Suscept - Final Not Reportable Campylobacter Result 1 - Final Not Reportable Campylobacter Result 2 - Final Not Reportable Campylobactor Result 3 - Final Not Reportable Campylobacter Result 4 - Final Not Reportable Campylobactor Susceptibility - Final Not Reportable Accuchecks Date 07/31/24 Time 16:55 - Radiology Impressions Radiology Exams & Impressions: Radiology Procedures Category Date Time Status CHEST 1 VIEW (PORTABLE) Stat Exams 07/31/24 09:54 Completed - Other Procedures and Tests Respiratory Therapy 07/31/24 14:10 EKG REPEAT IN AM Respiratory Therapy Consult ONCE 07/31/24 15:24 Oxygen NASAL CANNULA 2 lpm Telemedicine Encounter - Telemedicine Encounter Telemedicine Encounter: "The entirety of this encounter was performed via Telemedicine" This visit was performed using real-time audio and video connection between my location and thepatients locationwith the assistance of a surrogateat the patients location. Written or verbal consent was obtained from the patient/guardian to perform this visit using[facility] technology. Any patient questions regarding the telemedicine interaction were answered. JOSE Encounter - JOSE Encounter Attestation JOSE Encounter Attestation: "IhavepersonallyseenandexaminedKROSA,YANNICK SHEARER andhavediscussed jose luis rasmussen aspects of their care with Yvrose Lopez agree with the history, physical exam (any modifications based on my personal exam will be noted below), assessment, and plan as outlined in original note. Please see immediately below for my summary of findings and additional assessment and plan along with any meaningful corrections/explanations to the Subjective/Objective portions of the JOSE note will be noted." My portion of the encounter took place via telemedicine. -Patient presenting with atypical chest pain but admitted to rule out ACS due to risk factors. Denies any cardiac history and reports prior negative stress tests. Will do serial trops, EKG if any change in clinical status
[2024-07-31] MEDS ORDERED: DUONEB 0.5-3 MG/3 ml Neb IH PRN (14:10)
[2024-07-31] MEDS ORDERED: HUMALOG SQ PRN (14:10)
[2024-07-31] MEDS ORDERED: ANTIVERT 25 MG PO PRN (14:39)
[2024-07-31] MEDS ORDERED: VENTOLIN COMMON CANISTER IH PRN (14:39)
[2024-07-31] MEDS ORDERED: MELATONIN PO PRN (14:42)
[2024-07-31] MEDS: Lasix 40 MG/4 ML IV ONE (15:41)
[2024-07-31] MEDS: TRIMETHOPRIM OP SCH (15:51)
[2024-07-31] MEDS: POLYMYXIN B SULF OP SCH (15:51)
[2024-07-31] MEDS: [UNRECOGNIZED DRUG - OTHER] OP SCH (15:51)
[2024-07-31] MEDS ORDERED: MEDICATION INTERVENTION MC SCH (16:00)
[2024-07-31] MEDS: Zofran 4 MG/2 ML VIAL IV PRN (16:35)
[2024-07-31] MEDS: TYLENOL 325 MG PO PRN (16:40)
--- NOTE | 2024-07-31 19:56 | XRAY ---
Indication: Chest pain. Short of breath. Comparison: June 18, 2024 Portable chest demonstrates stable right upper lobe calcified granuloma. No focal infiltrate, consolidation, or large effusion. Heart not enlarged. Bony thorax intact again with osteopenia, degenerative changes, and right shoulder arthroplasty. Impression: Continued nonacute chest with chronic features.
[2024-07-31] MEDS: Advair Hfa 115/21 Common canister IH SCH (19:57)
[2024-07-31] MEDS: ELIQUIS 2.5 MG TABLET PO SCH (21:26)
[2024-07-31] MEDS: MAG-OX 400 PO SCH (21:26)
[2024-07-31] MEDS: Coreg PO SCH (21:27)
[2024-07-31] MEDS ORDERED: NON-FORMULARY ITEM (Budesonide/Glycopyr/Formoterol [Breztri Aerosphere Inhaler] 10.7 GM Hf IH SCH (22:00)
[2024-07-31] MEDS ORDERED: Coreg 3.125 MG PO SCH (22:00)
[2024-07-31] MEDS ORDERED: NON-FORMULARY ITEM (Apixaban*** [Eliquis 5 Mg Tablet***] 5 MG Tablet) PO SCH (22:00)
[2024-08-01 05:25] LABS: Absolute Neutrophil Ct (ANC) 4.35 x10^3/uL (1.56-6.13); BASOPHIL % 0.5 % (0.1-1.2); Basophil (Absolute #) 0.03 x10^3/uL (0.01-0.08); Eosinophil % 2.3 % (0.7-5.8); Eosinophil (Absolute #) 0.15 x10^3/uL (0.04-0.36); Hematocrit 41.9 % (34.1-44.9); Hemoglobin 12.9 g/dL (11.2-15.7); IMMATURE GRAN # 0.03 x10^3u/L (0.001-0.031); IMMATURE GRAN % 0.5 % (0.001-0.429); Lymphocyte (Absolute #) 1.46 x10^3/uL (1.18-3.74); Lymphocytes % 22.1 % (19.3-51.7); Mean Cell Volume 86.7 fL (79.4-94.8); Mean Corpuscular Hemoglobin 26.7 pg (25.6-32.2); Mean Corpuscular Hgb Concent. 30.8 g/dL (32.2-35.5); Mean Platelet Volume 10.6 fL (9.4-12.3); Monocyte (Absolute #) 0.59 x10^3/uL (0.24-0.86); Monocytes % 8.9 % (4.7-12.5); Neutrophil % 65.7 % (34.0-71.1); Platelet Count 250 x10^3/uL (182-369); Red Blood Count 4.83 x10^6/uL (3.93-5.22); Red Cell Distribution Width 13.8 % (11.7-14.4); White Blood Count 6.6 x10^3/uL (3.98-10.04)
[2024-08-01 05:52] LABS: ANION GAP 11.1 MEQ/L (5-15); BILIRUBIN,TOTAL 0.5 mg/dL (0.2-1.3); Calcium 8.9 mg/dL (8.4-10.2); Creatinine 1 0.74 mg/dL (0.52-1.04); EST GLOMERULAR FILTRATION RATE 82.8 ML/MIN; Potassium 3.3 mmol/L (3.5-5.1); Total Protein 6.3 g/dL (6.3-8.2)
[2024-08-01] MEDS: Klor Con PO SCH ×2 (06:31→09:42)
[2024-08-01] MEDS: Spiriva 18 Mcg/Cap Inhaler IH SCH (07:18)
[2024-08-01] MEDS: VITAMIN D PO SCH (09:42)
[2024-08-01] MEDS: Lasix 40 MG PO SCH (09:42)
[2024-08-01] MEDS: Zetia 10 MG PO SCH (09:42)
[2024-08-01] MEDS: Lexapro PO SCH (09:42)
[2024-08-01] MEDS: Vitamin B-12 500 MCG PO SCH (09:42)
[2024-08-01] MEDS: Zestril 5 MG PO SCH (09:43)
[2024-08-01] MEDS ORDERED: CARBOXYMETHYLCELLULOSE SODIUM OP SCH (10:00)
[2024-08-01] MEDS ORDERED: NON-FORMULARY ITEM (Lisinopril [Zestril] 2.5 MG Tablet) PO SCH (10:00)
[2024-08-01] MEDS ORDERED: Artificial Tears 15 ML OP SCH (10:00)
[2024-08-01] MEDS ORDERED: NON-FORMULARY ITEM (Cholecalciferol (Vitamin D3) [Vitamin D3] 125 MCG Capsule) PO SCH (10:00)
[2024-08-01] MEDS ORDERED: NON-FORMULARY ITEM (Fexofenadine Hcl [Allegra Allergy] 60 MG Tablet) PO SCH (10:00)
[2024-08-01 11:28] VITALS: BP 188/72; PULSE 56; RESP 20; TEMP 97.3; O2SAT 95
--- NOTE | 2024-08-01 12:10 | PCM.DS ---
Discharge Summary Date of Admission: 07/31/24 13:12 Date of Discharge: 08/01/24 Admitting Physician: CAROL LE MD Primary Care Provider: DELTA RICHARDS DO Allergies Allergies pumpkin Adverse Reaction (Verified 07/31/24 09:34) Hospital Summary - Hospital Course Hospital Course: Ms. Stoll is a 79-year-old female with multiple cardiac risk factors, including diabetes mellitus, hyperlipidemia, and hypertension, who presented to the ED on 07/31/24 with complaints of chest pain that started approximately four hours prior to arrival. She described the pain as substernal, pressure-like, with no radiation, and associated with nausea and shortness of breath. There were no aggravating or relieving factors, and the chest pain improved, rated at 2/10. She also reported intermittent chest pain, along with a non-productive cough, shortness of breath, nausea, diarrhea, and generalized weakness since her last admission in May for pneumonia. Her past medical history includes fibromyalgia, COPD, diverticulosis, and depression. Upon arrival, her vital signs were stable. Lab results showed an elevated BNP but otherwise were unremarkable. A respiratory panel was negative, and a troponin level was within normal limits. She was given aspirin in the ED and admitted for chest pain. On 08/01/24, she was resting comfortably in bed, and labs were reviewed with her. Troponin levels were negative on three separate tests, and her potassium level of 3.3 was replaced. A chest X-ray was negative. She was able to walk with physical therapy without concern, and she had not experienced diarrhea since admission. Appointments were made with cardiology and her PCP for further follow-up. - Vitals & Intake/Output Vital Signs: Vital Signs Temperature 97.3 F 08/01/24 11:27 Pulse Rate 56 L 08/01/24 11:27 Respiratory Rate 20 08/01/24 11:27 Blood Pressure 188/72 08/01/24 11:27 O2 Sat by Pulse Oximetry 95 08/01/24 11:27 Intake & Output: Intake & Output 07/30/24 07/31/24 08/01/24 08/02/24 10:59 11:59 11:59 11:59 Intake Total 1250 Output Total 1350 Balance -100 Weight 109.3 kg - Lab Result Diagrams: 08/01/24 05:19 08/01/24 05:19 Lab Results-Last 24 Hrs: Lab Results-Last 24 Hours 07/31/24 07/31/24 07/31/24 Range/Units 10:32 14:00 16:05 WBC (3.98-10.04) x10^3/uL RBC (3.93-5.22) x10^6/uL Hgb (11.2-15.7) g/dL Hct (34.1-44.9) % MCV (79.4-94.8) fL MCH (25.6-32.2) pg MCHC (32.2-35.5) g/dL RDW (11.7-14.4) % Plt Count (182-369) x10^3/uL MPV (9.4-12.3) fL Gran % (34.0-71.1) % Immature Gran % (Auto) (0.001-0.429) % Nucleat RBC Rel Count (0.00-0.2) % Eos # (Auto) (0.04-0.36) x10^3/uL Immature Gran # (Auto) (0.001-0.031) x10^3u/L Absolute Lymphs (auto) (1.18-3.74) x10^3/uL Absolute Monos (auto) (0.24-0.86) x10^3/uL Absolute Nucleated RBC (0.00-0.012) x10^3u/L Lymphocytes % (19.3-51.7) % Monocytes % (4.7-12.5) % Eosinophils % (0.7-5.8) % Basophils % (0.1-1.2) % Absolute Granulocytes (1.56-6.13) x10^3/uL Basophils # (0.01-0.08) x10^3/uL Sodium (135-145) mmol/L Potassium (3.5-5.1) mmol/L Chloride (98-107) mmol/L Carbon Dioxide (22-30) mmol/L Anion Gap (5-15) MEQ/L BUN (7-17) mg/dL Creatinine (0.52-1.04) mg/dL Estimated GFR ML/MIN Glucose (74-106) mg/dL POC Glucometer 138 H (74 to 106) mg/dL Calcium (8.4-10.2) mg/dL Total Bilirubin (0.2-1.3) mg/dL AST (14-36) U/L ALT (0-35) U/L Alkaline Phosphatase (38-126) U/L Troponin I < 0.012 (0.000-0.033) ng/mL NT-Pro-B Natriuret Pep 888 (<300) pg/mL Serum Total Protein (6.3-8.2) g/dL Albumin (3.5-5.0) g/dL 07/31/24 07/31/24 08/01/24 Range/Units 18:30 22:16 05:19 WBC 6.6 (3.98-10.04) x10^3/uL RBC 4.83 (3.93-5.22) x10^6/uL Hgb 12.9 (11.2-15.7) g/dL Hct 41.9 (34.1-44.9) % MCV 86.7 (79.4-94.8) fL MCH 26.7 (25.6-32.2) pg MCHC 30.8 L (32.2-35.5) g/dL RDW 13.8 (11.7-14.4) % Plt Count 250 (182-369) x10^3/uL MPV 10.6 (9.4-12.3) fL Gran % 65.7 (34.0-71.1) % Immature Gran % (Auto) 0.5 H (0.001-0.429) % Nucleat RBC Rel Count 0.0 (0.00-0.2) % Eos # (Auto) 0.15 (0.04-0.36) x10^3/uL Immature Gran # (Auto) 0.03 (0.001-0.031) x10^3u/L Absolute Lymphs (auto) 1.46 (1.18-3.74) x10^3/uL Absolute Monos (auto) 0.59 (0.24-0.86) x10^3/uL Absolute Nucleated RBC 0.00 (0.00-0.012) x10^3u/L Lymphocytes % 22.1 (19.3-51.7) % Monocytes % 8.9 (4.7-12.5) % Eosinophils % 2.3 (0.7-5.8) % Basophils % 0.5 (0.1-1.2) % Absolute Granulocytes 4.35 (1.56-6.13) x10^3/uL Basophils # 0.03 (0.01-0.08) x10^3/uL Sodium (135-145) mmol/L Potassium (3.5-5.1) mmol/L Chloride (98-107) mmol/L Carbon Dioxide (22-30) mmol/L Anion Gap (5-15) MEQ/L BUN (7-17) mg/dL Creatinine (0.52-1.04) mg/dL Estimated GFR ML/MIN Glucose (74-106) mg/dL POC Glucometer 115 H (74 to 106) mg/dL Calcium (8.4-10.2) mg/dL Total Bilirubin (0.2-1.3) mg/dL AST (14-36) U/L ALT (0-35) U/L Alkaline Phosphatase (38-126) U/L Troponin I < 0.012 (0.000-0.033) ng/mL NT-Pro-B Natriuret Pep (<300) pg/mL Serum Total Protein (6.3-8.2) g/dL Albumin (3.5-5.0) g/dL 08/01/24 08/01/24 08/01/24 Range/Units 05:19 07:20 11:07 WBC (3.98-10.04) x10^3/uL RBC (3.93-5.22) x10^6/uL Hgb (11.2-15.7) g/dL Hct (34.1-44.9) % MCV (79.4-94.8) fL MCH (25.6-32.2) pg MCHC (32.2-35.5) g/dL RDW (11.7-14.4) % Plt Count (182-369) x10^3/uL MPV (9.4-12.3) fL Gran % (34.0-71.1) % Immature Gran % (Auto) (0.001-0.429) % Nucleat RBC Rel Count (0.00-0.2) % Eos # (Auto) (0.04-0.36) x10^3/uL Immature Gran # (Auto) (0.001-0.031) x10^3u/L Absolute Lymphs (auto) (1.18-3.74) x10^3/uL Absolute Monos (auto) (0.24-0.86) x10^3/uL Absolute Nucleated RBC (0.00-0.012) x10^3u/L Lymphocytes % (19.3-51.7) % Monocytes % (4.7-12.5) % Eosinophils % (0.7-5.8) % Basophils % (0.1-1.2) % Absolute Granulocytes (1.56-6.13) x10^3/uL Basophils # (0.01-0.08) x10^3/uL Sodium 142 (135-145) mmol/L Potassium 3.3 L (3.5-5.1) mmol/L Chloride 104 (98-107) mmol/L Carbon Dioxide 30 (22-30) mmol/L Anion Gap 11.1 (5-15) MEQ/L BUN 14 (7-17) mg/dL Creatinine 0.74 (0.52-1.04) mg/dL Estimated GFR 82.8 ML/MIN Glucose 116 H (74-106) mg/dL POC Glucometer 111 H 113 H (74 to 106) mg/dL Calcium 8.9 (8.4-10.2) mg/dL Total Bilirubin 0.50 (0.2-1.3) mg/dL AST 34 (14-36) U/L ALT 35 (0-35) U/L Alkaline Phosphatase 68 (38-126) U/L Troponin I (0.000-0.033) ng/mL NT-Pro-B Natriuret Pep (<300) pg/mL Serum Total Protein 6.3 (6.3-8.2) g/dL Albumin 4.0 (3.5-5.0) g/dL Micro Results-Entire Visit: Microbiology 07/31/24 Unknown Stool Culture Result 1 - Final Stool Not Reportable Stool Culture Result 2 - Final Not Reportable Stool Culture Result 3 - Final Not Reportable Stool Culture Result 4 - Final Not Reportable Stool Culture Organism Suscept - Final Not Reportable Campylobacter Result 1 - Final Not Reportable Campylobacter Result 2 - Final Not Reportable Campylobactor Result 3 - Final Not Reportable Campylobacter Result 4 - Final Not Reportable Campylobactor Susceptibility - Final Not Reportable Accuchecks Date 08/01/24 Date 08/01/24 Date 07/31/24 Time 16:55 - Radiology Exams Ordered Rad Exams-Entire Visit: Radiology Procedures Category Date Time Status CHEST 1 VIEW (PORTABLE) Stat Exams 07/31/24 09:54 Completed - Procedures and Test Procedures and Tests throughout Hospitalization: Therapy Orders & Screens 07/31/24 13:43 RT Screen per Nursing Assess ONCE Comment: Protocol Order Physician Instructions: Greater than 3 points order RT Admission Screen Reason For Exam: Triggered on Admission Diagnosis: Chest pain Diagnosis: Chest pain Pneumonia: No Home O2: No Asthma: No CHF: Yes Home CPAP/BIPAP: No Home Nebs/MDI: Yes Total Points: 8 07/31/24 14:10 EKG REPEAT IN AM Comment: Diagnosis: Chest pain Respiratory Therapy Consult ONCE Comment: Reason For Exam: Diagnosis: Chest pain 07/31/24 15:24 Oxygen NASAL CANNULA 2 lpm Comment: Diagnosis: Chest pain 08/01/24 07:46 PT Eval & Treat (MD Order) ONCE Reason for Eval:: generalized weakness Diagnosis: Chest pain Discharge Exam General Appearance: no apparent distress, alert, obese Neurologic Exam: alert, oriented x 3, cooperative, normal mood/affect, nml cerebellar function, sensation nml, No motor deficits Eye Exam: PERRL, EOMI, eyes nml inspection Ears, Nose, Throat Exam: normal ENT inspection, pharynx normal, moist mucous membranes Neck Exam: normal inspection, non-tender, supple, full range of motion Respiratory Exam: normal breath sounds, lungs clear, No respiratory distress Cardiovascular Exam: regular rate/rhythm, normal heart sounds Gastrointestinal/Abdomen Exam: soft, No tenderness, No mass Pelvic Exam: deferred Rectal Exam: deferred Back Exam: normal inspection, normal range of motion, No CVA tenderness, No vertebral tenderness Extremity Exam: normal inspection, normal range of motion Skin Exam: normal color, warm, dry Final Diagnosis/Problem List - Final Discharge Diagnosis/Problem (1) Chest pain Current Visit: Yes Status: Acute Assessment & Plan: -Trops x 3 negative -EKG with RBBB NS - No ST elevation/deviations -CXR negative -Lasix 40mg x 1 dose - no edema on exam -BNP 888 -elevate HOB/Daily weights - F/u with cardiology OP Code(s): R07.9 - CHEST PAIN, UNSPECIFIED (2) COPD (chronic obstructive pulmonary disease) Current Visit: Yes Status: Chronic Assessment & Plan: - Not in acute exacerbation - CXR negative - Respiratory panel negative - CBC, CMP reviewed - Cough syrup (3) Diarrhea Current Visit: Yes Status: Resolved Assessment & Plan: - no diarrhea since admission Code(s): R19.7 - DIARRHEA, UNSPECIFIED (4) Nausea Current Visit: Yes Status: Resolved Assessment & Plan: - resolved Code(s): R11.0 - NAUSEA (5) Generalized weakness Current Visit: No Status: Resolved Assessment & Plan: - Per PT eval- pt did well today walking - resolved Code(s): R53.1 - WEAKNESS (6) HLD (hyperlipidemia) Current Visit: No Status: Chronic Assessment & Plan: -Continue statin Code(s): E78.5 - HYPERLIPIDEMIA, UNSPECIFIED (7) HTN (hypertension) Current Visit: No Status: Chronic Assessment & Plan: -BP stable - use manual or large cuff for BP readings -continue home meds Code(s): I10 - ESSENTIAL (PRIMARY) HYPERTENSION (8) DM2 (diabetes mellitus, type 2) Current Visit: No Status: Chronic Assessment & Plan: -SSI -A1c reviewed from 06/18/24- good control at 5.33 -ADA diet (9) Morbid obesity with BMI of 45.0-49.9, adult Current Visit: Yes Status: Chronic Assessment & Plan: - advised diet and exercise control Code(s): E66.01 - MORBID (SEVERE) OBESITY DUE TO EXCESS CALORIES; Z68.42 - BODY MASS INDEX [BMI] 45.0-49.9, ADULT - Discharge Discharge Date: 08/01/24 Disposition: Home, Self-Care Condition: Stable Prescriptions: Continue Furosemide 40 mg [Lasix 40 MG] 40 mg PO DAILY Fexofenadine HCl [Jenni Allergy] 60 mg PO DAILY Ezetimibe 10 mg [Zetia 10 MG] 10 mg PO DAILY Escitalopram Oxalate [Lexapro] 20 mg PO DAILY Cholecalciferol (Vitamin D3) [Vitamin D3] 125 mg PO DAILY Carvedilol 3.125 mg [Coreg 3.125 MG] 6.25 mg PO BID Apixaban [Eliquis 5 mg Tablet] 5 mg PO BID Potassium Chloride 10 meq PO DAILY Magnesium Oxide 400 mg [Mag-Ox 400] 400 mg PO BID Albuterol Common Canister [Ventolin Common Canister] 3 puff IH Q4H PRN PRN PRN Reason: wheezing Rutin/Hesp/Bioflav/C/[id number] [Bioflex Tablet] 1 tab PO DAILY Meclizine HCl 25 mg [Antivert 25 mg] 25 mg PO DAILY PRN PRN Reason: Nausea Cyanocobalamin 500 Mcg [Vitamin B-12 500 MCG] 1,000 mcg PO DAILY Carboxymethylcellulose Sodium [Artificial Tears] 1 drop OP DAILY Cranberry Conc/C/Bacill Coag [Azo Cranberry Tablet] 1 each PO DAILY Budesonide/Glycopyr/Formoterol [Breztri Aerosphere Inhaler] 2 puffs IH BID lisinopriL [Zestril] 2.5 mg PO DAILY Non-Formulary Drug [Non-Formulary Bulk Item] 1 - 2 each PO QHS Additional Instructions: [facility] HAS BEEN SET UP FOR YOU. THEY WILL CALL YOU TO ARRANGE A TIME TO COME SEE YOU. THEIR PHONE NUMBER IS [phone] IF YOU NEED ANYTHING BEFORE THEIR FIRST VISIT Follow up with: DARIO CHAU [CONSULTING PHYSICIAN] - 08/11/24 3:00 pm ([place] Office) TRACY RIVERA, PLANNING CONSULTANT [ALLIED HEALTH PROFESSION STAFF] - 08/05/24 10:00 am
== END 2024-08-01 14:15 | disposition home or self-care (01) ==
LOC: ED 09:16 → MED SURG 13:12
PROVIDERS: ADMIT Internal Medicine; ATTEND Internal Medicine
DX: R07.9 Chest pain, unspecified (principal); J44.9 Chronic obstructive pulmonary disease, unspecified; R19.7 Diarrhea, unspecified; R11.0 Nausea; R53.1 Weakness; E78.5 Hyperlipidemia, unspecified; I11.0 Hypertensive heart disease with heart failure; I50.9 Heart failure, unspecified; E11.9 Type 2 diabetes mellitus without complications; E66.01 Morbid (severe) obesity due to excess calories; Z68.42 Body mass index [BMI] 45.0-49.9, adult; Z79.01 Long term (current) use of anticoagulants; Z79.899 Other long term (current) drug therapy
CPT/HCPCS: 0241U; 36415; 71045; 80053; 82947; 83880; 84484; 85025; 85379; 93005; 93041; 94640; 94760; 93268; 99284; J1940; J2405; Q3014; A9270-GY; G0378

== ENCOUNTER 2024-09-21 11:29 | Emergency (ER) | payer MEDICARE, OTHER ==
[2024-09-21 11:43] VITALS: TEMP 96.6
--- NOTE | 2024-09-21 12:02 | ERPHSYRPT ---
- History of Present Illness Time Seen by Provider: 09/21/24 11:31 Source: patient Exam Limitations: no limitations Patient Subjective Stated Complaint: hypertension Triage Nursing Assessment: Pt brought to the ER by her health care worker, hypertensive, denies pain, pulses normal, skin n/w/d, denies chest pain, no difficulty breathing, doesn't appear to be in any distress Physician History: 79 years old female with history of hypertension presented to the ER with elevated blood pressure since last night. Patient report her blood pressure is staying more than 200s, was 211 systolic prior to arrival. Patient denies any chest pain palpitations or shortness of breath associated with it. No visual changes, minimal headache at time, no numbness tingling or focal weakness. No abdominal pain nausea or vomiting. Patient reports she increased her allergy pill lately which might have been causing this elevation in blood pressure. Denies any extra salt intake, no swelling of lower extremities. No cough fever or chills reported. Patient blood pressure was 197 initially but improved to 170s when I checked it during my evaluation. Allergies/Adverse Reactions: pumpkin Adverse Reaction (Verified 09/21/24 11:43) Home Medications: Albuterol Common Canister [Ventolin Common Canister] 3 puff IH Q4H PRN PRN 08/21/21 [History] Apixaban [Eliquis 5 mg Tablet] 5 mg PO BID 08/21/21 [History] Carvedilol 3.125 mg [Coreg 3.125 MG] 6.25 mg PO BID 08/21/21 [History] Cholecalciferol (Vitamin D3) [Vitamin D3] 125 mg PO DAILY 08/21/21 [History] Escitalopram Oxalate [Lexapro] 20 mg PO DAILY 08/21/21 [History] Ezetimibe 10 mg [Zetia 10 MG] 10 mg PO DAILY 08/21/21 [History] Fexofenadine HCl [Jenni Allergy] 60 mg PO DAILY 08/21/21 [History] Furosemide 40 mg [Lasix 40 MG] 40 mg PO DAILY 08/21/21 [History] Magnesium Oxide 400 mg [Mag-Ox 400] 400 mg PO BID 08/21/21 [History] Potassium Chloride 10 meq PO DAILY 08/21/21 [History] Cyanocobalamin 500 Mcg [Vitamin B-12 500 MCG] 1,000 mcg PO DAILY 06/18/24 [History] Meclizine HCl 25 mg [Antivert 25 mg] 25 mg PO DAILY PRN 06/18/24 [History] Rutin/Hesp/Bioflav/C/[id number] [Bioflex Tablet] 1 tab PO DAILY 06/18/24 [History] Budesonide/Glycopyr/Formoterol [Breztri Aerosphere Inhaler] 2 puffs IH BID 07/31/24 [History] Carboxymethylcellulose Sodium [Artificial Tears] 1 drop OP DAILY 07/31/24 [History] Cranberry Conc/C/Bacill Coag [Azo Cranberry Tablet] 1 each PO DAILY 07/31/24 [History] Non-Formulary Drug [Non-Formulary Bulk Item] 1 - 2 each PO QHS 07/31/24 [History] lisinopriL [Zestril] 2.5 mg PO DAILY 07/31/24 [History] Hx Tetanus, Diphtheria Vaccination/Date Given: Yes Hx Influenza Vaccination/Date Given: Yes Hx Pneumococcal Vaccination/Date Given: Yes Travel Risk - International Travel Have you traveled outside of the country in past 3 weeks: No - Emerging Infectious Disease Are you exhibiting symptoms associated with any current EIDs: No Symptoms: Cough: New Onset, Shortness of Breath Comment: chest pain - Review of Systems Constitutional: No Symptoms Eyes: No Symptoms Ears, Nose, & Throat: No Symptoms Respiratory: No Symptoms Cardiac: No Symptoms Abdominal/Gastrointestinal: No Symptoms Genitourinary Symptoms: No Symptoms Musculoskeletal: Arthralgias Skin: No Symptoms Neurological: No Symptoms Endocrine: No Symptoms Hematologic/Lymphatic: No Symptoms - Past Medical History Pertinent Past Medical History: Yes Neurological History: Migraines, Peripheral Neuropathy ENT History: Cataracts Cardiac History: Arrhythmia, High Cholesterol, Hypertension Respiratory History: COPD Endocrine Medical History: Other Musculoskeletal History: Degenerative Disk Disease, Osteoarthritis GI Medical History: Diverticulitis, Diverticulosis History: No Pertinent History Psycho-Social History: Depression Female Reproductive Disorders: No Pertinent History Other Medical History: Board Filler: Dr. Chau, Leaf Sorter: Dr. Cardozo, "blood clots", Insomnia - Past Surgical History Past Surgical History: Yes Neuro Surgical History: No Pertinent History Cardiac: No Pertinent History Respiratory: No Pertinent History Gastrointestinal: Cholecystectomy Genitourinary: No Pertinent History Musculoskeletal: Joint Replacement, Other Female Surgical History: Tubal Ligation Other Surgical History: repair of broken finger, right shoulder surgery,removed bone spurs, aurora . IOL, repair torn retna right eye, right total knee replacement Significant Family History: heart disease, cancer, diabetes - Social History Smoking Status: Former smoker How long have you smoked: Years Exposure to second hand smoke: No Drug Use: none - Social Determinants of Health Will the patient participate in the screening: Yes Do you worry about a steady place to live?: No Do you have any problems with any of the following?: No known problems In the past 12 months,have you had to go without utilities?: No Transportation Issues: No Has anyone in your support network made you feel unsafe?: No Have you or anyone in your house had to go w/o enough food: No - Nursing Vital Signs Nursing Vital Signs: Initial Vital Signs Temperature 96.6 F 09/21/24 11:37 Pulse Rate 62 09/21/24 11:37 Blood Pressure 197/69 09/21/24 11:37 O2 Sat by Pulse Oximetry 95 09/21/24 11:37 Pain Scale Pain Intensity 0 - Physical Exam General Appearance: no apparent distress, alert Eye Exam: PERRL/EOMI Ears, Nose, Throat Exam: normal ENT inspection Neck Exam: normal inspection, supple, full range of motion Respiratory Exam: normal breath sounds, lungs clear Cardiovascular Exam: regular rate/rhythm, normal heart sounds Gastrointestinal/Abdomen Exam: soft, normal bowel sounds, No tenderness Back Exam: normal inspection Extremity Exam: normal inspection, normal range of motion Neurologic Exam: alert, oriented x 3, cooperative, superintendent drivers II-XII nml as tested, normal mood/affect, nml cerebellar function, sensation nml, No motor deficits Skin Exam: normal color SpO2 Interpretation: normal SpO2: 95 O2 Delivery: Room Air - Course EKG Interpreted by Me: RATE (57), Sinus Mukesh, Left [place] Deviation, LAFB, Right Bundle Branch Block, Non-specific ST Changes Ordered Tests: Active Orders 24 hr Category Date Time Status Auto [employer] Porter STAT Care 09/21/24 11:59 Active EKG-ER Only STAT Care 09/21/24 11:59 Active IV Insertion STAT Care 09/21/24 11:59 Active CHEST 1 VIEW (PORTABLE) Stat Exams 09/21/24 11:59 Completed CBC W DIFF Stat Lab 09/21/24 12:10 Completed CMP Stat Lab 09/21/24 12:10 Completed NT PRO BNPII Stat Lab 09/21/24 12:10 Completed TROPONIN Q4H Lab 09/21/24 12:10 Completed TROPONIN Q4H Lab 09/21/24 16:00 Ordered TROPONIN Q4H Lab 09/21/24 20:00 Ordered Lab/Rad Data: Laboratory Result Diagrams 09/21/24 12:10 09/21/24 12:10 Laboratory Results 09/21/24 09/21/24 09/21/24 Range/Units 12:10 12:10 12:10 WBC 5.7 (3.98-10.04) x10^3/uL RBC 5.01 (3.93-5.22) x10^6/uL Hgb 13.5 (11.2-15.7) g/dL Hct 43.1 (34.1-44.9) % MCV 86.0 (79.4-94.8) fL MCH 26.9 (25.6-32.2) pg MCHC 31.3 L (32.2-35.5) g/dL RDW 13.5 (11.7-14.4) % Plt Count 228 (182-369) x10^3/uL MPV 10.3 (9.4-12.3) fL Gran % 55.0 (34.0-71.1) % Immature Gran % (Auto) 0.2 (0.001-0.429) % Nucleat RBC Rel Count 0.0 (0.00-0.2) % Eos # (Auto) 0.18 (0.04-0.36) x10^3/uL Immature Gran # (Auto) 0.01 (0.001-0.031) x10^3u/L Absolute Lymphs (auto) 1.79 (1.18-3.74) x10^3/uL Absolute Monos (auto) 0.56 (0.24-0.86) x10^3/uL Absolute Nucleated RBC 0.00 (0.00-0.012) x10^3u/L Lymphocytes % 31.2 (19.3-51.7) % Monocytes % 9.8 (4.7-12.5) % Eosinophils % 3.1 (0.7-5.8) % Basophils % 0.7 (0.1-1.2) % Absolute Granulocytes 3.15 (1.56-6.13) x10^3/uL Basophils # 0.04 (0.01-0.08) x10^3/uL Sodium 140 (135-145) mmol/L Potassium 4.2 (3.5-5.1) mmol/L Chloride 100 (98-107) mmol/L Carbon Dioxide 32 H (22-30) mmol/L Anion Gap 12.2 (5-15) MEQ/L BUN 13 (7-17) mg/dL Creatinine 0.79 (0.52-1.04) mg/dL Estimated GFR 76.5 ML/MIN Glucose 102 (74-106) mg/dL Calcium 9.3 (8.4-10.2) mg/dL Total Bilirubin 0.50 (0.2-1.3) mg/dL AST 30 (14-36) U/L ALT 29 (0-35) U/L Alkaline Phosphatase 80 (38-126) U/L Troponin I < 0.012 (0.000-0.033) ng/mL NT-Pro-B Natriuret Pep 177 (<300) pg/mL Serum Total Protein 6.0 L (6.3-8.2) g/dL Albumin 4.1 (3.5-5.0) g/dL - Progress Progress: improved Progress Note: 09/21/24 13:39 79 years old is evaluated in the ER for uncontrolled hypertension despite taking her routine medications. Patient blood pressure was 211 systolic prior to arrival, no signs symptoms of endorgan damage. EKG is sinus rhythm with no acute ST elevations. She has normal white count, chemistries fairly unremarkable. Negative troponins. Chest x-ray is negative for any acute cardiopulmonary findings interpreted by me followed by official read. Patient blood pressure improved to 160s without any intervention, do not think she needs emergent treatment for elevated blood pressure. I do believe patient needs adjustment in dosage of her medication. She does have appointment with cardiology in few days. I would give her clonidine to take as needed and keeping a log and follow-up outpatient with PCP and cardiology. Do not think patient needs any further workup or second troponin, stable for discharge. Shared the results of workup with patient and caregiver, recommended monitoring and outpatient follow-up which they seem understanding. Stable for discharge. Complexity of problems addressed: Moderate acute Complexity of data reviewed/analyzed: Moderate Risk of complication: Low to moderate Counseled pt/family regarding: lab results, diagnosis, need for follow-up, rad results Medical Desision Making - Independent Historian Additional History obtained from: Director Dental Services - Diagnostic Testing Diagnostic test were ordered, analyzed, and reviewed by me: Yes Radiological Interpretation: Interpreted by me, Reviewed by me - Risk of complications The pt has a mod risk of morbidity or mortality based on: Need for prescription drug management - Departure Departure Disposition: Home Clinical Impression: Uncontrolled hypertension Condition: Stable Critical Care Time: No Referrals: DELTA RICHARDS DO [Primary Care Provider, [facility]ILY [facility]ACTICE] - Follow up with PCP 1 day DARIO CHAU [CONSULTING PHYSICIAN, CARDIOLOGY] - Follow up/PCP as directed Referral Note: Call for appointment for reevaluation Instructions: Malignant Hypertension (DC) Additional Instructions: Monitor your blood pressure regularly, keep a log and follow-up with PCP and cardiology for reevaluation and adjustment in medications. Take clonidine 0.1 mg as needed for blood pressure greater than 160s Current to ER for persistent high blood pressure or if having headache, visual changes, chest pain palpitations or shortness of breath etc. Prescriptions: Clonidine HCl 0.1 mg [Clonidine 0.1 mg Tablet] 0.1 mg PO Q12H PRN PRN 10 Days #10 tablet PRN Reason: Hypertension
[2024-09-21 12:16] LABS: Absolute Neutrophil Ct (ANC) 3.15 x10^3/uL (1.56-6.13); BASOPHIL % 0.7 % (0.1-1.2); Basophil (Absolute #) 0.04 x10^3/uL (0.01-0.08); Eosinophil % 3.1 % (0.7-5.8); Eosinophil (Absolute #) 0.18 x10^3/uL (0.04-0.36); Hematocrit 43.1 % (34.1-44.9); Hemoglobin 13.5 g/dL (11.2-15.7); IMMATURE GRAN # 0.01 x10^3u/L (0.001-0.031); IMMATURE GRAN % 0.2 % (0.001-0.429); Lymphocyte (Absolute #) 1.79 x10^3/uL (1.18-3.74); Lymphocytes % 31.2 % (19.3-51.7); Mean Corpuscular Hemoglobin 26.9 pg (25.6-32.2); Mean Corpuscular Hgb Concent. 31.3 g/dL (32.2-35.5); Mean Platelet Volume 10.3 fL (9.4-12.3); Monocyte (Absolute #) 0.56 x10^3/uL (0.24-0.86); Monocytes % 9.8 % (4.7-12.5); Platelet Count 228 x10^3/uL (182-369); Red Blood Count 5.01 x10^6/uL (3.93-5.22); Red Cell Distribution Width 13.5 % (11.7-14.4); White Blood Count 5.7 x10^3/uL (3.98-10.04)
[2024-09-21 12:28] LABS: ALBUMIN 4.1 g/dL (3.5-5.0); ANION GAP 12.2 MEQ/L (5-15); BILIRUBIN,TOTAL 0.5 mg/dL (0.2-1.3); Calcium 9.3 mg/dL (8.4-10.2); Creatinine 1 0.79 mg/dL (0.52-1.04); EST GLOMERULAR FILTRATION RATE 76.5 ML/MIN; Potassium 4.2 mmol/L (3.5-5.1)
[2024-09-21 12:42] LABS: NT PRO BNPII 177 pg/mL (<300); TROPONIN < 0.012 ng/mL (0.000-0.033)
[2024-09-21 12:44] VITALS: O2SAT 95
[2024-09-21 13:01] VITALS: PULSE 59
--- NOTE | 2024-09-21 13:03 | XRAY ---
Indication: Hypertension. Comparison: July 31, 2024 Portable chest unchanged again demonstrating CT proven right upper lobe calcified granuloma. Remaining lungs clear. Heart not enlarged for AP portable technique. Bony thorax intact again with osteopenia, degenerative changes, and right shoulder arthroplasty. No new/acute findings.
[2024-09-21 13:56] VITALS: BP 187/74; RESP 16
== END 2024-09-21 14:02 | disposition home or self-care (01) ==
LOC: ED 11:29
DX: I10 Essential (primary) hypertension (principal); Z79.01 Long term (current) use of anticoagulants; Z79.899 Other long term (current) drug therapy
CPT/HCPCS: 36415; 71045; 80053; 83880; 84484; 85025; 93005; 93041; 99284; 99285